=== PATIENT | female | born 1940 | race Caucasian/White ===

== ENCOUNTER 2019-12-31 22:45 | Observation (INO) | payer MEDICARE, MEDICAID, SELFPAY ==
[2019-12-31 22:47] VITALS: BP 159/84; PULSE 116; RESP 21; TEMP 37.6; O2SAT 94; BMI 30.4
[2019-12-31 23:12] LABS: Basophils % 0.1 %; Eosinophils # 0.1 10^3/uL (0.0-0.8); Eosinophils % 0.4 %; Hematocrit 48.1 % (37.0-47.0); Hemoglobin 15.7 g/dL (11.5-15.3); Lymphocytes # 0.7 10^3/uL (0.8-4.8); Lymphocytes % 5.2 %; Mean Corpuscular HGB Conc 32.6 g/dL (30.0-36.0); Mean Corpuscular Hemoglobin 29.3 pg (28.0-34.0); Mean Corpuscular Volume 89.9 fL (81-99); Mean Platelet Volume 10.6 fL (7.4-10.4); Monocytes # 0.5 10^3/uL (0.2-0.9); Monocytes % 3.5 %; Neutrophils # 11.8 10^3/uL (1.8-7.7); Neutrophils % 90.4 %; Nucleated Red Blood Cells % 0 %; Platelet Count 321 10^3/cmm (130-400); Red Blood Count 5.35 10^6/uL (4.1-5.3); Red Cell Distribution Width 13.4 % (12.1-15.1)
--- NOTE | 2019-12-31 23:26 | ED_ITS ---
Documented by User: DAVID Trujillo 01/01/20 17:54 HPI - Abdominal Pain General: Chief Complaint: Abdominal Pain Stated Complaint: ABDOMINAL PAIN Time Seen by Provider: 12/31/19 23:26 Source: patient Mode of arrival: EMS Limitations: no limitations History of Present Illness: HPI narrative: Patient is a 79-year-old female who presents to ED today with complaints of abdominal pain. Patient states the pain began around 4:00-5:00 PM this evening. Patient tells me she has a history of IBS that has presented with abdominal pains previously but nothing has felt this severe. She has had one episode of vomiting. She reports some constipation. Denies fever/chills. Denies dysuria, frequency. She does report some urgency/hesitancy. MD elicited complaint: abdominal pain Pertinent past history: other (IBS) Onset (ago): hour(s) Pain Consistency: constant Location: Diffuse Severity: severe Quality: cramping and aching Radiation: none Migration to: no migration Exacerbating factors: nothing Relieving factors: nothing Associated Symptoms: Reports no associated symptoms, constipation, nausea and vomiting; Denies change in bowel habits, change in stool character, chills, diarrhea, dysuria, fever(s), hematochezia, melena and syncope Review of Systems Const: Denies: fever, chills or body aches Card: Denies: chest pain, palpitations, irregular heart rhythm, edema, lightheadedness, syncope or pre-syncope Resp: Denies: shortness of breath, productive cough or chest congestion GI: Reports: abdominal pain, nausea, vomiting and constipation; Denies: diarrhea, change in bowel habits, painful bowel movements, change in stool character, blood in stool, black tarry stool, white/light colored stool or fatty stool : Denies: flank pain, difficulty urinating, painful urination, urinary frequency, urinary urgency or urinary hesitancy Musc: Denies: neck pain or back pain Skin/Breast: Denies: rash Neuro: Denies: headache, numbness in extremities, weakness in extremities or changes in sensation PFS ED PFSH: Medical History Anxiety Depression GERD (gastroesophageal reflux disease) Hyperlipidemia Hypertension Peripheral neuropathy Peripheral vascular disease Skin cancer Surgical History H/O: hysterectomy Hx of cholecystectomy Hx of tonsillectomy Social History Smoking and tobacco status: never smoked Physical Exam Const: COMMON NORMALS: oriented x3, no limitations and alert GENERAL APPEARANCE: in distress (in pain) NUTRITIONAL APPEARANCE: obese HENMT: COMMON NORMALS: normocephalic and head/scalp atraumatic HEAD & SCALP: normocephalic and atraumatic Resp: COMMON NORMALS: normal respiratory effort and clear to auscultation bilaterally AUSCULTATION: clear to auscultation bilaterally Cardio: COMMON NORMALS: regular rhythm RATE: tachycardic RHYTHM: regular rhythm GI: INSPECTION: Yes other (distended) AUSCULTATION: Yes hypoactive bowel sounds PALPATION: Yes tender (diffuse) : COMMON NORMALS: Yes no CVA tenderness BLADDER/KIDNEY EXAM: Yes no CVA tenderness Back/Pelvis: COMMON NORMALS: no CVA tenderness Extremity: COMMON NORMALS: normal to inspection Neuro: COMMON NORMALS: oriented x3 SENSORIUM/ORIENTATION: Yes alert Skin: COMMON NORMALS: no rashes or lesions noted GENERAL SKIN EXAM: no rashes or lesions noted Course Vital Signs: Vital signs: Vital Signs Temperature 98.7 F 01/01/20 16:00 Pulse Rate 102 H 01/01/20 16:00 Respiratory Rate 20 H 01/01/20 16:00 Blood Pressure 158/88 01/01/20 16:00 Pulse Oximetry 93 01/01/20 16:00 MDM - Abdominal Pain MDM Narrative: Medical decision making narrative: Patient remains tachycardic even after starting her second liter of fluids. She has a white cell count of 13,000. Her lactate is 3.9. She has an overwhelming UTI with 2+ leuks and WBCs too many to count. She has required repeat pain medications here to adequately treat her symptoms. CT scan overall looks okay-questionable gastroenteritis. She has no pyelonephritis evident on the scan. Spoke to Dr. Kumar about admitting pt to hospital. Lab Data: Labs: Lab Results 12/31/19 12/31/19 12/31/19 Range/Units 22:59 22:59 22:59 WBC 13.0 H (4.0-10.0) 10^3/ uL RBC 5.35 H (4.1-5.3) 10^6/u L Hgb 15.7 H (11.5-15.3) g/dL Hct 48.1 H (37.0-47.0) % MCV 89.9 (81-99) fL MCH 29.3 (28.0-34.0) pg MCHC 32.6 (30.0-36.0) g/dL RDW 13.4 (12.1-15.1) % Plt Count 321 (130-400) 10^3/c mm MPV 10.6 H (7.4-10.4) fL Neut % (Auto) 90.4 % Lymph % (Auto) 5.2 % Mccracken % (Auto) 3.5 % Eos % (Auto) 0.4 % Baso % (Auto) 0.1 % Neut # (Auto) 11.8 H (1.8-7.7) 10^3/u L Lymph # (Auto) 0.7 L (0.8-4.8) 10^3/u L Mccracken # (Auto) 0.5 (0.2-0.9) 10^3/u L Eos # (Auto) 0.1 (0.0-0.8) 10^3/u L Baso # (Auto) 0.0 (0.0-0.1) 10^3/u L Nucleated RBC % (a uto) 0 % Nucleated RBCs # 0.0 /100WBC Sodium 140 (136-145) mmol/L Potassium 3.6 (3.5-5.1) mmol/L Chloride 98 (98-107) mmol/L Carbon Dioxide 22 (22-29) mmol/L Anion Gap 23.6 H (5-19) BUN 35 H (8-23) mg/dL Creatinine 1.0 H (0.5-0.9) mg/dL Glucose 140 H (65-115) mg/dL Calculated Osmolal ity 290 (285-295) mOsm/k g Lactate 3.9 H (0.5-2.2) mmol/L Calcium 10.4 (8.5-10.5) mg/dL Total Bilirubin 0.6 (0.15-1.2) mg/dL AST 19 (0-32) U/L ALT 16 (0-33) U/L Alkaline Phosphata se 101 (35-105) IU/L Total Protein 7.4 (6.6-8.7) g/dL Albumin 4.6 (3.5-5.2) g/dL Globulin 2.8 (1.3-4.6) g/dL Lipase 15 (13-60) U/L Urine Color (Yellow) Urine Appearance (CLEAR) Urine pH (5-7) Ur Specific Gravit y (1.005-1.030) Urine Protein (Negative) Urine Glucose (UA) (Normal) Urine Ketones (Negative) Urine Blood (Negative) Urine Nitrate (Negative) Urine Bilirubin (NEGATIVE) Urine Urobilinogen (Negative) mg/dL Ur Leukocyte Angeles ase (Negative) Urine RBC (0-2) /hpf Urine WBC (0-5) /hpf Ur Squamous Epith Cells (0-5) Ur Transition Epit h Cell /hpf Urine Bacteria (NONE) 01/01/20 Range/Units 01:50 WBC (4.0-10.0) 10^3/ uL RBC (4.1-5.3) 10^6/u L Hgb (11.5-15.3) g/dL Hct (37.0-47.0) % MCV (81-99) fL MCH (28.0-34.0) pg MCHC (30.0-36.0) g/dL RDW (12.1-15.1) % Plt Count (130-400) 10^3/c mm MPV (7.4-10.4) fL Neut % (Auto) % Lymph % (Auto) % Mccracken % (Auto) % Eos % (Auto) % Baso % (Auto) % Neut # (Auto) (1.8-7.7) 10^3/u L Lymph # (Auto) (0.8-4.8) 10^3/u L Mccracken # (Auto) (0.2-0.9) 10^3/u L Eos # (Auto) (0.0-0.8) 10^3/u L Baso # (Auto) (0.0-0.1) 10^3/u L Nucleated RBC % (a uto) % Nucleated RBCs # /100WBC Sodium (136-145) mmol/L Potassium (3.5-5.1) mmol/L Chloride (98-107) mmol/L Carbon Dioxide (22-29) mmol/L Anion Gap (5-19) BUN (8-23) mg/dL Creatinine (0.5-0.9) mg/dL Glucose (65-115) mg/dL Calculated Osmolal ity (285-295) mOsm/k g Lactate (0.5-2.2) mmol/L Calcium (8.5-10.5) mg/dL Total Bilirubin (0.15-1.2) mg/dL AST (0-32) U/L ALT (0-33) U/L Alkaline Phosphata se (35-105) IU/L Total Protein (6.6-8.7) g/dL Albumin (3.5-5.2) g/dL Globulin (1.3-4.6) g/dL Lipase (13-60) U/L Urine Color Yellow (Yellow) Urine Appearance Cloudy (CLEAR) Urine pH 6 (5-7) Ur Specific Gravit y 1.005 (1.005-1.030) Urine Protein Neg (Negative) Urine Glucose (UA) Norm (Normal) Urine Ketones Negative (Negative) Urine Blood Neg (Negative) Urine Nitrate Negative (Negative) Urine Bilirubin Neg (NEGATIVE) Urine Urobilinogen Norm (Negative) mg/dL Ur Leukocyte Angeles ase 2+ H (Negative) Urine RBC 0-4 H (0-2) /hpf Urine WBC Too numerous to c nt H (0-5) /hpf Ur Squamous Epith Cells 5-10 H (0-5) Ur Transition Epit h Cell 0-4 /hpf Urine Bacteria 4+ H (NONE) Discharge Plan Discharge Patient Disposition: Admitted As Inpatient Admit Provider: Alma White Clinical Impression: Acute pyelonephritis, Sepsis Condition: Stable Referrals: Linda Eduardo DO [Primary Care Provider] - Discharge Date/Time: 01/01/20 04:15 Coding Level of Care Code ED Assistant Head Cashier for Chg Fwd Exam Comprehensive Documented by User: Arnold Kumar DO 01/01/20 03:28 HPI - Abdominal Pain General: Chief Complaint: Abdominal Pain Stated Complaint: ABDOMINAL PAIN Time Seen by Provider: 12/31/19 23:26 PFS ED PFSH: Medical History Anxiety Depression GERD (gastroesophageal reflux disease) Hyperlipidemia Hypertension Peripheral neuropathy Peripheral vascular disease Skin cancer Surgical History H/O: hysterectomy Hx of cholecystectomy Hx of tonsillectomy Social History Smoking and tobacco status: never smoked Course ED course: Reviewed patient with DAVID Trujillo. Agree with assessment and plan discussed Dr. Nixon will admit for early pyelonephritis sepsis. Patient been given fluid bolus mild improvement cells low-grade fever started on ceftriaxone Vital Signs: Vital signs: Vital Signs Temperature 98.7 F 01/01/20 16:00 Pulse Rate 102 H 01/01/20 16:00 Respiratory Rate 20 H 01/01/20 16:00 Blood Pressure 158/88 01/01/20 16:00 Pulse Oximetry 93 01/01/20 16:00 MDM - Abdominal Pain Lab Data: Labs: Lab Results 12/31/19 12/31/19 12/31/19 Range/Units 22:59 22:59 22:59 WBC 13.0 H (4.0-10.0) 10^3/ uL RBC 5.35 H (4.1-5.3) 10^6/u L Hgb 15.7 H (11.5-15.3) g/dL Hct 48.1 H (37.0-47.0) % MCV 89.9 (81-99) fL MCH 29.3 (28.0-34.0) pg MCHC 32.6 (30.0-36.0) g/dL RDW 13.4 (12.1-15.1) % Plt Count 321 (130-400) 10^3/c mm MPV 10.6 H (7.4-10.4) fL Neut % (Auto) 90.4 % Lymph % (Auto) 5.2 % Mccracken % (Auto) 3.5 % Eos % (Auto) 0.4 % Baso % (Auto) 0.1 % Neut # (Auto) 11.8 H (1.8-7.7) 10^3/u L Lymph # (Auto) 0.7 L (0.8-4.8) 10^3/u L Mccracken # (Auto) 0.5 (0.2-0.9) 10^3/u L Eos # (Auto) 0.1 (0.0-0.8) 10^3/u L Baso # (Auto) 0.0 (0.0-0.1) 10^3/u L Nucleated RBC % (a uto) 0 % Nucleated RBCs # 0.0 /100WBC Sodium 140 (136-145) mmol/L Potassium 3.6 (3.5-5.1) mmol/L Chloride 98 (98-107) mmol/L Carbon Dioxide 22 (22-29) mmol/L Anion Gap 23.6 H (5-19) BUN 35 H (8-23) mg/dL Creatinine 1.0 H (0.5-0.9) mg/dL Glucose 140 H (65-115) mg/dL Calculated Osmolal ity 290 (285-295) mOsm/k g Lactate 3.9 H (0.5-2.2) mmol/L Calcium 10.4 (8.5-10.5) mg/dL Total Bilirubin 0.6 (0.15-1.2) mg/dL AST 19 (0-32) U/L ALT 16 (0-33) U/L Alkaline Phosphata se 101 (35-105) IU/L Total Protein 7.4 (6.6-8.7) g/dL Albumin 4.6 (3.5-5.2) g/dL Globulin 2.8 (1.3-4.6) g/dL Lipase 15 (13-60) U/L Urine Color (Yellow) Urine Appearance (CLEAR) Urine pH (5-7) Ur Specific Gravit y (1.005-1.030) Urine Protein (Negative) Urine Glucose (UA) (Normal) Urine Ketones (Negative) Urine Blood (Negative) Urine Nitrate (Negative) Urine Bilirubin (NEGATIVE) Urine Urobilinogen (Negative) mg/dL Ur Leukocyte Angeles ase (Negative) Urine RBC (0-2) /hpf Urine WBC (0-5) /hpf Ur Squamous Epith Cells (0-5) Ur Transition Epit h Cell /hpf Urine Bacteria (NONE) 01/01/20 Range/Units 01:50 WBC (4.0-10.0) 10^3/ uL RBC (4.1-5.3) 10^6/u L Hgb (11.5-15.3) g/dL Hct (37.0-47.0) % MCV (81-99) fL MCH (28.0-34.0) pg MCHC (30.0-36.0) g/dL RDW (12.1-15.1) % Plt Count (130-400) 10^3/c mm MPV (7.4-10.4) fL Neut % (Auto) % Lymph % (Auto) % Mccracken % (Auto) % Eos % (Auto) % Baso % (Auto) % Neut # (Auto) (1.8-7.7) 10^3/u L Lymph # (Auto) (0.8-4.8) 10^3/u L Mccracken # (Auto) (0.2-0.9) 10^3/u L Eos # (Auto) (0.0-0.8) 10^3/u L Baso # (Auto) (0.0-0.1) 10^3/u L Nucleated RBC % (a uto) % Nucleated RBCs # /100WBC Sodium (136-145) mmol/L Potassium (3.5-5.1) mmol/L Chloride (98-107) mmol/L Carbon Dioxide (22-29) mmol/L Anion Gap (5-19) BUN (8-23) mg/dL Creatinine (0.5-0.9) mg/dL Glucose (65-115) mg/dL Calculated Osmolal ity (285-295) mOsm/k g Lactate (0.5-2.2) mmol/L Calcium (8.5-10.5) mg/dL Total Bilirubin (0.15-1.2) mg/dL AST (0-32) U/L ALT (0-33) U/L Alkaline Phosphata se (35-105) IU/L Total Protein (6.6-8.7) g/dL Albumin (3.5-5.2) g/dL Globulin (1.3-4.6) g/dL Lipase (13-60) U/L Urine Color Yellow (Yellow) Urine Appearance Cloudy (CLEAR) Urine pH 6 (5-7) Ur Specific Gravit y 1.005 (1.005-1.030) Urine Protein Neg (Negative) Urine Glucose (UA) Norm (Normal) Urine Ketones Negative (Negative) Urine Blood Neg (Negative) Urine Nitrate Negative (Negative) Urine Bilirubin Neg (NEGATIVE) Urine Urobilinogen Norm (Negative) mg/dL Ur Leukocyte Angeles ase 2+ H (Negative) Urine RBC 0-4 H (0-2) /hpf Urine WBC Too numerous to c nt H (0-5) /hpf Ur Squamous Epith Cells 5-10 H (0-5) Ur Transition Epit h Cell 0-4 /hpf Urine Bacteria 4+ H (NONE) Discharge Plan Discharge Patient Disposition: Admitted As Inpatient Admit Provider: Alma White Clinical Impression: Acute pyelonephritis, Sepsis Condition: Stable Referrals: Linda Eduardo DO [Primary Care Provider] - Discharge Date/Time: 01/01/20 04:15 Coding Level of Care Code ED Assistant Head Cashier for Chg Fwd Exam Comprehensive
[2019-12-31 23:31] LABS: Alanine Aminotransferase 16 U/L (0-33); Albumin Level 4.6 g/dL (3.5-5.2); Alkaline Phosphatase 101 IU/L (35-105); Anion Gap 23.6 (5-19); Aspartate Amino Transferase 19 U/L (0-32); Blood Urea Nitrogen 35 mg/dL (8-23); Calcium 10.4 mg/dL (8.5-10.5); Carbon Dioxide 22 mmol/L (22-29); Chloride 98 mmol/L (98-107); Globulin 2.8 g/dL (1.3-4.6); Glucose 140 mg/dL (65-115); Lipase 15 U/L (13-60); Osmolality Calculated 290 mOsm/kg (285-295); Potassium 3.6 mmol/L (3.5-5.1); Sodium 140 mmol/L (136-145); Total Bilirubin 0.6 mg/dL (0.15-1.2); Total Protein 7.4 g/dL (6.6-8.7)
--- NOTE | 2019-12-31 23:39 | CTR_ITS ---
PROCEDURE INFORMATION: Exam: CT Abdomen And Pelvis With Contrast Exam date and time: 12/31/2019 12:01 AM Age: 79 years old Clinical indication: Vomiting; Abdominal pain; Generalized; Prior surgery; Surgery type: Cholecystectomy; Additional info: Diffuse abdominal pain; Vomiting TECHNIQUE: Imaging protocol: Computed tomography of the abdomen and pelvis with intravenous contrast. Total DLP: 1393.87 mGy-cm Radiation optimization: All CT scans at this facility use at least one of these dose optimization techniques: automated exposure control; mA and/or kV adjustment per patient size (includes targeted exams where dose is matched to clinical indication); or iterative reconstruction. Contrast material: VISI; Contrast volume: 95 ml; Contrast route: 18G; COMPARISON: US gall bladder [id number] 04/10/2016 9:13 AM FINDINGS: Liver: There is no focal abnormality within the liver. Gallbladder and bile ducts: There has been a cholecystectomy. There is mild intrahepatic biliary tract dilatation and there is dilatation of the common bile duct to 13 mm. This is not unusual post cholecystectomy. Pancreas: Normal. No ductal dilation. Spleen: The spleen demonstrates punctate calcifications, consistent with remote granulomatous organism exposure. Adrenals: Normal. No mass. Kidneys and ureters: There are multiple simple renal cysts. Largest renal cyst on the right measures nearly 9 cm. There is no evidence of hydronephrosis. There is no evidence of renal or ureteral calcifications. Stomach and bowel: Stomach is mildly dilated with fluid. There is moderate fluid distention throughout the length of the colon which could represent some enteritis or diarrhea. Correlation with clinical findings is suggested. There is no evidence of intestinal obstruction. A few mildly fluid-filled loops of small bowel may represent some focal enteritis. Appendix: A normal appendix is identified. Intraperitoneal space: Unremarkable. No free air. No significant fluid collection. Vasculature: Unremarkable. No abdominal aortic aneurysm. Lymph nodes: Unremarkable. No enlarged lymph nodes. Bladder: Unremarkable as visualized. Reproductive: Unremarkable as visualized. Bones/joints: The lumbar spine demonstrates marked degenerative changes at multiple levels. There is a PLIF at L5-S1 and wide L5 laminectomy. Soft tissues: Unremarkable. CT/CT abdomen pelvis w con* [id number] IMPRESSION: 1. Findings may represent gastroenteritis. 2. No evidence of obstruction. 3. Bilateral kidney cysts. COMMENTS: Consistent with the [employer] [place] [employer]'s Incidental Findings Committee white paper (J Am Carol Radiol 2018): Any incidental cystic renal lesion classified in this report as too small to characterize or simple appearing is likely a benign cyst. No follow-up imaging is recommended for these lesions per consensus recommendations based on imaging criteria. Radiation Dose CTDIVOL = (mGy): DLP = 1393.87 (mGy-cm)
[2019-12-31 23:55] VITALS: RESP 16
[2019-12-31] MEDS: morphine 4 mg/mL SDV 1 mL IVP (23:55)
[2019-12-31] MEDS: ondansetron 2 mg/ML SDV 2 mL 4 MG IVP (23:55)
[2020-01-01] VITALS (19 sets, daily range): BP systolic 132–178; BP diastolic 55–91; PULSE 89–115; RESP 12–30; TEMP 36.8–38.2; O2SAT 93–100
[2020-01-01 00:26] LABS: Lactate (Lactic Acid level) 3.9 mmol/L (0.5-2.2)
[2020-01-01] MEDS: sodium chloride 0.9% 1,000 ML 999 ML IV (00:31)
[2020-01-01] MEDS: iodixanol 320 mg/mL 100mL Btl IV (01:11)
[2020-01-01] MEDS: fentaNYL 50 mcg/mL INJ 2mL IVP (02:13)
[2020-01-01 02:14] LABS: Urine Appearance Cloudy (CLEAR); Urine Color Yellow (Yellow)
[2020-01-01 02:15] LABS: Add Urine Microscopic? YES; Bilirubin Urine Neg (NEGATIVE); Blood Urine Neg (Negative); Glucose Urine UA Norm (Normal); Ketones Urine Negative (Negative); Leukocyte Esterase Urine 2+ (Negative); Nitrate Urine Negative (Negative); Protein Urine Neg (Negative); Specific Gravity, Urine 1.005 (1.005-1.030); Urobilinogen Urine Norm (Negative); pH Urine 6 (5-7)
--- NOTE | 2020-01-01 02:19 | XR_ITS ---
WS: [id number] XR chest 1V portable [id number] REASON FOR EXAM: cough/congestion FINDINGS: The minor fissure is somewhat depressed suggested hyperexpanded right upper lung. The heart is normal. There is no pneumonia, pleural effusion, pulmonary edema, or mass effect. The hilum and apices normal. XR/XR chest 1V portable [id number] IMPRESSION: Hyper aerated right upper lung Negative chest for acute findings.
[2020-01-01 02:30] LABS: RBC Urine 0-4 /hpf (0-2)
[2020-01-01 02:31] LABS: Add Urine Culture? Yes; Bacteria Urine 4+; Transitional Epi Cells Urine 0-4 /hpf; WBC Urine TOO NUMEROUS TO CNT /hpf (0-5)
[2020-01-01] MEDS: cefTRIAXone 1,000 MG in sodium chloride 0.9% (plus) 50 ML 100 MG IV (03:30)
--- NOTE | 2020-01-01 03:38 | PM.HP ---
Providers/Chief Complaint Admitting Physician: Alma White MD Primary Care Provider: Linda Eduardo DO Chief Complaint: ABDOMINAL PAIN History of Present Illness Kim Lin is a 79 year old female with HTN, HLD, PAD, depression, anxiety, GERD, TIA, OA, peripheral neuropathy presenting today with c/o abdominal pain in the left nury with radiation into back starting at 4 am today suddenly. No prior similar episodes. multiple episodes of vomiting+. Diarrhea 2 episodesa since coming to ER. Tmax 99.6F. denies dysuria. Ct abdomen with possible gatsroenteritis, B/L kidney cysts, no evidence of obstrcution. UA with numerous WBC. Review of Systems General: Reports: 10 or more systems reviewed and unremarkable except in HPI and below Const: Denies: fever, chills or body aches Eyes: Denies: change in vision, blurry vision or photophobia ENMT: Reports: hoarseness; Denies: throat pain, enlarged tonsils, painful swallowing or nasal congestion Card: Denies: chest pain, palpitations, irregular heart rhythm, edema, swelling of feet/ankles, lightheadedness, pre-syncope, shortness of breath on exertion or shortness of breath when lying down Resp: Denies: shortness of breath, productive cough, non-productive cough, wheezing, stridor, pain on inspiration, change in phlegm color, coughing up blood or chest congestion GI: Reports: abdominal pain, nausea and vomiting; Denies: vomiting blood, coffee grounds in vomit, difficulty swallowing, heartburn/indigestion, diarrhea, constipation, cramping, change in stool character, blood in stool or black tarry stool : Denies: flank pain, difficulty urinating, painful urination, urinary frequency, urinary urgency, urinary hesitancy or blood in urine Musc: Denies: neck pain, back pain, extremity pain, joint swelling, joint warmth or deformity Neuro: Denies: headache, numbness in extremities, weakness in extremities, changes in sensation, difficulty walking, frequent falls, dizziness, vertigo, behavioral changes, slurred speech or seizure-like activity Psych: Denies: anxiety, depression, suicidal ideation or homicidal ideation Endo: Denies: excessive urination, excessive thirst, tired all the time, cold intolerance or hot flashes William/Lymph: Denies: easy bruising or easy bleeding Medications/Allergies Home Medications Medication Instructions Recorded Confirmed Last Taken Type alprazolam 0.5 mg PO BID PRN 01/01/20 01/01/20 Unknown History aspirin 325 mg PO DAILY 01/01/20 01/01/20 Unknown History atorvastatin 40 mg PO QPM 01/01/20 01/01/20 Unknown History clopidogrel 75 mg PO DAILY 01/01/20 01/01/20 Unknown History diltiazem HCl 240 mg PO QAM 01/01/20 01/01/20 Unknown History diphenhydramine HCl 25 - 50 mg PO BEDTIME PRN 01/01/20 01/01/20 Unknown History gabapentin 1,200 mg PO TID 01/01/20 01/01/20 Unknown History hydrochlorothiazide 12.5 mg PO DAILY 01/01/20 01/01/20 Unknown History ibuprofen 200 - 800 mg PRN 01/01/20 Unknown History losartan 25 mg PO DAILY 01/01/20 01/01/20 Unknown History metoprolol tartrate 12.5 mg PO BID 01/01/20 01/01/20 Unknown History omeprazole magnesium [Prilosec OTC] 40 mg PO DAILY 01/01/20 01/01/20 Unknown History ondansetron HCl [Zofran] 4 mg PO Q8H PRN 01/01/20 01/01/20 Unknown History tizanidine [Zanaflex] 2 mg PO TID PRN 01/01/20 01/01/20 Unknown History tramadol [Ultram] 50 - 100 mg PO TID PRN 01/01/20 01/01/20 Unknown History vortioxetine [Trintellix] 10 mg PO DAILY 01/01/20 01/01/20 Unknown History zolpidem 10 mg PO BEDTIME PRN 01/01/20 01/01/20 Unknown History Allergies Allergy/AdvReac Type Severity Reaction Status Date / Time carvedilol [From Coreg] Allergy Unknown Verified 12/31/19 22:53 PFSH Acute PFSH: Medical History Anxiety Depression GERD (gastroesophageal reflux disease) Hyperlipidemia Hypertension Peripheral neuropathy Peripheral vascular disease Skin cancer Surgical History H/O: hysterectomy Hx of cholecystectomy Hx of tonsillectomy Social History Smoking and tobacco status: never smoked Vitals/I&O/Wt Last Vital Signs Temp 99.7 F H 12/31/19 22:47 Pulse 116 H 12/31/19 22:47 Resp 14 01/01/20 02:13 BP 159/84 12/31/19 22:47 Pulse Ox 94 12/31/19 22:47 Weight last 48 hrs Weight 85.729 kg Physical Exam Narrative: EXAM NARRATIVE: GEN: Awake, alert and oriented, no acute distress CVS: S1S2 N RS: CTA B/L Abd: Soft, nt/nd , bs+. 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[employer] EDUCATION: no focal neuro deficits Data : 12/31/19 22:59 12/31/19 22:59 Micro: Microbiology 01/01/20 03:00 Blood Culture - Preliminary Blood SPECIMEN COLLECTED 01/01/20 02:59 Blood Culture - Preliminary Blood SPECIMEN COLLECTED A&P Assessment and plan (1) Depression: Status: Acute Code(s): F32.9 - Major depressive disorder, single episode, unspecified (2) Peripheral vascular disease: Status: Acute Code(s): I73.9 - Peripheral vascular disease, unspecified (3) Hyperlipidemia: Status: Acute Code(s): E78.5 - Hyperlipidemia, unspecified (4) Hypertension: Status: Acute Code(s): I10 - Essential (primary) hypertension (5) Sepsis: Status: Acute Code(s): A41.9 - Sepsis, unspecified organism (6) Acute pyelonephritis: Status: Acute Code(s): N10 - Acute pyelonephritis Additional A&P Information Admit to med/surg Sepsis criteria met with tachycardia, elevated lactate,. leukocytosis . clinically appears to be left pyelonephritis empiric zosyn morphine and toradol for pain control +/- gatsroenteritis, 1 episode of diarrhea after ER presentation- check c diff and enteric PCR panel Full code dvt ppx: lovenox Attestations Medical Necessity Statement*: anticipate> 2Mn for pyeleopnephritis, iv abx Coding Level of Care Code Acute Pressure Tester for [facility] Fwd Diagnoses Depression F32.9 Peripheral vascular disease I73.9 Hyperlipidemia E78.5 Hypertension I10 Sepsis A41.9 Acute pyelonephritis N10
[2020-01-01] MEDS: morphine 4 mg/mL SDV 1 mL IVP (04:14)
--- NOTE | 2020-01-01 04:18 | PC.NURSE ---
RN reviewed and agrees with assessment
--- NOTE | 2020-01-01 04:20 | PC.NURSE ---
Arrived to unit from ER by wheelchair. Alert and oriented X4 . Breathing even and non-labored on room air. Reports abdominal pain 04/24.Denies nausea at this time, diarrhea on arrival to unit. Oriented to room and light, admission started by bid writer at this time.
[2020-01-01] MEDS: morphine 4 mg/mL SDV 1 mL 2 MG IVP (05:40)
[2020-01-01] MEDS: D5-NS 0.45% + KCL 20 mEq 20 MEQ/1,000 ML BAG 100 MEQ IV (05:40)
[2020-01-01] MEDS: ketorolac 30 mg/mL INJ 15 MG IVP (06:41)
--- NOTE | 2020-01-01 07:59 | XR_ITS ---
WS: [id number] XR KUB portable [id number] REASON FOR EXAM: sbo FINDINGS: Scattered gas in the small bowel is seen but no definite small bowel obstruction. There is contrast seen in the kidneys and urinary bladder and a cystocele is seen in the bladder. There is fusion of the L5-S1 area posteriorly. There is no free air in the abdomen. XR/XR KUB portable [id number] IMPRESSION: Contrast outlines portions of the kidneys and urinary bladder. There is no definite small bowel obstruction.
[2020-01-01] MEDS: HYDROmorphone 1 mg/mL INJ 1 mL IVP ×6 (08:09→22:34)
[2020-01-01] MEDS: enoxaparin 30 mg/0.3 mL Syringe SUBCUT (08:10)
[2020-01-01 08:42] LABS: Alanine Aminotransferase 16 U/L (0-33); Albumin Level 3.9 g/dL (3.5-5.2); Alkaline Phosphatase 83 IU/L (35-105); Aspartate Amino Transferase 21 U/L (0-32); C Reactive Protein 36.7 mg/L (0.0-4.9); Globulin 2.5 g/dL (1.3-4.6); Lipase 11 U/L (13-60); Magnesium 1.9 mg/dL (1.7-2.3); Phosphorus 2.4 mg/dL (2.5-4.5); Total Bilirubin 0.6 mg/dL (0.15-1.2); Total Protein 6.4 g/dL (6.6-8.7)
[2020-01-01 08:44] LABS: Troponin(5th) Baseline 19 ng/mL (0-10)
[2020-01-01 08:58] LABS: Lactic Sepsis W/Reflex 2.3 mmol/L (0.5-2.2)
[2020-01-01 09:10] LABS: Procalcitonin 0.18 ng/mL (0-0.5)
[2020-01-01 09:20] LABS: Erythrocyte Sedimentation Rate 10 mm/hr (0-15)
[2020-01-01] MEDS: sodium chloride 0.9% 1,000 ML 75 ML IV ×2 (09:28→23:35)
[2020-01-01] MEDS: piperacillin-tazobactam 3.375 GM in sodium chloride 0.9% (plus) 50 ML IV ×2 (09:29→16:41)
[2020-01-01] MEDS: ondansetron 2 mg/ML SDV 2 mL 4 MG IVP ×3 (09:29→20:39)
[2020-01-01 10:08] LABS: Troponin 5 2HR 17.74 ng/mL (0-10)
[2020-01-01 10:08] LABS: Reflex Lactate Order REFLEX LACTIC ORDERD
[2020-01-01 10:16] LABS: Troponin 5 2HR Delta -1.26 ABS# (0-10)
[2020-01-01 10:58] LABS: Lactic Acid level (Lactate) 1.1 mmol/L (0.5-2.2)
--- NOTE | 2020-01-01 12:41 | P.PN_ITS ---
Subjective Subjective: Interval history: This morning patient is laying in bed, with severe abdominal pain, states that no position is comfortable, states that the diarrhea that she experienced only began when she was here in the ER, states that she also has some back pain, continues to have mild low-grade fevers, feels nauseous, no lightheadedness, or dizziness, states that the pain medication is not helping or is wearing off quickly Vitals/I&O/Wt Last Vital Signs Temp 100.8 F H 01/01/20 08:00 Pulse 93 01/01/20 12:11 Resp 16 01/01/20 12:11 BP 134/55 01/01/20 12:11 Pulse Ox 96 01/01/20 12:11 12/31/19 01/01/20 01/01/20 22:59 06:59 14:59 Intake Total 1050 / 1050 375 / 375 Output Total 900 / 900 Balance 1050 / 1050 -525 / -525 Weight last 48 hrs Weight 85.729 kg Physical Exam Const: COMMON NORMALS: no apparent distress and oriented x3 HENMT: COMMON NORMALS: normocephalic HEAD & SCALP: normocephalic Neck/C-Spine: COMMON NORMALS: no JVD Resp: COMMON NORMALS: normal respiratory effort, no retractions, no use of accessory muscles and clear to auscultation bilaterally AUSCULTATION: clear to auscultation bilaterally Cardio: COMMON NORMALS: no JVD, regular rate, regular rhythm, S1 normal heart sound and S2 normal heart sound RATE: regular rate RHYTHM: regular rhythm HEART SOUNDS: S1 normal and S2 normal GI: COMMON NORMALS: normal to inspection, nondistended, normoactive bowel sounds, soft to palpation and no bruits PALPATION: Yes soft, Yes tender Details: LLQ, RLQ, LUQ and RUQ, No guarding, No rigid, No hepatosplenomegaly, No hepatomegaly, No splenomegaly and No rebound tenderness present PERCUSSION: normal to percussion Extremity: COMMON NORMALS: normal capillary refill, no clubbing, cyanosis or edema, no calf tenderness and no pedal edema Neuro: COMMON NORMALS: oriented x3 Psych: COMMON NORMALS: mental status grossly normal Data : 12/31/19 22:59 12/31/19 22:59 Micro: Microbiology 03/18/20 07:34 Enteric Pathogens (PCR) - Final Stool - Stool Aspirate C.difficile Toxin B Gene (PCR) - Final 01/01/20 03:00 Blood Culture - Preliminary Blood SPECIMEN COLLECTED 01/01/20 02:59 Blood Culture - Preliminary Blood SPECIMEN COLLECTED A&P Assessment and plan (1) Depression: Status: Acute Code(s): F32.9 - Major depressive disorder, single episode, unspecified (2) Peripheral vascular disease: Status: Acute Code(s): I73.9 - Peripheral vascular disease, unspecified (3) Hyperlipidemia: Status: Acute Code(s): E78.5 - Hyperlipidemia, unspecified (4) Hypertension: Status: Acute Code(s): I10 - Essential (primary) hypertension (5) Sepsis: Status: Acute Code(s): A41.9 - Sepsis, unspecified organism (6) Acute pyelonephritis: Status: Acute Code(s): N10 - Acute pyelonephritis Additional A&P Information Sepsis criteria met with tachycardia, elevated lactate,. leukocytosis, fevers clinically appears to be left pyelonephritis empiric zosyn Follow urine cultures, follow blood cultures Dilaudid for pain control Given gastroneuritis, will check a C. 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
--- NOTE | 2020-01-01 12:57 | ECG_ITS ---
Measurements Intervals [place] Rate: 89 P: 75 PA: 232 QRS: 3 QRSD: 119 T: 84 QT: 413 QTc: 503 SINUS RHYTHM WITH FIRST DEGREE AV BLOCK INCOMPLETE RIGHT BUNDLE BRANCH BLOCK [90+ ms QRS DURATION, TERMINAL R IN V1/V2, 40+ ms S IN I/aVL/V4/V5/V6] NONSPECIFIC T-WAVE ABNORMALITY Compared to ECG 11/02/2018 23:32:24 First degree AV block now present T-wave abnormality now present Ventricular premature complex(es) no longer present Indeterminate axis no longer present Electronically Signed On 01-02-2020 12:47:55 CDT by Fracisco Lucero [email or web address]
[2020-01-01] MEDS: metoclopramide 5 mg/mL SDV 2 mL IVP ×2 (13:15→18:33)
--- NOTE | 2020-01-01 13:21 | PC.NURSE ---
Patient reports and improvement in pain however continues to complain of severe nausea. Dr aware and orders received
[2020-01-01 13:48] LABS: Troponin 5 6HR 15.34 ng/mL (0-10)
[2020-01-01 13:49] LABS: Troponin 5 6HR Delta -3.66 ng/L (0-12)
--- NOTE | 2020-01-01 15:09 | PC.NURSE ---
Daughter Dotty here and reports that the patient came to her house to visit on Monday and that after she left that Dotty had NVD from an apparent GI virus that lasted 24 to [address] Vines notified
[2020-01-01] MEDS: ALPRAZolam 0.5 mg Tablet PO (23:34)
[2020-01-02] MEDS: piperacillin-tazobactam 3.375 GM in sodium chloride 0.9% (plus) 50 ML IV (00:32)
[2020-01-02 04:00] VITALS: BP 190/100; PULSE 115; RESP 24; TEMP 36.8; O2SAT 99
--- NOTE | 2020-01-02 04:43 | PC.NURSE ---
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 this nurse entered to help. pt is more unsteady on her feet than beginning of shift. pt reeducated about bed alarm and reminded to continue using call light. BSC placed at side of bed.
[2020-01-02 05:33] LABS: Eosinophils % 0.6 %; Hematocrit 41.7 % (37.0-47.0); Hemoglobin 13.5 g/dL (11.5-15.3); Lymphocytes # 1.8 10^3/uL (0.8-4.8); Lymphocytes % 26.1 %; Mean Corpuscular HGB Conc 32.4 g/dL (30.0-36.0); Mean Corpuscular Hemoglobin 29.6 pg (28.0-34.0); Mean Corpuscular Volume 91.4 fL (81-99); Mean Platelet Volume 10.7 fL (7.4-10.4); Monocytes # 0.7 10^3/uL (0.2-0.9); Monocytes % 10.4 %; Neutrophils # 4.2 10^3/uL (1.8-7.7); Neutrophils % 62.6 %; Nucleated Red Blood Cells % 0 %; Platelet Count 239 10^3/cmm (130-400); Red Blood Count 4.56 10^6/uL (4.1-5.3); White Blood Count 6.7 10^3/uL (4.0-10.0)
[2020-01-02 05:47] LABS: Alanine Aminotransferase 22 U/L (0-33); Alkaline Phosphatase 85 IU/L (35-105); Anion Gap 18.6 (5-19); Aspartate Amino Transferase 32 U/L (0-32); Blood Urea Nitrogen 18 mg/dL (8-23); Calcium 9.1 mg/dL (8.5-10.5); Carbon Dioxide 20 mmol/L (22-29); Chloride 109 mmol/L (98-107); Globulin 2.5 g/dL (1.3-4.6); Glucose 116 mg/dL (65-115); Osmolality Calculated 297 mOsm/kg (285-295); Sodium 145 mmol/L (136-145); Total Bilirubin 0.4 mg/dL (0.15-1.2); Total Protein 6.5 g/dL (6.6-8.7)
[2020-01-02 05:52] LABS: Potassium 2.6 mmol/L (3.5-5.1)
[2020-01-02 06:01] VITALS: RESP 18
[2020-01-02] MEDS: HYDROmorphone 1 mg/mL INJ 1 mL IVP (06:01)
[2020-01-02] MEDS: metoclopramide 5 mg/mL SDV 2 mL IVP (06:11)
--- NOTE | 2020-01-02 06:15 | PC.NURSE ---
pain medication pt requesting pain medication. this nurse pulled Tylenol for pt. pt asked why Tylenol was being given. pt specifically asked for Dilaudid. pt educated that it's best to start with the lowest dose medication and work up. pt also educated that tylenol is broken down in the liver whereas other medications are broken down in the kidneys and it would be easier on her kidneys since she is here for pyleonephritis. pt took the medicine cup of Tylenol, handed the cup back and stated, I don't want this. I might as well be taking water and it's just going to upset my stomach. I will not take this, I want the Dilaudid.
[2020-01-02] MEDS: potassium chloride premix 40 MEQ/100 ML PREMIX 25 MEQ IV (06:35)
[2020-01-02] MEDS: dilTIAZem ER (24HR) 240 mg Capsule PO (06:36)
[2020-01-02 08:00] VITALS: BP 190/83; PULSE 113; RESP 17; TEMP 37; O2SAT 95
[2020-01-02] MEDS: ondansetron 2 mg/ML SDV 2 mL 4 MG IVP (08:03)
[2020-01-02] MEDS: clopidogrel 75 mg Tablet PO (08:04)
[2020-01-02] MEDS: enoxaparin 40 mg/0.4 mL Syringe SUBCUT (08:04)
[2020-01-02] MEDS: gabapentin 400 mg Capsule 1200 MG PO (08:04)
[2020-01-02] MEDS: pantoprazole DR 40 mg Tablet PO (08:04)
[2020-01-02] MEDS: hydroCHLOROthiazide 25 mg Tablet 12.5 MG PO (08:04)
[2020-01-02 08:05] VITALS: BP 190/100
[2020-01-02] MEDS: losartan 50 mg Tablet 25 MG PO (08:05)
[2020-01-02] MEDS: metoprolol tartrate 25 mg Tablet 12.5 MG PO (08:05)
[2020-01-02 11:54] VITALS: BP 190/100
[2020-01-02 12:00] VITALS: BP 158/80; PULSE 20; RESP 20; TEMP 37.3; O2SAT 96
--- NOTE | 2020-01-02 18:38 | PM.DCS ---
Discharge Providers Date of Admission: 01/01/20 06:46 Date of Discharge: January 02, 2020 Attending Provider at Admission: Alma White MD Attending Provider at Discharge: Moe Vines MD Primary Care Provider: Linda Eduardo DO Diagnoses at Discharge Discharge Diagnosis (1) Depression: Status: Acute (2) Peripheral vascular disease: Status: Acute (3) Hyperlipidemia: Status: Acute (4) Hypertension: Status: Acute (5) Sepsis: Status: Acute (6) Acute pyelonephritis: Status: Acute Reason for Visit Reason for Visit: Reason For Visit: ABDOMINAL PAIN Hospital Course Discharge Summary: This is a 71-year-old female with a past medical history of peripheral vascular disease, hyperlipidemia, hypertension, severe peripheral neuropathy, depression, who presented to the emergency room due to complaints of abdominal pain, back pain. Patient was admitted for sepsis secondary to acute pyelonephritis, received Zosyn, IV fluids, clinically improved. However due to her severe peripheral neuropathy, maintaining an IV was difficult, as patient has severe pain with IV in place, on the morning of discharge, patient stated that she could not tolerate the IV anymore, she wanted to go home, she stated that she could hydrate well at home, and take antibiotics as prescribed at home. I advised patient risks of going home too early, as I advised she would require another day of IV hydration as she looked dehydrated, however patient was adamant about going home, I advised of the risks, the associated morbidity and mortality, patient voiced understanding, all questions answered, patient wanted to go home, patient was discharged with encouragement of oral hydration and Levaquin. So far patient's urine cultures are pending. On admission patient also had complaints of diarrhea, CT scan showed colitis, she was started on IV hydration, her stool studies were unremarkable, C. difficile was negative, she was discharged on instructions to drink plenty of electrolyte balance fluids. Patient was advised that she were to feel lightheaded, dizzy, worsening diarrhea come back to the emergency room. Physical Exam Const: COMMON NORMALS: no apparent distress and oriented x3 HENMT: COMMON NORMALS: normocephalic HEAD & SCALP: normocephalic Neck/C-Spine: COMMON NORMALS: no JVD Resp: COMMON NORMALS: normal respiratory effort, no retractions, no use of accessory muscles and clear to auscultation bilaterally AUSCULTATION: clear to auscultation bilaterally Cardio: COMMON NORMALS: no JVD, regular rate, regular rhythm, S1 normal heart sound and S2 normal heart sound RATE: regular rate RHYTHM: regular rhythm HEART SOUNDS: S1 normal and S2 normal GI: COMMON NORMALS: normal to inspection, nondistended, normoactive bowel sounds, soft to palpation, non-tender, no hepatosplenomegaly, no masses and no bruits PALPATION: Yes soft and Yes no hepatosplenomegaly Extremity: COMMON NORMALS: normal capillary refill, no clubbing, cyanosis or edema, no calf tenderness and no pedal edema Neuro: COMMON NORMALS: oriented x3 Psych: COMMON NORMALS: mental status grossly normal Discharge Data Data Completed and Pending: Completed Studies During Hospitalization Category Date Time Status CT abdomen pelvis w con* [id number] Urge nt Cat Scan 12/31/19 23:39 Completed XR KUB portable 7 [id number] Routine Exams 01/01/20 07:59 Completed XR chest 1V bhumi ble [id number] Urgent Exams 01/01/20 02:19 Completed Pending at discharge Category Date Time Status Blood Culture Sta t Lab 01/01/20 03:00 Results Urine Culture Sta t Lab 01/01/20 01:50 Results Labs from last 24 hours 01/02/20 01/02/20 04:46 04:46 WBC 6.7 RBC 4.56 Hgb 13.5 Hct 41.7 MCV 91.4 MCH 29.6 MCHC 32.4 RDW 14.0 Plt Count 239 MPV 10.7 H Neut % (Auto) 62.6 Lymph % (Auto) 26.1 Lander % (Auto) 10.4 Eos % (Auto) 0.6 Baso % (Auto) 0.0 Neut # (Auto) 4.2 Lymph # (Auto) 1.8 Lander # (Auto) 0.7 Eos # (Auto) 0.0 Baso # (Auto) 0.0 Nucleated RBC % (a uto) 0 Nucleated RBCs # 0.0 Sodium 145 Potassium 2.6 L* Chloride 109 H Carbon Dioxide 20 L Anion Gap 18.6 BUN 18 Creatinine 0.8 Glucose 116 H Calculated Osmolal ity 297 H Calcium 9.1 Total Bilirubin 0.4 AST 32 ALT 22 Alkaline Phosphata se 85 Total Protein 6.5 L Albumin 4.0 Globulin 2.5 Vitals: Last Vital Signs Temp 99.1 F 03/19/20 12:00 Pulse 20 L 01/02/20 12:00 Resp 20 H 01/02/20 12:00 BP 158/80 01/02/20 12:00 Pulse Ox 96 01/02/20 12:00 Discharge Plan Discharge Patient Disposition: Home, Self-Care Condition: Stable Prescriptions: New Levaquin 750 mg tablet 750 mg PO DAILY 7 Days Qty: 7 RF: 0 Klor-Con M20 20 mEq tablet,ER particles/crystals 20 meq PO BID 3 Days Qty: 6 RF: 0 Continued atorvastatin 40 mg Tablet 40 mg PO QPM RF: 0 aspirin 325 mg Tablet 325 mg PO DAILY RF: 0 diltiazem HCl 240 mg Capsule,Extended Release 24 Hr 240 mg PO QAM RF: 0 gabapentin 800 mg Tablet 1,200 mg PO TID RF: 0 losartan 25 mg Tablet 25 mg PO DAILY RF: 0 zolpidem 10 mg Tablet 10 mg PO BEDTIME PRN (Reason: Insomnia) RF: 0 Prilosec OTC 20 mg Tablet,Delayed Release (Dr/Ec) 40 mg PO DAILY RF: 0 hydrochlorothiazide 12.5 mg Tablet 12.5 mg PO DAILY RF: 0 Trintellix 10 mg Tablet 10 mg PO DAILY RF: 0 Zofran 4 mg Tablet 4 mg PO Q8H PRN (Reason: Nausea) RF: 0 clopidogrel 75 mg Tablet 75 mg PO DAILY RF: 0 Ultram 50 mg Tablet 50 - 100 mg PO TID PRN (Reason: Pain) RF: 0 alprazolam 0.5 mg Tablet 0.5 mg PO BID PRN (Reason: Anxiety) RF: 0 diphenhydramine HCl 25 mg Tablet 25 - 50 mg PO BEDTIME PRN (Reason: insomnia) RF: 0 ibuprofen 200 mg Tablet 800 mg PO Q8H PRN (Reason: Pain) RF: 0 metoprolol tartrate 25 mg Tablet 12.5 mg PO BID RF: 0 Zanaflex 2 mg Capsule 2 mg PO TID PRN (Reason: muscle spams) RF: 0 Discharge Orders: Discharge Order (Routine); Ordered 01/02/20 Ordered By: Moe Vines Other Ambulatory Orders: Comprehensive Metabolic Panel (Routine) Timeframe: 1 Week Facility: [facility] - Location: Lab - Main Lab Ordered By: Moe Vines Referrals: Linda Eduardo DO [Primary Care Provider] - 01/07/20 3:00 pm Discharge Diet: Regular Discharge Activity: Resume usual activity Patient Instructions: Depression, Potassium Chloride (By mouth), Levofloxacin (By mouth), Dehydration (DC), Acute Pyelonephritis (DC), Gastroesophageal Reflux Disease (DC), Anxiety (DC), Peripheral Neuropathy Activity Restrictions/Additional Instructions: -Drink plenty of liquids, greater than 2 L a day -You are at high risk of dehydration, ensure that you drink plenty of liquids -Take antibiotics as prescribed -If you have fevers, chills come back to the emergency room -Follow-up with primary care for peripheral neuropathy Discharge Date/Time: 01/02/20 14:05 Discharge Attestations Time Spent in Discharge Care*: less than 30 min Quality Metrics Clinical Quality Measures During this hospital stay, did patient experience: None Coding Level of Care Code 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
== END 2020-01-02 14:05 | disposition home or self-care (01) ==
LOC: ER 01-01 03:26 → ICU 01-01 03:47 → MEDSURG 01-02 11:41 → ICU 01-06 07:17
PROVIDERS: Physician Assistant; Admitting Provider Student in an Organized Health Care Education/Training Program; Emergency Provider Family Medicine; Family Provider Family Medicine; PCP Family Medicine; Visit Provider Family Medicine
DX: A41.9 Sepsis, unspecified organism (principal); N10 Acute pyelonephritis; F32.9 Major depressive disorder, single episode, unspecified; I73.9 Peripheral vascular disease, unspecified; E78.5 Hyperlipidemia, unspecified; I10 Essential (primary) hypertension; F41.9 Anxiety disorder, unspecified; K21.9 Gastro-esophageal reflux disease without esophagitis; Z86.73 Personal history of transient ischemic attack (TIA), and cerebral infarction without residual deficits; M19.90 Unspecified osteoarthritis, unspecified site; G62.9 Polyneuropathy, unspecified; Z79.82 Long term (current) use of aspirin
CPT/HCPCS: 12345; 36415; 71045; 74018; 74177; 80053; 80076; 81001; 83605; 83690; 83735; 84100; 84145; 84484; 85025; 85651; 86140; 87040; 87077; 87086; 87493; 87505; 93005; 93010; 96372; 96374; 96375; 99283; 99285; G0378; J0696; J1170; J1650; J1885; J2270; J2405; J2543; J2765; J3010; J3480; J7030; Q9967

== ENCOUNTER 2020-09-29 12:12 | Observation (INO) | payer MEDICARE, MEDICAID, SELFPAY ==
[2020-09-29 12:13] VITALS: BP 182/88; PULSE 113; RESP 18; TEMP 36.4; O2SAT 96; BMI 32.3
--- NOTE | 2020-09-29 12:14 | CT_ITS ---
WS: [id number] CT head wo con* [id number] REASON FOR EXAM: ams IV CONTRAST ADMINISTERED: Noncontrast TOTAL EXAM DLP: 1144.[address] scans at [facility] use at least one of these dose optimization techniques: automat ed exposure control; mA and/or kV adjustment per patient size (includes targeted exams where dose is matched to clinical indication); or iterative reconstruction. FINDINGS: Examination moderately degraded by motion artifact. The examination is unchanged compared to 09/04/2019. No midline shift or other significant mass effect. No findings of intracranial hemorrhage and no extra-axial fluid collection. No focal brain parenchymal abnormality. CT/CT head wo con* [id number] IMPRESSION: The examination is moderately degraded by patient motion artifact. No acute fin ding is identified.
--- NOTE | 2020-09-29 12:30 | W.ED.PSYCH ---
HPI - Psych General: Chief Complaint: Psychiatric Symptoms Stated Complaint: MENTAL HEALTH EXAM Time Seen by Provider: 09/29/20 12:13 Source: patient and EMS Mode of arrival: EMS Limitations: no limitations History of Present Illness: HPI Narrative: 79-year-old female who is here with EMS and police. Police states they were called out to her residence 3-4 times throughout the night. She is been confused. She was knocking on a neighbor's door. She claims she is looking for her who 2 to 3 years ago. I speak to her and she is able to tell me the year and who the president is but then has periods of confusion and did tell me she lives with her . She lives alone and police brought her in as they were worried about her safety living alone. She also originally did not think she had any children. Her daughter is here bedside and she did not recognize her daughter. She is adamantly trying to decline any help. Daughter states that she is not safe at her own home that she has been wandering outside Associated symptoms: Deny depression Review of Systems Const: Denies: fever(s), chills, body aches or change in appetite Eyes: Denies: blurry vision or eye discomfort ENMT: Denies: throat pain or dental pain Card: Denies: chest pain Resp: Denies: dyspnea GI: Denies: abdominal pain, nausea, vomiting or diarrhea : Denies: dysuria Musc: Denies: neck pain or back pain Skin/Breast: Denies: rash Neuro: Reports: confusion; Denies: headache(s) Psych: Denies: depression William/Lymph: Denies: easy bruising All/Imm: Denies: urticaria PFSH ED PFSH: Medical History (Updated 09/29/20 @ 16:30 by Moe Vines MD) Anxiety Chronic back pain Depression GERD (gastroesophageal reflux disease) Hyperlipidemia Hypertension Peripheral neuropathy Peripheral vascular disease Skin cancer Surgical History H/O: hysterectomy Hx of cholecystectomy Hx of tonsillectomy Family History (Updated 09/29/20 @ 16:28 by Moe Vines MD) Other Cancer Hypertension Social History Smoking and tobacco status: never smoked Alcohol intake: never Substance/Drug Use: never Physical Exam Const: COMMON NORMALS: no acute distress, patient oriented x3 and healthy appearing HENMT: COMMON NORMALS: normocephalic and atraumatic HEAD & SCALP: normocephalic and atraumatic Eye: COMMON NORMALS: Equal, round and reactive pupils present and EOMs intact bilaterally PUPIL: Yes Equal, round and reactive pupils present Neck/C-Spine: COMMON NORMALS: full ROM and supple Chest: COMMONS NORMALS: normal inspection of the chest and normal palpation of entire chest wall Resp: COMMON NORMALS: normal respiratory effort, No retractions, No use of accessory muscles and clear to auscultation bilaterally AUSCULTATION: clear to auscultation bilaterally Cardio: COMMON NORMALS: regular rate, regular rhythm and No murmurs present (Cardio) RATE: regular rate RHYTHM: regular rhythm GI: COMMON NORMALS: Normal to inspection, nondistended, normoactive bowel sounds present, Soft to palpation, non-tender and no masses PALPATION: Yes Soft to palpation Extremity: COMMON NORMALS: normal to inspection and full ROM Neuro: COMMON NORMALS: patient oriented x3, moves all extremities and no focal motor deficits Psych: COMMON NORMALS: mental status grossly normal, Normal thought process present and cooperative THOUGHT PROCESS: Normal thought process present Skin: COMMON NORMALS: no rashes or lesions noted and no wounds GENERAL SKIN EXAM: no rashes or lesions noted MDM - Psych MDM Narrative: Medical decision making narrative: Kim presents with altered mental status. She does have acute cystitis could be causing her confusion. I spoke to hospitalist and will admit as she is too confused to go home. Patient given Rocephin here. Lab Data: Labs: Lab Results 09/29/20 09/29/20 09/29/20 Range/Units 14:15 14:15 14:49 WBC 13.5 H (4.0-10.0) 10^3/ uL RBC 4.29 (4.1-5.3) 10^6/u L Hgb 12.8 (11.5-15.3) g/dL Hct 39.2 (37.0-47.0) % MCV 91.4 (81-99) fL MCH 29.8 (28.0-34.0) pg MCHC 32.7 (30.0-36.0) g/dL RDW 14.7 (12.1-15.1) % Plt Count 295 (130-400) 10^3/c mm MPV 12.1 H (7.4-10.4) fL Neut % (Auto) 78.7 % Lymph % (Auto) 15.4 % Crook % (Auto) 5.3 % Eos % (Auto) 0.0 % Baso % (Auto) 0.3 % Neut # (Auto) 10.65 H (1.8-7.7) 10^3/u L Lymph # (Auto) 2.1 (0.8-4.8) 10^3/u L Crook # (Auto) 0.7 (0.2-0.9) 10^3/u L Eos # (Auto) 0.0 (0.0-0.8) 10^3/u L Baso # (Auto) 0.0 (0.0-0.1) 10^3/u L Nucleated RBC % (a uto) 0 % Nucleated RBCs # 0.0 /100WBC Sodium 146 H (136-145) mmol/L Potassium 3.0 L (3.5-5.1) mmol/L Chloride 106 (98-107) mmol/L Carbon Dioxide 27 (22-29) mmol/L Anion Gap 16.0 (5-19) BUN 21 (8-23) mg/dL Creatinine 0.9 (0.5-0.9) mg/dL GFR Calculation Not Reportable Glucose 124 H (65-115) mg/dL Calculated Osmolal ity 306 H (285-295) mOsm/k g Calcium 9.9 (8.5-10.5) mg/dL Total Bilirubin 0.7 (0.15-1.2) mg/dL AST 21 (0-32) U/L ALT 19 (0-33) U/L Alkaline Phosphata se 90 (35-105) IU/L Total Protein 7.0 (6.6-8.7) g/dL Albumin 4.3 (3.5-5.2) g/dL Globulin 2.7 (1.3-4.6) g/dL Urine Color Yellow (Yellow) Urine Appearance Sl hazy (CLEAR) Urine pH 5.0 (5-7) Ur Specific Gravit y 1.015 (1.005-1.030) Urine Protein Neg (Negative) Urine Glucose (UA) Norm (Normal) Urine Ketones 1+ H (Negative) Urine Blood Neg (Negative) Urine Nitrate Negative (Negative) Urine Bilirubin Neg (Negative) Urine Urobilinogen Norm (Negative) mg/dL Ur Leukocyte Angeles ase Trace H (Negative) Urine RBC 0-4 H (0-2) /hpf Urine WBC 40-55 H (0-5) /hpf Ur Squamous Epith Cells 0-4 H (0-5) /hpf Amorphous Sediment Not Reportable Urine Bacteria 4+ H (NONE) /hpf Salicylates < 0.3 L (3-10) mg/dL Urine Opiates Scre en (Negative) ng/mL Acetaminophen < 5.0 L (10-30) ug/mL Ur Barbiturates Sc reen (Negative) ng/mL Ur Phencyclidine S crn (Negative) ng/mL Ur Amphetamines Sc reen (Negative) ng/mL U Benzodiazepines Scrn (Negative) ng/mL Urine Cocaine Scre en (Negative) ng/mL U Marijuana (THC) Screen (Negative) ng/mL Ethyl Alcohol < 10 (0-10) mg/dL 09/29/20 Range/Units 14:49 WBC (4.0-10.0) 10^3/ uL RBC (4.1-5.3) 10^6/u L Hgb (11.5-15.3) g/dL Hct (37.0-47.0) % MCV (81-99) fL MCH (28.0-34.0) pg MCHC (30.0-36.0) g/dL RDW (12.1-15.1) % Plt Count (130-400) 10^3/c mm MPV (7.4-10.4) fL Neut % (Auto) % Lymph % (Auto) % Crook % (Auto) % Eos % (Auto) % Baso % (Auto) % Neut # (Auto) (1.8-7.7) 10^3/u L Lymph # (Auto) (0.8-4.8) 10^3/u L Crook # (Auto) (0.2-0.9) 10^3/u L Eos # (Auto) (0.0-0.8) 10^3/u L Baso # (Auto) (0.0-0.1) 10^3/u L Nucleated RBC % (a uto) % Nucleated RBCs # /100WBC Sodium (136-145) mmol/L Potassium (3.5-5.1) mmol/L Chloride (98-107) mmol/L Carbon Dioxide (22-29) mmol/L Anion Gap (5-19) BUN (8-23) mg/dL Creatinine (0.5-0.9) mg/dL GFR Calculation Glucose (65-115) mg/dL Calculated Osmolal ity (285-295) mOsm/k g Calcium (8.5-10.5) mg/dL Total Bilirubin (0.15-1.2) mg/dL AST (0-32) U/L ALT (0-33) U/L Alkaline Phosphata se (35-105) IU/L Total Protein (6.6-8.7) g/dL Albumin (3.5-5.2) g/dL Globulin (1.3-4.6) g/dL Urine Color (Yellow) Urine Appearance (CLEAR) Urine pH (5-7) Ur Specific Gravit y (1.005-1.030) Urine Protein (Negative) Urine Glucose (UA) (Normal) Urine Ketones (Negative) Urine Blood (Negative) Urine Nitrate (Negative) Urine Bilirubin (Negative) Urine Urobilinogen (Negative) mg/dL Ur Leukocyte Angeles ase (Negative) Urine RBC (0-2) /hpf Urine WBC (0-5) /hpf Ur Squamous Epith Cells (0-5) /hpf Amorphous Sediment Urine Bacteria (NONE) /hpf Salicylates (3-10) mg/dL Urine Opiates Scre en Negative (Negative) ng/mL Acetaminophen (10-30) ug/mL Ur Barbiturates Sc reen Negative (Negative) ng/mL Ur Phencyclidine S crn Negative (Negative) ng/mL Ur Amphetamines Sc reen Negative (Negative) ng/mL U Benzodiazepines Scrn Positive H (Negative) ng/mL Urine Cocaine Scre en Negative (Negative) ng/mL U Marijuana (THC) Screen Negative (Negative) ng/mL Ethyl Alcohol (0-10) mg/dL Imaging Data^: CT Head: Radiologist's impression: [address] [place] [address] CT Scan Report Signed Patient: Kim Lin Unit #: [id number] : 1940 Age/Sex: 79 / F ADM Date: 09/29/20 Loc: ER Room/Bed: Attending Dr: Ordering Provider/Ordering MD: Valente Gunderson MD Date of Service: 09/29/20 Procedure(s): CT head wo con* [id number] Accession Number(s): [id number] Report Number: [id number] CT head wo con* [id number] REASON FOR EXAM: ams IV CONTRAST ADMINISTERED: Noncontrast TOTAL EXAM DLP: 1144.[address] scans at [facility] use at least one of these dose optimization techniques: automated exposure control; mA and/or kV adjustment per patient size (includes targeted exams where dose is matched to clinical indication); or iterative reconstruction. FINDINGS: Examination moderately degraded by motion artifact. The examination is unchanged compared to 09/04/2019. No midline shift or other significant mass effect. No findings of intracranial hemorrhage and no extra-axial fluid collection. No focal brain parenchymal abnormality. CT/CT head wo con* [id number] IMPRESSION: The examination is moderately degraded by patient motion artifact. No acute finding is identified. Discharge Plan Discharge Patient Disposition: Admitted As Inpatient Clinical Impression: Acute cystitis Qualifiers: Hematuria presence: without hematuria Qualified Code(s): N30.00 - Acute cystitis without hematuria Altered mental state Qualifiers: Altered mental status type: unspecified Qualified Code(s): R41.82 - Altered mental status, unspecified Condition: Stable Coding Level of Care Code ED Infertility Nurse for g Fwd Exam Comprehensive
[2020-09-29] MEDS: LORazepam 2 mg/mL INJ 1 mL IM (13:05)
[2020-09-29 14:43] LABS: Basophils % 0.3 %; Hematocrit 39.2 % (37.0-47.0); Hemoglobin 12.8 g/dL (11.5-15.3); Lymphocytes # 2.1 10^3/uL (0.8-4.8); Lymphocytes % 15.4 %; Mean Corpuscular HGB Conc 32.7 g/dL (30.0-36.0); Mean Corpuscular Hemoglobin 29.8 pg (28.0-34.0); Mean Corpuscular Volume 91.4 fL (81-99); Mean Platelet Volume 12.1 fL (7.4-10.4); Monocytes # 0.7 10^3/uL (0.2-0.9); Monocytes % 5.3 %; Neutrophils # 10.65 10^3/uL (1.8-7.7); Neutrophils % 78.7 %; Nucleated Red Blood Cells % 0 %; Platelet Count 295 10^3/cmm (130-400); Red Blood Count 4.29 10^6/uL (4.1-5.3); Red Cell Distribution Width 14.7 % (12.1-15.1); White Blood Count 13.5 10^3/uL (4.0-10.0)
[2020-09-29 15:06] LABS: Alanine Aminotransferase 19 U/L (0-33); Albumin Level 4.3 g/dL (3.5-5.2); Alkaline Phosphatase 90 IU/L (35-105); Aspartate Amino Transferase 21 U/L (0-32); Blood Urea Nitrogen 21 mg/dL (8-23); Calcium 9.9 mg/dL (8.5-10.5); Carbon Dioxide 27 mmol/L (22-29); Chloride 106 mmol/L (98-107); Globulin 2.7 g/dL (1.3-4.6); Glucose 124 mg/dL (65-115); Osmolality Calculated 306 mOsm/kg (285-295); Sodium 146 mmol/L (136-145); Total Bilirubin 0.7 mg/dL (0.15-1.2)
[2020-09-29 15:12] LABS: Acetaminophen < 5.0 ug/mL (10-30); Alcohol Level < 10 mg/dL (0-10); Salicylate < 0.3 mg/dL (3-10)
[2020-09-29 15:16] LABS: Add Urine Microscopic? YES; Bilirubin Urine Neg (Negative); Blood Urine Neg (Negative); Glucose Urine UA Norm (Normal); Ketones Urine 1+ (Negative); Leukocyte Esterase Urine Trace (Negative); Nitrate Urine Negative (Negative); Protein Urine Neg (Negative); Specific Gravity, Urine 1.015 (1.005-1.030); Urine Appearance SL Hazy (CLEAR); Urine Color Yellow (Yellow); Urobilinogen Urine Norm (Negative)
[2020-09-29 15:25] LABS: Amphetamines Screen Urine Negative (Negative); Barbiturates Screen Urine Negative (Negative); Benzodiazepines Screen Urine Positive (Negative); Cocaine Screen Urine Negative (Negative); Opiate Screen Urine Negative (Negative); PCP Screen Urine Negative (Negative); THC Screen Urine Negative (Negative)
[2020-09-29 15:30] LABS: Add Urine Culture? Yes; Bacteria Urine 4+ /hpf; RBC Urine 0-4 /hpf (0-2); Squamous Epithelial Cell Urine 0-4 /hpf (0-5); WBC Urine 40-55 /hpf (0-5)
--- NOTE | 2020-09-29 16:20 | PM.HP ---
Providers/Chief Complaint Chief Complaint: MENTAL HEALTH EXAM History of Present Illness Kim Lin is a 79 year old female with a past medical history of depression and anxiety, hypertension, hyperlipidemia, peripheral arterial disease on aspirin and Plavix, GERD, TIA, anxiety, peripheral neuropathy, who presents to [facility] due to altered mental status Currently patient was examined in the emergency room, she is alert to person, not to place, not to time, she does know the president is Gurdeep, but is telling me that there is spiders crawling on the guillen, it is difficult to get a straight answer from her, she does follows command such moving both arms, wiggling her toes, but at other times she is fairly confused. She has no particular complaints except that she needs to get up and use the bathroom, she is quite enthralled about the spiders on the guillen, also quite upset that nobody is answering her call light as she needs to use the bathroom Most of the history was obtained from her daughter, who tells me that patient has a history of anxiety and depression, she has significant bereavement around the passing away of her , which is roughly 4 years ago, the anniversary is approaching in the next week or so, she is on multiple depression medications, anxiety medications, Ambien to help her sleep. She had a hospital admission few years ago after her , patient psych admission for bereavement and anxiety and depression. Patient daughter tells me that roughly 2 weeks ago she started to act confused, strange, was seeing and hearing things that were not there. She was found by the police in her car, she was driving not knowing where she was going, she was acting confused, they thought she was intoxicated, however she was not. Her daughter took her interval for the last 2 weeks, she did have a few days in which she was very confused, acting strange, but was redirectable. Initially she returned to her normal self, she was able [facility] [place] [facility]. However this morning, she was found by neighbors wandering the halls, knocking on neighbors doors, was confused, she was looking for her , she was looking for her 2 young daughters (who are grown now) so the department of senior services and the police were called, and patient was brought to the emergency room. Review of Systems Const: Denies: fever(s) or chills Card: Denies: chest pain Resp: Denies: dyspnea GI: Denies: abdominal pain Musc: Denies: neck pain or back pain Skin/Breast: Denies: rash Neuro: Denies: headache(s) Psych: Denies: anxiety or depression Medications/Allergies Home Medications Medication Instructions Recorded Confirmed Last Taken Type Trintellix 10 mg PO DAILY 01/01/20 09/29/20 Unknown History alprazolam 0.5 mg PO BID PRN 01/01/20 09/29/20 Unknown History aspirin 325 mg PO DAILY 01/01/20 09/29/20 Unknown History atorvastatin 40 mg PO DAILY 01/01/20 09/29/20 Unknown History clopidogrel 75 mg PO DAILY 01/01/20 09/29/20 Unknown History diltiazem HCl 240 mg PO DAILY 01/01/20 09/29/20 Unknown History diphenhydramine HCl 25 - 50 mg PO BEDTIME PRN 01/01/20 09/29/20 Unknown History gabapentin 1,200 mg PO TID 01/01/20 09/29/20 Unknown History hydrochlorothiazide 12.5 mg PO DAILY 01/01/20 09/29/20 Unknown History ibuprofen 800 mg PO Q8H PRN 01/01/20 09/29/20 Unknown History losartan 25 mg PO DAILY 01/01/20 09/29/20 Unknown History omeprazole magnesium [Prilosec OTC] 40 mg PO DAILY 01/01/20 09/29/20 Unknown History ondansetron HCl [Zofran] 4 mg PO Q8H PRN 01/01/20 09/29/20 Unknown History tizanidine [Zanaflex] 2 mg PO TID PRN 01/01/20 09/29/20 Unknown History tramadol [Ultram] 50 - 100 mg PO TID PRN 01/01/20 09/29/20 Unknown History zolpidem 10 mg PO BEDTIME PRN 01/01/20 09/29/20 Unknown History metoprolol tartrate 25 mg tablet See Rx Instructions .ROUTE 04/20/20 09/29/20 Unknown Rx .COMPLEX #30 tab vilazodone [Viibryd] 40 mg PO DAILY 09/29/20 09/29/20 Unknown History Allergies Allergy/AdvReac Type Severity Reaction Status Date / Time carvedilol [From Coreg] Allergy Unknown Verified 09/29/20 12:18 PFSH Acute PFSH: Medical History (Updated 09/29/20 @ 16:30 by Moe Vines MD) Anxiety Chronic back pain Depression GERD (gastroesophageal reflux disease) Hyperlipidemia Hypertension Peripheral neuropathy Peripheral vascular disease Skin cancer Surgical History H/O: hysterectomy Hx of cholecystectomy Hx of tonsillectomy Family History (Updated 09/29/20 @ 16:28 by Moe Vines MD) Other Cancer Hypertension Social History (Updated 09/29/20 @ 16:28 by Moe Vines MD) Smoking and tobacco status: never smoked Alcohol intake: never Substance/Drug Use: never Vitals/I&O/Wt Last Vital Signs Temp 97.6 F 09/29/20 12:13 Pulse 113 H 09/29/20 12:13 Resp 18 09/29/20 12:13 BP 182/88 09/29/20 12:13 Pulse Ox 96 09/29/20 12:13 Weight last 48 hrs Weight 90.718 kg Physical Exam Const: COMMON NORMALS: no acute distress GENERAL APPEARANCE: cooperative ORIENTATION/CONSCIOUSNESS: Yes awake, Yes oriented to person and Yes confused; not oriented to place and not oriented to time HENMT: COMMON NORMALS: normocephalic HEAD & SCALP: normocephalic Eye: COMMON NORMALS: Equal, round and reactive pupils present, EOMs intact bilaterally and no papilledema GENERAL EYE: appearance normal, both eyes and all related structures PUPIL: Yes Equal, round and reactive pupils present DIRECT OPHTHALMOSCOPY: Yes no papilledema Neck/C-Spine: COMMON NORMALS: full ROM, no lymphadenopathy, no JVD and Thyroid normal THYROID: Thyroid normal Lymph: LYMPHATIC: no lymphadenopathy noted Resp: COMMON NORMALS: normal respiratory effort, No retractions, No use of accessory muscles and clear to auscultation bilaterally AUSCULTATION: clear to auscultation bilaterally Cardio: COMMON NORMALS: no JVD, regular rate, regular rhythm, S1 normal heart sound present, S2 normal heart sound present, No gallops present (Cardio), No clicks present (Cardio) and No murmurs present (Cardio) RATE: regular rate RHYTHM: regular rhythm HEART SOUNDS: S1 normal heart sound present and S2 normal heart sound present GI: COMMON NORMALS: Normal to inspection, nondistended, normoactive bowel sounds present, Soft to palpation, non-tender and No hepatosplenomegaly present PALPATION: Yes Soft to palpation and Yes No hepatosplenomegaly present Extremity: COMMON NORMALS: normal to inspection, full ROM and no pedal edema Neuro: COMMON NORMALS: CN's II-XII intact bilaterally, moves all extremities and no focal motor deficits SPEECH: speech normal MOTOR EXAM: 5/5 motor strength present throughout OTHER: It was difficult to do a full neurologic exam on the patient, as it was difficult for her at times to follow directions Psych: APPEARANCE: Yes unkempt ATTITUDE: Yes paranoid and Yes bizarre ACTIVITY/MOTOR BEHAVIOR: Yes fidgeting SPEECH: Yes normal speech MOOD & AFFECT: Yes elevated mood THOUGHT PROCESS: incoherent and disorganized THOUGHT CONTENT: Yes delusions and Yes Hallucination(s) present ATTENTION/CONCENTRATION: Yes attention grossly impaired and Yes concentration grossly impaired MEMORY/COGNITION: Yes memory grossly impaired and Yes cognition grossly impaired Data : 09/29/20 14:15 09/29/20 14:15 A&P Assessment and plan (1) Altered mental status: -Etiology unclear at this point -CT of the head was negative for acute stroke -UA has mixed findings for UTI -No chest x-ray ordered -No troponins ordered, no BNP, no EKG -She is on room air, blood pressure 182/88, pulse 113, temperature 97.6 Plan: -Admit to general medical floors -Neurochecks, seizure precautions -Zyprexa for anxiety -Telemetry monitoring -Troponin, EKG, BMP, chest x-ray -Continue Rocephin for possible UTI -We will order carotid artery ultrasound, cardiac echo -Hold alprazolam, gabapentin, Zanaflex, Trintellix, Viibryd, Ambien -Continue home medications, aspirin, statin -Full code -Lovenox for DVT prophylaxis -Will likely require mcc placement -We will consider consulting neuropsych based on clinical progress Status: Acute (2) GERD (gastroesophageal reflux disease): Status: Acute (3) Anxiety: Status: Acute (4) Peripheral vascular disease: Status: Acute (5) Hyperlipidemia: Status: Acute (6) Hypertension: -Add Norvasc for hypertension Status: Acute (7) Insomnia: Status: Acute (8) Chronic back pain: Status: Acute Attestations Medical Necessity Statement*: Patient requires hospitalization, inpatient, greater than 2 midnights, for altered mental status Coding Level of Care Code Acute Dehydrogenation Converter Operator for [facility] Fwd Diagnoses Altered mental status R41.82 GERD (gastroesophageal reflux disease) K21.9 Anxiety F41.9 Peripheral vascular disease I73.9 Hyperlipidemia E78.5 Hypertension I10 Insomnia G47.00 Chronic back pain M54.9; G89.29
[2020-09-29] MEDS: LORazepam 2 mg/mL INJ 1 mL 1 MG IVP (16:25)
[2020-09-29] MEDS: haloperidol inj 5 mg/mL INJ 1 mL 10 MG IVP (16:25)
--- NOTE | 2020-09-29 16:50 | PC.NURSE ---
pt anxious and does not wish to sit in chair on sit/lay on bed. pt seated herself on the floor and laid down on the floor. pt refused to move to bed or chair. pt refused assistance to the bed or chair. Mattress removed from the pt bed and placed on the floor for pt comfort and safety. pt moved onto mattress without assistance. Primary nurse notified of this change.
--- NOTE | 2020-09-29 16:56 | PC.NURSE ---
Patient is convinced there is spiders in her room and on the hospital bed frame. Patient refuses to stay in ED room, and get on the bed. Patient only wants to sit in plastic chair in the room. Patient has tried numerous times to leave room, and has been stopped by myself by standing in doorway, patient has resorted to trying to shove myself out of the way. Patient then agrees to sit in chair in room. Patient then gets up and lays down on the floor. Patient is then asked to get up off the floor, and refuses. Patient is satisfied by laying on hospital bed mattress on the floor. Patient eventually settles down and gets comfortable on mattress, and is able to take a nap.
[2020-09-29] MEDS: cefTRIAXone 1,000 MG in sodium chloride 0.9% (plus) 50 ML 100 MG IV (16:59)
[2020-09-29] MEDS: LORazepam 2 mg/mL INJ 1 mL IVP ×2 (17:58→19:19)
[2020-09-29 19:16] VITALS: BP 159/78; PULSE 118; RESP 18; TEMP 36.5; O2SAT 96
--- NOTE | 2020-09-29 19:52 | XR_ITS ---
WS: [id number] XR chest 1V portable [id number] REASON FOR EXAM: ams FINDINGS: Most recent examination 01/01/2020. The heart and mediastinum are within normal limits for age. There is patchy lung opacity in the left lower lung field obscuring the cardiac margin and a portion of the hemidiaphragm. Bilateral shoulder rotator cuff arthropathy. Mild degenerative spondylosis in the lower thoracic spin e. XR/XR chest 1V portable [id number] IMPRESSION: Left lung changes as above of unknown chronicity but very likely acute subacute pneumonitis.
[2020-09-29] MEDS: metoprolol tartrate 25 mg Tablet 12.5 MG PO (20:24)
[2020-09-29] MEDS: enoxaparin 40 mg/0.4 mL Syringe SUBCUT (20:24)
[2020-09-29] MEDS: amlodipine 10 mg Tablet PO (20:24)
[2020-09-29] MEDS: potassium chloride ER 20 mEq Tablet 40 MEQ PO (20:25)
[2020-09-29] MEDS: famotidine 20 mg Tablet PO (20:25)
[2020-09-29] MEDS: sodium chloride 0.45% 1,000 ML 75 ML IV (20:36)
[2020-09-29 22:00] VITALS: PULSE 102
[2020-09-29 22:47] LABS: NT Pro B Type Natriuretic Pept 272 pg/mL (0-450); Procalcitonin 0.07 ng/mL (0-0.5)
[2020-09-29 23:12] LABS: Estmated Average Glucose 114; Hemoglobin A1C 5.6 % (4.0-6.0)
[2020-09-30] VITALS (14 sets, daily range): BP systolic 159–187; BP diastolic 70–94; PULSE 76–109; RESP 16–22; TEMP 36.6–37.2; O2SAT 93–98
[2020-09-30 05:31] LABS: Chol HDL Ratio 5.16 mg/dL (0.0-4.40); Cholesterol 227 mg/dL (0-200); HDL Cholesterol 44 mg/dL (60-100); LDL Cholesterol Calculated 140 mg/dL (50-129); LDL HDL Ratio 3.18 RATIO (0.00-3.22); Triglycerides 214 mg/dL (0-150)
[2020-09-30 05:38] LABS: Thyroid Stimulating Hormone 1.02 uIU/mL (0.27-4.20)
[2020-09-30] MEDS: acetaminophen 325 mg Tablet 650 MG PO ×3 (06:25→22:01)
[2020-09-30] MEDS: famotidine 20 mg Tablet PO ×2 (08:49→17:58)
[2020-09-30] MEDS: chlorthalidone 25 mg Tablet PO (08:49)
[2020-09-30] MEDS: amlodipine 10 mg Tablet PO (08:49)
[2020-09-30] MEDS: atorvastatin 40 mg Tablet PO (08:49)
[2020-09-30] MEDS: pantoprazole DR 40 mg Tablet PO (08:49)
[2020-09-30] MEDS: clopidogrel 75 mg Tablet PO (08:50)
[2020-09-30] MEDS: metoprolol tartrate 25 mg Tablet PO ×2 (08:50→19:39)
[2020-09-30] MEDS: losartan 50 mg Tablet 25 MG PO (08:50)
[2020-09-30] MEDS: dilTIAZem ER (24HR) 240 mg Capsule PO (08:50)
[2020-09-30] MEDS: aspirin 325 mg Tablet 81 MG PO (08:51)
[2020-09-30] MEDS: azithromycin 500 MG in sodium chloride 0.9% 250 ML 250 MG IV (08:51)
[2020-09-30] MEDS: sodium chloride 0.45% 1,000 ML 75 ML IV (08:54)
--- NOTE | 2020-09-30 11:08 | P.PN_ITS ---
Subjective Subjective: Interval history: This morning patient was examined, she sitting up in bed awake restless, she is alert to person, place, time, she tells me that she really wants to see her daughters, she has no particular complaints, she does not know how she ended up in the hospital, denies any chest pain, denies any shortness of breath, no abdominal pain, no pelvic pain, no flank pain Vitals/I&O/Wt Last Vital Signs Temp 99.0 F 09/30/20 07:34 Pulse 76 09/30/20 08:56 Resp 16 09/30/20 07:34 BP 187/89 09/30/20 08:50 Pulse Ox 94 09/30/20 08:56 09/29/20 09/30/20 09/30/20 22:59 06:59 14:59 Intake Total 1042.5 / 1042.5 Output Total 450 / 450 Balance -450 / -450 1042.5 / 1042.5 Weight last 48 hrs Weight 90.718 kg Physical Exam Const: COMMON NORMALS: no acute distress and patient oriented x3 ORIENTATION/CONSCIOUSNESS: Yes oriented to person, Yes oriented to place and Yes oriented to time HENMT: COMMON NORMALS: normocephalic HEAD & SCALP: normocephalic Neck/C-Spine: COMMON NORMALS: no JVD Resp: COMMON NORMALS: normal respiratory effort, No retractions, No use of accessory muscles and clear to auscultation bilaterally AUSCULTATION: clear to auscultation bilaterally Cardio: COMMON NORMALS: no JVD, regular rate, regular rhythm, S1 normal heart sound present and S2 normal heart sound present RATE: regular rate RHYTHM: regular rhythm HEART SOUNDS: S1 normal heart sound present and S2 normal he art sound present GI: COMMON NORMALS: Normal to inspection, nondistended, normoactive bowel sounds present, Soft to palpation, non-tender, No hepatosplenomegaly present, no masses and no bruits PALPATION: Yes Soft to palpation and Yes No hepatosplenomegaly present Extremity: COMMON NORMALS: capillary refill normal, no clubbing, cyanosis or edema, no calf tenderness and no pedal edema Neuro: COMMON NORMALS: patient oriented x3 SENSORIUM/ORIENTATION: Yes alert, Yes oriented to person, Yes oriented to place and Yes oriented to time SPEECH: speech normal MOTOR EXAM: 5/5 motor strength present throughout Psych: COMMON NORMALS: mental status grossly normal Data : 09/29/20 14:15 09/29/20 14:15 Micro: Microbiology 09/30/20 10:13 Blood Culture - Preliminary Blood SPECIMEN COLLECTED 09/30/20 04:35 Blood Culture - Preliminary Blood SPECIMEN COLLECTED A&P Assessment and plan (1) Altered mental status: -Etiology multifactorial, UTI, left lower lobe pneumonia, bereavement, anxiety depression -CT of the head was negative for acute stroke -UA has mixed findings for UTI -Chest x-ray shows possible left lobe infiltrate, concerning for pneumonia -I had ordered troponins, BNP, EKG yesterday they have not been done -On room air, blood pressure 187/89, pulse 76, respiratory rate 16, temp 99 Plan: -Admit to general medical floors -Neurochecks, seizure precautions -Zyprexa for anxiety -Telemetry monitoring -Troponin, EKG, BNP, chest x-ray -Rocephin and azithromycin for UTI and pneumonia -We will order carotid artery ultrasound, cardiac echo -Hold alprazolam, gabapentin, Zanaflex, Trintellix, Ambien -Start Prozac 20 mg -Continue home medications, aspirin, statin -For hypertension, increased metoprolol to 25 twice daily, add chlorthalidone 25 mg daily, Norvasc 10 mg, losartan 50 mg -Full code -Lovenox for DVT prophylaxis -Will likely require detention placement -Consulted Dr. Gonzales Status: Acute (2) GERD (gastroesophageal reflux disease): Status: Acute (3) Anxiety: Status: Acute (4) Peripheral vascular disease: Status: Acute (5) Hyperlipidemia: Status: Acute (6) Hypertension: -Add Norvasc for hypertension Status: Acute (7) Insomnia: Status: Acute (8) Chronic back pain: Status: Acute Attestations Medical Necessity Statement*: Patient requires hospitalization for altered mental status, concerning for UTI, pneumonia, bereavement Coding Level of Care Code Acute Detective Supervisor for [facility] Fwd Exam Comprehensive Diagnoses Altered mental status R41.82 GERD (gastroesophageal reflux disease) K21.9 Anxiety F41.9 Peripheral vascular disease I73.9 Hyperlipidemia E78.5 Hypertension I10 Insomnia G47.00 Chronic back pain M54.9; G89.29
--- NOTE | 2020-09-30 11:24 | ECG_ITS ---
[facility] Test Date: 2020-09-30 Pat Name: Kim Lin Department: Room: 257 Gender: Female Store Administrative Assistant: : 1940 Requested By: Moe Vines Order Number: [id number] Ninfa MD: Pancho Garcia M.D. Measurements Intervals [place] Rate: 92 P: -4 NC: 207 QRS: 59 QRSD: 98 T: -46 QT: 347 QTc: 430 Interpretive Statements SINUS RHYTHM POSSIBLE LEFT ATRIAL ENLARGEMENT [-0.1mV P WAVE IN V1/V2] INCOMPLETE RIGHT BUNDLE BRANCH BLOCK [90+ ms QRS DURATION, TERMINAL R IN V1/V2, 40+ ms S IN I/aVL/V4/V5/V6] NONSPECIFIC ST & T-WAVE ABNORMALITY Compared to ECG 01/01/2020 09:55:40 First degree AV block no longer present T-wave abnormality still present Electronically Signed On 10-01-2020 22:21:19 UNDERWATER HUNTER TRAPPER by Pancho Garcia M.D. [id number]
[2020-09-30 12:21] LABS: Troponin(5th) Baseline 22 ng/L (0-10)
[2020-09-30 14:45] LABS: Troponin 5 2HR 20.13 ng/L (0-10)
[2020-09-30 14:46] LABS: Troponin 5 2HR Delta -1.87 ABS# (0-10)
--- NOTE | 2020-09-30 15:24 | ECG_ITS ---
[facility] Test Date: 2020-09-30 Pat Name: Kim Lin Department: Room: 257 Gender: Female Stunt Performer: : 1940 Requested By: Moe Vines Order Number: [id number] Ninfa MD: Pancho Garcia M.D. Measurements Intervals [place] Rate: 95 P: 69 VA: 217 QRS: 4 QRSD: 117 T: 90 QT: 395 QTc: 497 Interpretive Statements SINUS RHYTHM WITH FIRST DEGREE AV BLOCK INCOMPLETE RIGHT BUNDLE BRANCH BLOCK [90+ ms QRS DURATION, TERMINAL R IN V1/V2, 40+ ms S IN I/aVL/V4/V5/V6] POSSIBLE ANTERIOR MYOCARDIAL INFARCTION [30 ms Q WAVE IN V3/V4, OR R < 0.2 mV IN V4], PROBABLY OLD INFERIOR MYOCARDIAL INFARCTION [40+ ms Q WAVE AND/OR ST/T ABNORMALITY IN II/aVF], PROBABLY OLD Compared to ECG 09/30/2020 13:16:08 First degree AV block now present Myocardial infarct finding now present T-wave abnormality no longer present Electronically Signed On 10-01-2020 22:51:41 CABLE CUTTER AND SWAGER by Pancho Garcia M.D. [id number]
[2020-09-30] MEDS: cefTRIAXone 1,000 MG in sodium chloride 0.9% (plus) 50 ML 100 MG IV (16:00)
[2020-09-30] MEDS: ondansetron 4 MG Tablet PO (16:01)
[2020-09-30] MEDS: fluoxetine 20 mg Capsule PO (16:01)
--- NOTE | 2020-09-30 17:24 | ECG_ITS ---
[facility] Test Date: 2020-09-30 Pat Name: Kim Lin Department: Room: 257 Gender: Female Dial Screw Assembler: : 1940 Requested By: Moe Vines Order Number: [id number] Ninfa MD: Pancho Garcia M.D. Measurements Intervals [place] Rate: 95 P: 67 NC: 215 QRS: 5 QRSD: 118 T: 91 QT: 395 QTc: 498 Interpretive Statements SINUS RHYTHM WITH FIRST DEGREE AV BLOCK POSSIBLE LEFT ATRIAL ENLARGEMENT [-0.1mV P WAVE IN V1/V2] INCOMPLETE RIGHT BUNDLE BRANCH BLOCK [90+ ms QRS DURATION, TERMINAL R IN V1/V2, 40+ ms S IN I/aVL/V4/V5/V6] POSSIBLE ANTERIOR MYOCARDIAL INFARCTION [30 ms Q WAVE IN V3/V4, OR R < 0.2 mV IN V4], PROBABLY OLD INFERIOR MYOCARDIAL INFARCTION [40+ ms Q WAVE AND/OR ST/T ABNORMALITY IN II/aVF], PROBABLY OLD WARNING: DATA QUALITY MAY AFFECT INTERPRETATION Compared to ECG 09/30/2020 13:16:08 First degree AV block now present Myocardial infarct finding now present T-wave abnormality no longer present Electronically Signed On 10-01-2020 22:51:28 TOWER SUPERVISOR by Pancho Garcia M.D. [id number]
[2020-09-30 18:14] LABS: Troponin 5 6HR 19.73 ng/L (0-10)
[2020-09-30 18:29] LABS: Troponin 5 6HR Delta -2.27 ng/L (0-12)
[2020-09-30] MEDS: enoxaparin 40 mg/0.4 mL Syringe SUBCUT (19:39)
--- NOTE | 2020-09-30 19:52 | USCV_ITS ---
Kim Lin Age: 79 Gender: F : 1940 Exam Date: 09/30/2020 06:21 Ordering Phys: Moe Vines MD Technologist: Tammy Cain Exam Location: [facility] [place] Indication: AMS BP: 171 / 80 HR: 105 Rhythm: Sinus Technical Quality: Adequate MEASUREMENTS (Male / Female) Normal Values 2D ECHO LV Diastolic Diameter PLAX 3.2 cm 4.2 - 5.9 / 3.9 - 5.3 cm LV Systolic Diameter PLAX 2.6 cm LV Chamber Size 2.6 cm IVS Diastolic Thickness 1.3 cm 0.6 - 1.0 / 0.6 - 0.9 cm IVS Systolic Thickness 1.7 cm LVPW Diastolic Thickness 1.8 cm 0.6 - 1.0 / 0.6 - 0.9 cm LVPW Systolic Thickness 1.8 cm RV Chamber Size 2.3 cm LVOT Diameter 2.0 cm LV Ejection Fraction 2D Teich 39.5 % LV Ejection Fraction MOD 2C 41.6 % LV Ejection Fraction 2C AL 39.2 % LA Diameter 2.8 cm LA Width 2.3 cm LA Height 2.7 cm Aorta at Sinotubular Diameter 2.9 cm M-MODE LV Diastolic Diameter MM 3.2 cm 4.2 - 5.9 / 3.9 - 5.3 cm LV Systolic Diameter MM 1.5 cm LV Ejection Fraction MM Teich 83.9 % IVS Diastolic Thickness MM 0.7 cm 0.6 - 1.0 / 0.6 - 0.9 cm IVS Systolic Thickness MM 1.3 cm LVPW Diastolic Thickness MM 0.7 cm 0.6 - 1.0 / 0.6 - 0.9 cm LVPW Systolic Thickness MM 0.9 cm Aortic Annulus Diameter 3.2 cm LA Ao Ratio MM 0.9 MV E Point Septal Separation 0.3 cm DOPPLER AV Peak Velocity 114.0 cm/s LVOT Peak Velocity 106.0 cm/s AV Area Cont Eq vti 2.6 cm squared AV Area Cont Eq pk 2.9 cm squared MV Area PHT 8.5 cm squared Mitral E to A Ratio 1.9 MV E' Velocity 65.5 cm/s Mitral E to MV E' Ratio 6.9 Mitral E to LV E' Lateral Ratio 7.2 Mitral E to LV E' Septal Ratio 6.7 TR Peak Velocity 249.0 cm/s TR Peak Gradient 24.8 mmHg TV Peak E Velocity 86.0 cm/s Right Atrial Pressure 3.0 mmHg Pulmonary Artery Systolic Pressu 27.8 mmHg PV Peak Velocity 111.0 cm/s RV Acceleration Time 0.1 s RV Ejection Time 0.3 s RV AcT/ET 0.2 FINDINGS Left Ventricle Normal left ventricular size and systolic function, EF 56 %. Mild left ventricular hypertrophy. Right Ventricle The right ventricle is normal in size and function. Right Atrium The right atrium is normal in size. Left Atrium The left atrium is normal in size. Mitral Valve Mild mitral annular calcification. Aortic Valve Trace aortic valve regurgitation. Tricuspid Valve Trace tricuspid valve regurgitation. Pulmonic Valve No gross abnormalities noted Pericardium Normal pericardium without effusion. Aorta Aortic root at the level of the sinuses measured 3.9 cm CONCLUSIONS Normal left ventricular size and systolic function, EF 56 %. Mild left ventricular hypertrophy. No segmental wall motion of normalities noted Trace aortic valve regurgitation. Mild mitral annular calcification. Trace tricuspid valve regurgitation. Aortic root at the level of the sinuses measured 3.9 cm in diameter There is no pericardial effusion. There are no intracardiac masses. Compared to the study from 05/21/2015, there may not be a significant change Dr Pancho Garcia MD FAC (Electronically Signed) Final Date: 30 September 2020 09:16 S
--- NOTE | 2020-09-30 19:52 | USCV_ITS ---
Kim Lin Age: 79 Gender: F : 1940 Exam Date: 09/30/2020 06:34 Ordering Phys: Moe Vines MD Technologist: Tammy Cain Exam Location: [facility] [place] Indication: AMS Risk Factors: Previous Vascular Surgery: Right Brachial BP: / Left Brachial BP: / Right Left Velocity (cm/s) Spectral Plaque Velocity (cm/s) Spectral Plaque Syst/Diast Broadening Syst/Diast Broadening 65.10/ 12.10 Prox CCA 42.00 / 13.60 63.90/ 13.40 Mid CCA 55.10 / 11.20 68.10/ 9.20 Distal CCA 49.10 / 8.90 / None Prox ICA 26.00 / 5.90 41.20/ 11.80 Mid ICA 43.20 / 11.20 36.10/ 10.70 Distal ICA 51.50 / 10.70 71.40 ECA 84.00 0.64 ICA/CCA 0.94 Antegrade Vertebral 30.80/ 3.00 cm/s / cm/s Tri Subclavian Tri 45.00 124.3 0 FINDINGS Mild to moderate plaques of the right bifurcation and ICA. Mild to moderate plaques of the left bifurcation and ICA. Intimal thickening in the common carotid arteries bilaterally Antegrade flow in the vertebral artery on the right side. Normal Doppler flow velocities in the external carotid arteries bilaterally The left vertebral artery was not visualized CONCLUSIONS Mild to moderate plaques of the right bifurcation and internal carotid artery. Minimal plaques at the left bifurcation and internal carotid artery. Intimal thickening in the common carotid arteries bilaterally. The left vertebral artery could not be visualized. The velocity at the proximal right internal carotid artery was not measured No previous studies are available for comparison Consider CTA, to better evaluate the vertebral arteries, if clinically indicated Dr Pancho Garcia MD [facility] (Electronically Signed) Final Date: 01 October 2020 13:49 S
[2020-10-01] VITALS (9 sets, daily range): BP systolic 148–185; BP diastolic 78–97; PULSE 85–106; RESP 16–20; TEMP 36.6–37.1; O2SAT 94–96
[2020-10-01] MEDS: OLANZapine 10 mg VIAL 5 MG IM (00:32)
[2020-10-01] MEDS: sodium chloride 0.45% 1,000 ML 75 ML IV (00:33)
[2020-10-01 06:02] LABS: Basophils % 0.4 %; Eosinophils # 0.1 10^3/uL (0.0-0.8); Eosinophils % 1.3 %; Lymphocytes % 29.2 %; Mean Corpuscular HGB Conc 32.5 g/dL (30.0-36.0); Mean Corpuscular Volume 92.4 fL (81-99); Mean Platelet Volume 12.5 fL (7.4-10.4); Monocytes # 1.2 10^3/uL (0.2-0.9); Monocytes % 12.1 %; Neutrophils # 5.78 10^3/uL (1.8-7.7); Neutrophils % 56.6 %; Nucleated Red Blood Cells % 0 %; Platelet Count 286 10^3/cmm (130-400); Red Blood Count 4.33 10^6/uL (4.1-5.3); Red Cell Distribution Width 14.6 % (12.1-15.1); White Blood Count 10.2 10^3/uL (4.0-10.0)
[2020-10-01 06:30] LABS: Alanine Aminotransferase 21 U/L (0-33); Albumin Level 4.3 g/dL (3.5-5.2); Alkaline Phosphatase 89 IU/L (35-105); Anion Gap 16.7 (5-19); Aspartate Amino Transferase 26 U/L (0-32); Blood Urea Nitrogen 10 mg/dL (8-23); Carbon Dioxide 29 mmol/L (22-29); Chloride 98 mmol/L (98-107); Globulin 2.7 g/dL (1.3-4.6); Glucose 119 mg/dL (65-115); Magnesium 1.8 mg/dL (1.7-2.3); Osmolality Calculated 292 mOsm/kg (285-295); Phosphorus 2.4 mg/dL (2.5-4.5); Sodium 141 mmol/L (136-145); Total Bilirubin 0.5 mg/dL (0.15-1.2)
[2020-10-01 06:50] LABS: Potassium 2.7 mmol/L (3.5-5.1)
[2020-10-01] MEDS: chlorthalidone 25 mg Tablet PO (08:32)
[2020-10-01] MEDS: fluoxetine 20 mg Capsule PO (08:32)
[2020-10-01] MEDS: dilTIAZem ER (24HR) 240 mg Capsule PO (08:32)
[2020-10-01] MEDS: atorvastatin 40 mg Tablet PO (08:33)
[2020-10-01] MEDS: losartan 50 mg Tablet 25 MG PO (08:33)
[2020-10-01] MEDS: famotidine 20 mg Tablet PO (08:33)
[2020-10-01] MEDS: potassium chloride ER 20 mEq Tablet 80 MEQ PO (08:33)
[2020-10-01] MEDS: metoprolol tartrate 25 mg Tablet PO (08:33)
[2020-10-01] MEDS: clopidogrel 75 mg Tablet PO (08:33)
[2020-10-01] MEDS: amlodipine 10 mg Tablet PO (08:33)
[2020-10-01] MEDS: azithromycin 500 MG in sodium chloride 0.9% 250 ML 250 MG IV (08:34)
[2020-10-01] MEDS: aspirin 325 mg Tablet 81 MG PO (08:34)
[2020-10-01] MEDS: pantoprazole DR 40 mg Tablet PO (08:34)
[2020-10-01] MEDS: cloNIDine 0.1 mg Tablet PO (09:14)
[2020-10-01] MEDS: spironolactone 25 mg Tablet PO (09:14)
--- NOTE | 2020-10-01 11:34 | PM.PN ---
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, [place], but was always fearful of spiders Vitals/I&O/Wt Last Vital Signs Temp 98.1 F 10/01/20 08:00 Pulse 104 H 10/01/20 08:00 Resp 16 10/01/20 08:00 BP 180/87 10/01/20 09:14 Pulse Ox 95 10/01/20 08:00 09/30/20 10/01/20 10/01/20 22:59 06:59 14:59 Intake Total 1000 / 2532.5 240 / 2772.5 190 / 190 Output Total 200 / 200 Balance 1000 / 2532.5 40 / 2572.5 190 / 190 Weight last 48 hrs Weight 90.718 kg Physical Exam Const: COMMON NORMALS: no acute distress and patient oriented x3 HENMT: COMMON NORMALS: normocephalic HEAD & SCALP: normocephalic Neck/C-Spine: COMMON NORMALS: no JVD Resp: COMMON NORMALS: normal respiratory effort, No retractions, No use of accessory muscles and clear to auscultation bilaterally AUSCULTATION: clear to auscultation bilaterally Cardio: COMMON NORMALS: no JVD, regular rate, regular rhythm, S1 normal heart sound present and S2 normal heart sound present RATE: regular rate RHYTHM: regular rhythm HEART SOUNDS: S1 normal heart sound present and S2 normal heart sound present GI: COMMON NORMALS: Normal to inspection, nondistended, normoactive bowel sounds present, Soft to palpation, non-tender, No hepatosplenomegaly present, no masses and no bruits PALPATION: Yes Soft to palpation and Yes No hepatosplenomegaly present Extremity: COMMON NORMALS: capillary refill normal, no clubbing, cyanosis or edema, no calf tenderness and no pedal edema Neuro: COMMON NORMALS: patient oriented x3 Psych: COMMON NORMALS: mental status grossly normal Data : 10/01/20 05:00 10/01/20 05:00 Micro: Microbiology 09/30/20 10:13 Blood Culture - Preliminary Blood NEGATIVE TO DATE 09/29/20 14:49 Urine Culture - Preliminary Urine,Clean Catch Strep species, alpha hemolytic 09/30/20 04:35 Blood Culture - Preliminary Blood NEGATIVE TO DATE A&P Assessment and plan (1) Altered mental status: -Etiology multifactorial, UTI, left lower lobe pneumonia, bereavement, anxiety depression -CT of the head was negative for acute stroke -UA has mixed findings for UTI -Chest x-ray shows possible left lobe infiltrate, concerning for pneumonia -On room air, blood pressure 187/89, pulse 76, respiratory rate 16, temp 99 Plan: -Admit to general medical floors -Neurochecks, seizure precautions -Zyprexa for anxiety -Telemetry monitoring -Rocephin and azithromycin for UTI and pneumonia -Carotid artery ultrasound pending -Continue alprazolam, reduce gabapentin dose, continue Zanaflex, continue Trintellix on discharge, -Start Prozac 20 mg -Continue home medications, aspirin, statin -For hypertension, increased metoprolol to 25 twice daily, add chlorthalidone 25 mg daily, Norvasc 10 mg, losartan 50 mg, spironolactone 25 mg twice daily, clonidine 0.1 twice daily -Full code -Lovenox for DVT prophylaxis -Consulted angel Ocampo to go home -Plan for today, blood pressure control, likely discharge later on this afternoon Status: Acute (2) GERD (gastroesophageal reflux disease): Status: Acute (3) Anxiety: Status: Acute (4) Peripheral vascular disease: Status: Acute (5) Hyperlipidemia: Status: Acute (6) Hypertension: -Add Norvasc for hypertension Status: Acute (7) Insomnia: Status: Acute (8) Chronic back pain: Status: Acute Attestations Medical Necessity Statement*: Patient requires hospitalization for altered mental status likely sec to UTI, pneumonia, anxiety, now with hypertensive urgency, likely discharge today Coding Level of Care Code Acute Quality Process Lead for [facility] Fwd Diagnoses Altered mental status R41.82 GERD (gastroesophageal reflux disease) K21.9 Anxiety F41.9 Peripheral vascular disease I73.9 Hyperlipidemia E78.5 Hypertension I10 Insomnia G47.00 Chronic back pain M54.9; G89.29
--- NOTE | 2020-10-01 11:55 | P.DS_ITS ---
Discharge Providers Date of Admission: 09/29/20 16:10 Date of Discharge: October 01, 2020 Attending Provider at Admission: Moe Vines MD Attending Provider at Discharge: Moe Vines MD Diagnoses at Discharge Discharge Diagnosis (1) Altered mental status: Status: Acute (2) GERD (gastroesophageal reflux disease): Status: Acute (3) Anxiety: Status: Acute (4) Peripheral vascular disease: Status: Acute (5) Hyperlipidemia: Status: Acute (6) Hypertension: Status: Acute (7) Insomnia: Status: Acute (8) Chronic back pain: Status: Acute Reason for Visit Reason for Visit: MENTAL HEALTH EXAM Hospital Course Hospital Course Kim Lni is a 79 year old female with a past medical history of depression and anxiety, hypertension, hyperlipidemia, peripheral arterial disease on aspirin and Plavix, GERD, TIA, anxiety, peripheral neuropathy, who presents to [facility] due to altered mental status Patient was admitted to [facility] for acute delirium and altered mental status secondary to left-sided pneumonia and UTI, received antibiotic therapy, fluid therapy, neurochecks, her mentation improved, alert oriented x3, back to baseline. Patient will be discharged on Keflex and doxycycline, with close follow-up with primary care provider as outpatient. I suspect the patient has a component of dementia, she should follow-up with a primary care provider for further testing and evaluation. Discharged to her home, which is a senior apartment complex, with home health care. There was also concerns for anxiety and depression as a component to her altered mental status, surrounding the of her , no active suicidal ideation, no homicidal ideation, patient denies feeling down depressed or sad, was seen by psychiatry, who advised to continue medical management. Of note I have stopped patient's Trintellix as the use with viibryd can increase risk of adverse side effects such as serotonin syndrome I have reduced her gabapentin dose to 800 3 times daily Patient also had hypertensive urgency throughout her hospital admission, required multiple blood pressure medications, patient was advised to follow-up with her primary care provider for blood pressure check, if she were to have chest pain, shortness of breath, strokelike symptoms go to the emergency room Physical Exam Const: COMMON NORMALS: no acute distress and patient oriented x3 HENMT: COMMON NORMALS: normocephalic HEAD & SCALP: normocephalic Neck/C-Spine: COMMON NORMALS: no JVD Resp: COMMON NORMALS: normal respiratory effort, No retractions, No use of accessory muscles and clear to auscultation bilaterally AUSCULTATION: clear to auscultation bilaterally Cardio: COMMON NORMALS: no JVD, regular rate, regular rhythm, S1 normal heart sound present and S2 normal heart sound present RATE: regular rate RHYTHM: regular rhythm HEART SOUNDS: S1 normal heart sound present and S2 normal heart sound present GI: COMMON NORMALS: Normal to inspection, nondistended, normoactive bowel sounds present, Soft to palpation, non-tender, No hepatosplenomegaly present, no masses and no bruits PALPATION: Yes Soft to palpation and Yes No hepatosplenomegaly present Extremity: COMMON NORMALS: capillary refill normal, no clubbing, cyanosis or edema, no calf tenderness and no pedal edema Neuro: COMMON NORMALS: patient oriented x3 Psych: COMMON NORMALS: mental status grossly normal Discharge Data Data Completed and Pending: Completed Studies During Hospitalization Category Date Time Status CT head wo con* [id number] Urgent Cat Scan 09/29/20 12:14 Completed XR chest 1V bhumi ble [id number] Stat Exams 09/29/20 19:52 Completed CV echo complete* [id number] Routine Ultrasound 09/30/20 19:52 Completed Pending at discharge Category Date Time Status Blood Culture [facility] 09/29/20 19:52 Results Blood Culture [facility] 09/30/20 10:13 Results Complete Blood Co unt w/Auto AM LABS Lab 10/02/20 04:00 Ordered Complete Blood Co unt w/Auto AM LABS Lab 10/03/20 04:00 Ordered Comprehensive Met abolic Panel AM LA BS Lab 10/02/20 04:00 Ordered Comprehensive Met abolic Panel AM LA BS Lab 10/03/20 04:00 Ordered Magnesium AM LABS Lab 10/02/20 04:00 Ordered Magnesium AM LABS Lab 10/03/20 04:00 Ordered Phosphorus AM LAB S Lab 10/02/20 04:00 Ordered Phosphorus AM LAB S Lab 10/03/20 04:00 Ordered Urine Culture Sta t Lab 09/29/20 14:49 Results CV carotid duplex BI* [id number] Routine Ultrasound 09/30/20 19:52 Taken Labs from last 24 hours 10/01/20 10/01/20 09/30/20 05:00 05:00 17:39 WBC 10.2 H RBC 4.33 Hgb 13.0 Hct 40.0 MCV 92.4 MCH 30.0 MCHC 32.5 RDW 14.6 Plt Count 286 MPV 12.5 H Neut % (Auto) 56.6 Lymph % (Auto) 29.2 [place] % (Auto) 12.1 Eos % (Auto) 1.3 Baso % (Auto) 0.4 Neut # (Auto) 5.78 Lymph # (Auto) 3.0 [place] # (Auto) 1.2 H Eos # (Auto) 0.1 Baso # (Auto) 0.0 Nucleated RBC % (a uto) 0 Nucleated RBCs # 0.0 Sodium 141 Potassium 2.7 L* Chloride 98 Carbon Dioxide 29 Anion Gap 16.7 BUN 10 Creatinine 0.7 GFR Calculation Not Reportable Glucose 119 H Calculated Osmolal ity 292 Calcium 10.0 Phosphorus 2.4 L Magnesium 1.8 Total Bilirubin 0.5 AST 26 ALT 21 Alkaline Phosphata se 89 Troponin T Baselin e Troponin T 120 Min [place] Delta Troponin T Troponin T Hi Sens 6Hr 19.73 H Troponin T Hi Sens 6Hr Delta -2.27 L Total Protein 7.0 Albumin 4.3 Globulin 2.7 09/30/20 09/30/20 13:55 11:31 WBC RBC Hgb Hct MCV MCH MCHC RDW Plt Count MPV Neut % (Auto) Lymph % (Auto) [place] % (Auto) Eos % (Auto) Baso % (Auto) Neut # (Auto) Lymph # (Auto) [place] # (Auto) Eos # (Auto) Baso # (Auto) Nucleated RBC % (a uto) Nucleated RBCs # Sodium Potassium Chloride Carbon Dioxide Anion Gap BUN Creatinine GFR Calculation Glucose Calculated Osmolal ity Calcium Phosphorus Magnesium Total Bilirubin AST ALT Alkaline Phosphata se Troponin T Baselin e 22 H Troponin T 120 Min [place] 20.13 H Delta Troponin T -1.87 L Troponin T Hi Sens 6Hr Troponin T Hi Sens 6Hr Delta Total Protein Albumin Globulin Vitals: Last Vital Signs Temp 98.7 F 10/01/20 11:44 Pulse 85 10/01/20 11:44 Resp 18 10/01/20 11:44 BP 150/79 10/01/20 11:44 Pulse Ox 96 10/01/20 11:44 Discharge Plan Discharge Patient Disposition: Home Condition: Stable Prescriptions: New losartan 50 mg Tablet 50 mg PO DAILY 30 Days Qty: 30 RF: 0 clonidine HCl 0.1 mg Tablet 0.1 mg PO BID 30 Days Qty: 60 RF: 0 amlodipine 10 mg Tablet 10 mg PO DAILY 30 Days Qty: 30 RF: 0 metoprolol tartrate 25 mg Tablet 25 mg PO BID 30 Days Qty: 60 RF: 0 aspirin 81 mg tablet,delayed release (DR/EC) 81 mg PO DAILY 30 Days Qty: 30 RF: 0 hydrochlorothiazide 25 mg tablet 25 mg PO DAILY 30 Days Qty: 30 RF: 0 cephalexin [Keflex] 500 mg capsule 500 mg PO BID 7 Days Qty: 14 RF: 0 doxycycline hyclate 100 mg tablet 100 mg PO BID 7 Days Qty: 14 RF: 0 Continued atorvastatin 40 mg Tablet 40 mg PO DAILY RF: 0 diltiazem HCl 240 mg Capsule,Extended Release 24 Hr 240 mg PO DAILY RF: 0 zolpidem 10 mg Tablet 10 mg PO BEDTIME PRN (Reason: Insomnia) RF: 0 omeprazole magnesium [Prilosec OTC] 20 mg Tablet,Delayed Release (Dr/Ec) 40 mg PO DAILY RF: 0 ondansetron HCl [Zofran] 4 mg Tablet 4 mg PO Q8H PRN (Reason: Nausea) RF: 0 clopidogrel 75 mg Tablet 75 mg PO DAILY RF: 0 tramadol [Ultram] 50 mg Tablet 50 - 100 mg PO TID PRN (Reason: Pain) RF: 0 alprazolam 0.5 mg Tablet 0.5 mg PO BID PRN (Reason: Anxiety) RF: 0 tizanidine [Zanaflex] 2 mg Capsule 2 mg PO TID PRN (Reason: muscle spams) RF: 0 Viibryd 40 mg Tablet 40 mg PO DAILY RF: 0 Changed gabapentin 800 mg Tablet 800 mg PO TID Qty: 0 RF: 0 Discontinued metoprolol tartrate 25 mg tablet See Rx Instructions .ROUTE .COMPLEX Qty: 30 RF: 5 aspirin 325 mg Tablet 325 mg PO DAILY RF: 0 losartan 25 mg Tablet 25 mg PO DAILY RF: 0 hydrochlorothiazide 12.5 mg Tablet 12.5 mg PO DAILY RF: 0 Trintellix 10 mg Tablet 10 mg PO DAILY RF: 0 diphenhydramine HCl 25 mg Tablet 25 - 50 mg PO BEDTIME PRN (Reason: insomnia) RF: 0 ibuprofen 200 mg Tablet 800 mg PO Q8H PRN (Reason: Pain) RF: 0 Discharge Orders: Discharge Order (Routine); Ordered 10/01/20 Ordered By: Moe Vines Discharge Diet: Cardiac Discharge Activity: Resume usual activity Activity Restrictions/Additional Instructions: -Follow-up with primary care provider in 1 week for blood pressure check Discharge Attestations Time Spent in Discharge Care*: less than 30 min Quality Metrics Clinical Quality Measures During this hospital stay, did patient experience: None Coding Level of Care Code Acute Pressure Tank Operator for [facility] Fwd Diagnoses Altered mental status R41.82 GERD (gastroesophageal reflux disease) K21.9 Anxiety F41.9 Peripheral vascular disease I73.9 Hyperlipidemia E78.5 Hypertension I10 Insomnia G47.00 Chronic back pain M54.9; G89.29
[2020-10-01] MEDS: ALPRAZolam 0.5 mg Tablet PO (14:37)
--- NOTE | 2020-10-01 14:56 | PC.NURSE ---
1332 pt getting really agitated, Dr. Vines notified. orders to reorient pt. pt wandering halls, assisted pt back to room and reoriented pt. pt continued to become agitated after several attempts of orientation and distraction. Dr. Vines notified again, orders for prescribed zyprexa to be given. pt refused. Dr. Vines notified. reoriented pt to room. pt slightly calmed. pt still has 1:1 sitter, call light within reach. 1455 pt ready for discharge, daughter Dotty in ER parking lot. IV removed, asymptomatic. went over discharge paperwork with pt as well as daughter, Dotty, and Dotty signed paperwork due to pt not being able. all questions answered and pt left with Dotty with all personal belongings.
== END 2020-10-01 14:55 | disposition home or self-care (01) | DRG 689 ==
LOC: ER 16:26 → MEDSURG 09-30 09:35
PROVIDERS: Admitting Provider Family Medicine; Emergency Provider Emergency Medicine; Visit Provider Family Medicine
DX: N39.0 Urinary tract infection, site not specified (principal); J18.9 Pneumonia, unspecified organism; F05 Delirium due to known physiological condition; F41.8 Other specified anxiety disorders; I10 Essential (primary) hypertension; E78.5 Hyperlipidemia, unspecified; I73.9 Peripheral vascular disease, unspecified; Z79.82 Long term (current) use of aspirin; Z79.02 Long term (current) use of antithrombotics/antiplatelets; K21.9 Gastro-esophageal reflux disease without esophagitis; Z86.73 Personal history of transient ischemic attack (TIA), and cerebral infarction without residual deficits; G62.9 Polyneuropathy, unspecified; Z63.4 Disappearance and death of family member; G89.29 Other chronic pain; M54.9 Dorsalgia, unspecified; Z85.828 Personal history of other malignant neoplasm of skin; G47.00 Insomnia, unspecified; I16.0 Hypertensive urgency; F03.90 Unspecified dementia, unspecified severity, without behavioral disturbance, psychotic disturbance, mood disturbance, and anxiety; Z79.891 Long term (current) use of opiate analgesic; R41.82 Altered mental status, unspecified; F41.9 Anxiety disorder, unspecified; F32.9 Major depressive disorder, single episode, unspecified
CPT/HCPCS: 12345; 36415; 70450; 71045; 80053; 80061; 80306; 80307; 81001; 83036; 83735; 83880; 84100; 84145; 84443; 84484; 85025; 87040; 87077; 87086; 87186; 93005; 93306; 93880; 94664; 96372; 96375; 99284; G0378; J0456; J0696; J1630; J1650; J2060; J3490; J7050; Q0162

== ENCOUNTER 2020-10-07 04:18 | Inpatient (IN) | payer MEDICARE, MEDICAID, SELFPAY ==
[2020-10-07] VITALS (62 sets, daily range): BP systolic 106–177; BP diastolic 59–110; PULSE 61–111; RESP 13–25; TEMP 35.9–36.8; O2SAT 86–100; BMI 23.3
--- NOTE | 2020-10-07 04:22 | XR_ITS ---
WS: [id number] PORTABLE CHEST HISTORY: sob COMPARISON: 09/29/2020 Mild interstitial thickening and edema bilaterally is new. No dense consolidation. No pleural effusio n or pneumothorax. Cardiac size: Mildly enlarged cardiac silhouette. Mediastinum/Aorta: Mild atherosclerosis aorta. No osseous abnormality seen. XR/XR chest 1V portable [id number] IMPRESSION: Mild CHF with no pneumonia.
--- NOTE | 2020-10-07 04:22 | XR_ITS ---
WS: [id number] RIGHT HIP HISTORY: fall COMPARISON: None available. Right hip: No acute fracture or dislocation. Mild narrowing of the hip joint. No osteoblastic or oste olytic bone disease. Enthesopathy from the greater trochanter. No pubic rami fracture identified. There is soft tissue edema and increased density lateral to the proximal femur consistent with a debra adenike. XR/XR hip RT 2-3V wo/w pel* [id number] IMPRESSION: 1. No hip fracture. 2. Soft tissue contusion and hematoma lateral to the proximal femur.
--- NOTE | 2020-10-07 04:22 | CTR_ITS ---
PROCEDURE INFORMATION: Exam: CT Cervical Spine Without Contrast Exam date and time: 10/07/2020 4:25 AM Age: 80 years old Clinical indication: Injury or trauma; Fall; Blunt trauma; Patient HX: Patient found on the floor this a. M. AMS. TECHNIQUE: Imaging protocol: Computed tomography images of the cervical spine without contrast. Radiation optimization: All CT scans at this facility use at least one of these dose optimization techniques: automated exposure control; mA and/or kV adjustment per patient size (includes targeted exams where dose is matched to clinical indication); or iterative reconstruction. COMPARISON: CT Cervical Spine wo* [id number] 09/16/2018 6:50 PM RADIATION DOSE METRICS: Total DLP (mGy-cm): 668.14 FINDINGS: Bones/joints: There is straightening of the normal cervical lordosis. No acute fracture. Normal alignment. Discs/Spinal canal/Neural foramina: There are coarse ventral bridging osteophytes at C4/5 and C5/6. There is multilevel facet hypertrophy asymmetric to the right. There is fusion of the right C2 and C3 posterior elements. At C3/4, disc osteophyte complex and severe right facet hypertrophy contribute to severe right neural foraminal narrowing. Lungs: Lung apices are normal. Soft tissues: Unremarkable. CT/CT cervical spin wo con* [id number] IMPRESSION: No acute findings. Radiation Dose CTDIVOL = (mGy): DLP = 668.14 (mGy-cm)
--- NOTE | 2020-10-07 04:22 | CTR_ITS ---
PROCEDURE INFORMATION: Exam: CT Head Without Contrast Exam date and time: 10/07/2020 4:24 AM Age: 80 years old Clinical indication: Altered mental status/memory loss; Patient HX: Patient found on the floor this a. M. AMS. TECHNIQUE: Imaging protocol: Computed tomography of the head without contrast. Radiation optimization: All CT scans at this facility use at least one of these dose optimization techniques: automated exposure control; mA and/or kV adjustment per patient size (includes targeted exams where dose is matched to clinical indication); or iterative reconstruction. COMPARISON: CT head wo con* [id number] 09/29/2020 1:15 PM RADIATION DOSE METRICS: Total DLP (mGy-cm): 859.93 FINDINGS: Brain: There is no acute intracranial hemorrhage or mass effect. Moderate diffuse volume loss is within the range of normal for patient age. There are small vessel ischemic changes within the periventricular and subcortical white matter, but the normal king-white matter delineation is maintained. Cerebral ventricles: Prominence of the ventricular system is commensurate with volume loss. Bones/joints: Unremarkable. No acute fracture. Paranasal sinuses: Visualized sinuses are unremarkable. No fluid levels. Mastoid air cells: Visualized mastoid air cells are well aerated. Soft tissues: Unremarkable. CT/CT head wo con* [id number] IMPRESSION: No acute hemorrhage or edema. Radiation Dose CTDIVOL = (mGy): DLP = 859.93 (mGy-cm)
--- NOTE | 2020-10-07 04:23 | ECG_ITS ---
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 Measurements Intervals [place] Rate: 99 P: 81 AL: 201 QRS: 62 QRSD: 122 T: 85 QT: 375 QTc: 482 Interpretive Statements SINUS RHYTHM WITH OCCASIONAL VENTRICULAR PREMATURE COMPLEXES INDETERMINATE AXIS RIGHT BUNDLE BRANCH BLOCK [120+ ms QRS DURATION, UPRIGHT V1, 40+ ms S IN I/aVL/V4/V5/V6] Compared to ECG 09/30/2020 14:13:16 Ventricular premature complex(es) now present Indeterminate axis now present Right bundle-branch block now present First degree AV block no longer present Incomplete right bundle-branch block no longer present Myocardial infarct finding no longer present Electronically Signed On 10-07-2020 21:25:46 REAL ESTATE INSPECTOR by Pancho Garcia M.D. [email or web address]
--- NOTE | 2020-10-07 04:26 | ED_ITS ---
HPI - Altered Mental Status General: Chief Complaint: Altered Mental Status Stated Complaint: AMS Time Seen by Provider: 10/07/20 04:21 Source: patient and EMS Mode of arrival: EMS History of Present Illness: HPI narrative: 80-year-old female here by EMS for a fall along with confusion. Patient states that shower fell and on her and she does have a contusion to the back of her head. She able answer all my orientation questions but appears confused. She states that her right hip hurts and EMS states that she was laying on the ground and could not stand. Patient able to stand here. She denies any fever or chest pain. Associated symptoms: Deny depression Review of Systems Const: Denies: fever(s), chills, body aches or change in appetite Eyes: Denies: blurry vision or eye discomfort ENMT: Denies: throat pain or dental pain Card: Denies: chest pain Resp: Denies: dyspnea GI: Denies: abdominal pain, nausea, vomiting or diarrhea : Denies: dysuria Musc: Denies: neck pain or back pain Skin/Breast: Denies: rash Neuro: Reports: confusion Psych: Denies: depression William/Lymph: Denies: easy bruising All/Imm: Denies: urticaria PFSH ED 2 PFSH: Medical History Anxiety Chronic back pain Depression GERD (gastroesophageal reflux disease) Hyperlipidemia Hypertension Peripheral neuropathy Peripheral vascular disease Skin cancer Surgical History H/O: hysterectomy Hx of cholecystectomy Hx of tonsillectomy Family History Other Cancer Hypertension Social History Smoking and tobacco status: never smoked Alcohol intake: never Physical Exam Const: COMMON NORMALS: no acute distress, patient oriented x3 and healthy appearing HENMT: COMMON NORMALS: normocephalic HEAD & SCALP: normocephalic OTHER: contusion to posterior scalp Eye: COMMON NORMALS: Equal, round and reactive pupils present and EOMs intact bilaterally PUPIL: Yes Equal, round and reactive pupils present Neck/C-Spine: COMMON NORMALS: full ROM and supple Chest: COMMONS NORMALS: normal inspection of the chest and normal palpation of entire chest wall Resp: COMMON NORMALS: normal respiratory effort, No retractions, No use of accessory muscles and clear to auscultation bilaterally AUSCULTATION: clear to auscultation bilaterally Cardio: COMMON NORMALS: regular rate, regular rhythm and No murmurs present (Cardio) RATE: regular rate RHYTHM: regular rhythm GI: COMMON NORMALS: Normal to inspection, nondistended, normoactive bowel sounds present, Soft to palpation, non-tender and no masses PALPATION: Yes Soft to palpation Extremity: COMMON NORMALS: full ROM NARRATIVE EXTREMITY EXAM: Multiple bruises to abdomen and lower extremities one large bruise over right hip Neuro: COMMON NORMALS: patient oriented x3, moves all extremities and no focal motor deficits Psych: COMMON NORMALS: mental status grossly normal and cooperative THOUGHT PROCESS: confused Skin: COMMON NORMALS: no rashes or lesions noted and no wounds GENERAL SKIN EXAM: no rashes or lesions noted Course Vital Signs: Vital signs: Vital Signs Temperature 98.0 F 10/07/20 04:18 Pulse Rate 104 H 10/07/20 04:18 Respiratory Rate 18 10/07/20 04:18 Blood Pressure 168/88 10/07/20 05:30 Pulse Oximetry 97 10/07/20 05:30 MDM - Altered Mental Status MDM Narrative: Medical decision making narrative: 80-year-old female presents here with altered mental status. She is confused but able answer most of my questions correctly. She also has multiple bruises on her hip legs and abdomen and head from frequent falls. Patient's blood work and head CT here are normal. I spoke to hospitalist will admit for confusion along with her weakness and frequent falls. I feel she is unsafe at home at this point. Lab Data: Labs: Lab Results 10/07/20 10/07/20 10/07/20 Range/Units 04:30 04:30 04:30 WBC 10.2 H (4.0-10.0) 10^3/ uL RBC 4.23 (4.1-5.3) 10^6/u L Hgb 12.6 (11.5-15.3) g/dL Hct 39.0 (37.0-47.0) % MCV 92.2 (81-99) fL MCH 29.8 (28.0-34.0) pg MCHC 32.3 (30.0-36.0) g/dL RDW 14.5 (12.1-15.1) % Plt Count 285 (130-400) 10^3/c mm MPV 11.3 H (7.4-10.4) fL Neut % (Auto) 61.1 % Lymph % (Auto) 28.1 % [place] % (Auto) 8.7 % Eos % (Auto) 1.4 % Baso % (Auto) 0.4 % Neut # (Auto) 6.21 (1.8-7.7) 10^3/u L Lymph # (Auto) 2.9 (0.8-4.8) 10^3/u L [place] # (Auto) 0.9 (0.2-0.9) 10^3/u L Eos # (Auto) 0.1 (0.0-0.8) 10^3/u L Baso # (Auto) 0.0 (0.0-0.1) 10^3/u L Nucleated RBC % (a uto) 0 % Nucleated RBCs # 0.0 /100WBC PT 13.10 (12.1-14.9) SECO NDS INR 0.97 (0.8-1.2) Sodium 145 (136-145) mmol/L Potassium 2.9 L (3.5-5.1) mmol/L Chloride 104 (98-107) mmol/L Carbon Dioxide 29 (22-29) mmol/L Anion Gap 14.9 (5-19) BUN 24 H (8-23) mg/dL Creatinine 1.0 H (0.5-0.9) mg/dL GFR Calculation Not Reportable Glucose 106 (65-115) mg/dL Calculated Osmolal ity 304 H (285-295) mOsm/k g Calcium 10.0 (8.5-10.5) mg/dL Magnesium 1.8 (1.7-2.3) mg/dL Total Bilirubin 0.8 (0.15-1.2) mg/dL AST 18 (0-32) U/L ALT 15 (0-33) U/L Alkaline Phosphata se 82 (35-105) IU/L Total Protein 6.7 (6.6-8.7) g/dL Albumin 4.4 (3.5-5.2) g/dL Globulin 2.3 (1.3-4.6) g/dL Urine Color (Yellow) Urine Appearance (CLEAR) Urine pH (5-7) Ur Specific Gravit y (1.005-1.030) Urine Protein (Negative) Urine Glucose (UA) (Normal) Urine Ketones (Negative) Urine Blood (Negative) Urine Nitrate (Negative) Urine Bilirubin (Negative) Urine Urobilinogen (Negative) mg/dL Ur Leukocyte [place] ase (Negative) Salicylates < 0.3 L (3-10) mg/dL Acetaminophen < 5.0 L (10-30) ug/mL Ethyl Alcohol < 10 (0-10) mg/dL 10/07/20 Range/Units 05:11 WBC (4.0-10.0) 10^3/ uL RBC (4.1-5.3) 10^6/u L Hgb (11.5-15.3) g/dL Hct (37.0-47.0) % MCV (81-99) fL MCH (28.0-34.0) pg MCHC (30.0-36.0) g/dL RDW (12.1-15.1) % Plt Count (130-400) 10^3/c mm MPV (7.4-10.4) fL Neut % (Auto) % Lymph % (Auto) % [place] % (Auto) % Eos % (Auto) % Baso % (Auto) % Neut # (Auto) (1.8-7.7) 10^3/u L Lymph # (Auto) (0.8-4.8) 10^3/u L [place] # (Auto) (0.2-0.9) 10^3/u L Eos # (Auto) (0.0-0.8) 10^3/u L Baso # (Auto) (0.0-0.1) 10^3/u L Nucleated RBC % (a uto) % Nucleated RBCs # /100WBC PT (12.1-14.9) SECO NDS INR (0.8-1.2) Sodium (136-145) mmol/L Potassium (3.5-5.1) mmol/L Chloride (98-107) mmol/L Carbon Dioxide (22-29) mmol/L Anion Gap (5-19) BUN (8-23) mg/dL Creatinine (0.5-0.9) mg/dL GFR Calculation Glucose (65-115) mg/dL Calculated Osmolal ity (285-295) mOsm/k g Calcium (8.5-10.5) mg/dL Magnesium (1.7-2.3) mg/dL Total Bilirubin (0.15-1.2) mg/dL AST (0-32) U/L ALT (0-33) U/L Alkaline Phosphata se (35-105) IU/L Total Protein (6.6-8.7) g/dL Albumin (3.5-5.2) g/dL Globulin (1.3-4.6) g/dL Urine Color Yellow (Yellow) Urine Appearance Clear (CLEAR) Urine pH 5.0 (5-7) Ur Specific Gravit y 1.015 (1.005-1.030) Urine Protein Neg (Negative) Urine Glucose (UA) Norm (Normal) Urine Ketones Negative (Negative) Urine Blood Neg (Negative) Urine Nitrate Negative (Negative) Urine Bilirubin Neg (Negative) Urine Urobilinogen Norm (Negative) mg/dL Ur Leukocyte [place] ase Negative (Negative) Salicylates (3-10) mg/dL Acetaminophen (10-30) ug/mL Ethyl Alcohol (0-10) mg/dL Imaging Data^: CXR: Attestation: I personally reviewed and interpreted this imaging study as follows: My impression: no acute abnormalities xr r hip: Attestation: I personally reviewed and interpreted this imaging study as follows: Radiologist's impression: no acute fx EKG Data^: EKG 1: Attestation: I personally reviewed and interpreted this EKG as follows: EKG interpretation date: 10/07/20 EKG interpretation time: 04:30 Interpretation: nsr hr [address] or t wave abnormalities qrs 122 qtc 431 Discharge Plan Discharge Patient Disposition: Admitted As Inpatient Clinical Impression: Multiple falls, Weakness Altered mental status Qualifiers: Altered mental status type: unspecified Qualified Code(s): R41.82 - Altered mental status, unspecified Condition: Stable Coding Level of Care Code ED Driver Education Instructor for Chg Fwd Exam Comprehensive
[2020-10-07 04:46] LABS: Basophils % 0.4 %; Eosinophils # 0.1 10^3/uL (0.0-0.8); Eosinophils % 1.4 %; Hemoglobin 12.6 g/dL (11.5-15.3); Lymphocytes # 2.9 10^3/uL (0.8-4.8); Lymphocytes % 28.1 %; Mean Corpuscular HGB Conc 32.3 g/dL (30.0-36.0); Mean Corpuscular Hemoglobin 29.8 pg (28.0-34.0); Mean Corpuscular Volume 92.2 fL (81-99); Mean Platelet Volume 11.3 fL (7.4-10.4); Monocytes # 0.9 10^3/uL (0.2-0.9); Monocytes % 8.7 %; Neutrophils # 6.21 10^3/uL (1.8-7.7); Neutrophils % 61.1 %; Nucleated Red Blood Cells % 0 %; Platelet Count 285 10^3/cmm (130-400); Red Blood Count 4.23 10^6/uL (4.1-5.3); Red Cell Distribution Width 14.5 % (12.1-15.1); White Blood Count 10.2 10^3/uL (4.0-10.0)
[2020-10-07 05:03] LABS: INR 0.97 (0.8-1.2)
[2020-10-07 05:08] LABS: Acetaminophen < 5.0 ug/mL (10-30); Alanine Aminotransferase 15 U/L (0-33); Albumin Level 4.4 g/dL (3.5-5.2); Alcohol Level < 10 mg/dL (0-10); Alkaline Phosphatase 82 IU/L (35-105); Anion Gap 14.9 (5-19); Aspartate Amino Transferase 18 U/L (0-32); Blood Urea Nitrogen 24 mg/dL (8-23); Carbon Dioxide 29 mmol/L (22-29); Chloride 104 mmol/L (98-107); Globulin 2.3 g/dL (1.3-4.6); Glucose 106 mg/dL (65-115); Magnesium 1.8 mg/dL (1.7-2.3); Osmolality Calculated 304 mOsm/kg (285-295); Salicylate < 0.3 mg/dL (3-10); Sodium 145 mmol/L (136-145); Total Bilirubin 0.8 mg/dL (0.15-1.2); Total Protein 6.7 g/dL (6.6-8.7)
[2020-10-07 05:09] LABS: Potassium 2.9 mmol/L (3.5-5.1)
[2020-10-07 05:31] LABS: Add Urine Microscopic? NO
[2020-10-07] MEDS: potassium chloride ER 20 mEq Tablet 40 MEQ PO (05:36)
[2020-10-07 05:39] LABS: Bilirubin Urine Neg (Negative); Blood Urine Neg (Negative); Glucose Urine UA Norm (Normal); Ketones Urine Negative (Negative); Leukocyte Esterase Urine Negative (Negative); Nitrate Urine Negative (Negative); Protein Urine Neg (Negative); Specific Gravity, Urine 1.015 (1.005-1.030); Urine Appearance Clear (CLEAR); Urine Color Yellow (Yellow); Urobilinogen Urine Norm (Negative)
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
[2020-10-07 05:48] LABS: Amphetamines Screen Urine Negative (Negative); Barbiturates Screen Urine Negative (Negative); Benzodiazepines Screen Urine Positive (Negative); Cocaine Screen Urine Negative (Negative); Opiate Screen Urine Negative (Negative); PCP Screen Urine Negative (Negative); THC Screen Urine Negative (Negative)
[2020-10-07] MEDS: lidocaine 1% 5 ML in potassium chloride premix 100 ML 25 ML IV (07:30)
[2020-10-07 07:45] LABS: Magnesium 1.9 mg/dL (1.7-2.3)
[2020-10-07 07:57] LABS: Vitamin B12 671 pg/mL (232-1245)
[2020-10-07] MEDS: aspirin 81 mg EC Tablet PO (08:42)
[2020-10-07] MEDS: clopidogrel 75 mg Tablet PO (08:42)
[2020-10-07] MEDS: atorvastatin 40 mg Tablet PO (08:43)
[2020-10-07] MEDS: losartan 50 mg Tablet PO (08:43)
[2020-10-07] MEDS: amlodipine 10 mg Tablet PO (08:43)
[2020-10-07] MEDS: dilTIAZem ER (24HR) 240 mg Capsule PO (08:43)
[2020-10-07] MEDS: gabapentin 300 mg Capsule PO ×3 (08:43→20:23)
--- NOTE | 2020-10-07 09:00 | PC.NURSE ---
Patient heard yelling from nurse's station. Nurse entered room and patient said, Dotty get back over here! as she was looking over her shoulder at the wall, and said to nurse, can you grab her for me? I really need to talk to her. Patient was having auditory and visual hallucinations. Nurse attempted to orient patient to time and place. Patient states that she is in a bus station and needs to hurry because she has to go and doesn't have time to talk right now. Bed alarm on, bed in low locked position. Nurse to continue to monitor.
--- NOTE | 2020-10-07 09:22 | PC.NURSE ---
Patient O2 saturations 86% on RA, placed on 2L NC. Recovered to 99%. Nurse to continue to monitor.
--- NOTE | 2020-10-07 10:35 | PC.NURSE ---
bed alarm sounded when i got in there pt says someone told her to get up and check for the monkeys under her bed so she wanted me to check for monkeys under her bed so i did and told her there was no monkeys
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
[2020-10-07] MEDS: OLANZapine 5 mg ODT PO (20:23)
[2020-10-07] MEDS: ziprasidone 20 mg/mL SDV IM (23:43)
[2020-10-08] VITALS (28 sets, daily range): BP systolic 127–170; BP diastolic 81–95; PULSE 88–109; RESP 12–29; TEMP 36.3–36.9; O2SAT 83–98
--- NOTE | 2020-10-08 05:44 | PC.NURSE ---
Pt found to be in the hallway wearing only her incontinence brief and non-skid footwear. Pt escorted back to bed and assisted to a position of comfort. Linens changed and new gown applied. Pt removed her gaming cage worker as well as her pulse oxemetry and blood pressure cuff. Pt placed back on the gaming cage worker and pulse oxemetry as well as the bed alarm set to a more sensitive setting. Pt bed alarm triggered and staff found the patient to be in bed in no acute distress however the patient also was watching staff when we turned off the bed alarm. The bed alarm went off again and the patient was found to be attempting to turn the bed alarm off herself. The patient had removed all monitoring equipment and was attempting to DC her own IV cathater from her left AC. Pt was redirected and a coband bandage was applied over the left IV insertion site. Pt was placed back on pulse oxemetry and at this time this nurse is remaining in this patient's room to monitor the patient's safety.
--- NOTE | 2020-10-08 05:55 | PC.NURSE ---
Patient getting out of bed leaving her room in only a disposable brief. Will not leave telemetry in place and pulling at iv. She states, I really need to get out of here so I can go find my lost 13year old daughter. She is becoming more angry and kicking at staff. Informed Dr Harris and received telephone order for one time dose of Zyprexa 10mg IM. RBVO
[2020-10-08] MEDS: OLANZapine 10 mg VIAL IM ×2 (06:04→12:04)
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
[2020-10-08] MEDS: LORazepam 2 mg/mL INJ 1 mL 1 MG IM (06:31)
--- NOTE | 2020-10-08 06:31 | PC.NURSE ---
Patient up out of bed. Patient disabled bed alarm as she got out of bed. Patient recognizes staff as RNs. Informed Dr Harris and he placed order for Ativan 1mg IM which is being administered by RN presently.
--- NOTE | 2020-10-08 10:00 | PC.NURSE ---
Patient resting in bed. Patient refuses to take morning medications. Dr. Vines notified. No new orders received. Nurse to continue to monitor.
--- NOTE | 2020-10-08 11:24 | PC.CHAP ---
Pastoral Care Encounter/Spiritual Assessment Type of Contact [] Declined post production assistant visit [] Patient/Family/Request visit [] Outpatient visit [x] Follow-up visit [] Physician referral [] Code/Alert [] Routine visit [] Staff referral [] Actively dying [x] Patient sleeping [] Family support [] [] Out of room [] Palliative care [] [] Receiving care in room [] Pre-surgical visit [] Trauma [] Long length of stay [] ICU visit [] Other: Relational/Emotional Strength [] Patient feels connected with others/family/visitors/staff [] Distress [] Loneliness/isolation [] Abandonment Spirituality of Patient [] Person of Juliette [] Attends Restorationist of their Juliette [] Believes in Prayer [] Reads Bible or Church materials [] There are Spiritual issues to be addressed Car Varnisher Interventions [] Prayer [] Active listening [] Non-anxious presence [] Spiritual/emotional support [] Crisis/trauma care [] Spiritual counseling [] Bereavement support [] Provided bereavement packet [] Provided Bible/devotional materials [] Provided toy/stuffed animal, coloring book to patient or family member [] Provided Communion [] Anointing/[place] [] Salvation [] Completed spiritual assessment [] Other: Impact on Illness or Injury [] Angry [] Fearful [] Anxious [] Often cries [] Exhaustion [] Unable to work [] Unable to attend mandaen [] Unable to walk/stand [] Unable to read [] Unable to drive [] Unable to eat/drink [] Unable to sleep [] Unable to be with family [] Patient intubated [] Other: Summary Patient sleeping, aid with her Time spent with patient 5 mins
--- NOTE | 2020-10-08 11:55 | PC.NURSE ---
Behaviors Patient attempting to climb OOB and is kicking staff. Patient attempting to bite and scratch. Patient is unable to be reoriented or redirected. Security called to bedside. Dr. Vines notified. Telephone order received for 10 mg Zyprexa IM. RBTO. Nurse to continue to monitor.
--- NOTE | 2020-10-08 13:30 | PC.NURSE ---
Patient is now calm and resting in bed. Nurse to continue to monitor.
[2020-10-08] MEDS: gabapentin 300 mg Capsule PO ×2 (15:48→21:08)
--- NOTE | 2020-10-08 17:30 | PC.NURSE ---
Dr. Vines notified of patient BP and HR. Telephone order received to administer 10 mg amlodipine and 240 mg cardizem PO once now. Recheck BP in 2 hours. If SBP>180 or DBP>100 give losartan 50 mg once. RBTO. Nurse to continue to monitor.
--- NOTE | 2020-10-08 17:43 | P.PN_ITS ---
Subjective Subjective: Interval history: This morning patient was examined, she is sleeping in bed, she is arousable, but wants to go back to sleep, does not really want to be bothered, but tells me she is doing okay, she has no complaints In the afternoon, patient woke up, had episodes of agitation, confusion, requiring Zyprexa Currently in the evening a bit more awake, willing to take medications Vitals/I&O/Wt Last Vital Signs Temp 97.6 F 10/08/20 17:00 Pulse 103 H 10/08/20 17:00 Resp 18 10/08/20 17:00 BP 170/95 10/08/20 17:00 Pulse Ox 91 10/08/20 05:45 10/08/20 10/08/20 10/08/20 06:59 14:59 22:59 Intake Total 0 / 1205 Output Total 0 / 0 Balance 0 / 1205 Weight last 48 hrs Weight 65.771 kg Physical Exam Const: COMMON NORMALS: alert GENERAL APPEARANCE: not cooperative ORIENTATION/CONSCIOUSNESS: Yes awake and Yes oriented to person; not oriented to place and not oriented to time Resp: COMMON NORMALS: normal respiratory effort and clear to auscultation bilaterally AUSCULTATION: clear to auscultation bilaterally Cardio: COMMON NORMALS: regular rate, regular rhythm, S1 normal heart sound present and S2 normal heart sound present RATE: regular rate RHYTHM: regular rhythm HEART SOUNDS: S1 normal heart sound present and S2 normal heart sound present GI: COMMON NORMALS: Normal to inspection, nondistended, normoactive bowel sounds present, Soft to palpation and non-tender PALPATION: Yes Soft to palpation : COMMON NORMALS: Yes no CVA tenderness BLADDER/KIDNEY EXAM: Yes no CVA tenderness Back/Pelvis: COMMON NORMALS: no CVA tenderness Neuro: SENSORIUM/ORIENTATION: Yes alert, Yes oriented to person, No oriented to place and No oriented to time Data : 10/07/20 04:30 10/07/20 04:30 A&P Assessment and plan (1) Multiple falls: Status: Acute (2) Altered mental status: Status: Acute Qualifiers: Altered mental status type: unspecified Qualified Code(s): R41.82 - Altered mental status, unspecified (3) Peripheral neuropathy: Status: Acute (4) GERD (gastroesophageal reflux disease): Status: Acute (5) Cognitive impairment: Status: Acute (6) Hypokalemia: Status: Acute Additional A&P Information Altered mental status Patient is currently awake alert and oriented x2, unfortunately she is sleeping during the day, wake during the night, alteration of sleep-wake cycle On previous admission she did well after antibiotic regimen for UTI however at this time CBC BMP urinalysis unremarkable except hypokalemia. As such less likely to have metabolic encephalopathy, concern for acute psychosis CT head unremarkable No signs of stroke or meningitis, no signs of sepsis Her antipsychotic & anxiolytics were also changed on last visit and dosages were decreased Psychiatry consult with Dr. Gonzales to assess for psychosis versus dementia Zyprexa for anxiety episodes Hypokalemia: Repleted with 40 mEq p.o. and 40 mEq of IV potassium, recheck with a.m. labs. Multiple falls I am not sure about the cause she is not depicting any signs of stroke, cauda e quina syndrome or UTI she does have history of neuropathy PT OT eval Full code Cardiac diet DVT prophylaxis SCDs I would avoid anticoagulation because of her neuropathy and recurrent falls Attestations Medical Necessity Statement*: Patient requires hospitalization for altered mental status, likely related to underlying dementia depression anxiety Coding Level of Care Code Acute Grain Blender for g Fwd Diagnoses Multiple falls R29.6 Altered mental status R41.82 Altered mental status type: unspecified Peripheral neuropathy G62.9 GERD (gastroesophageal reflux disease) K21.9 Cognitive impairment R41.89 Hypokalemia E87.6
[2020-10-08] MEDS: dilTIAZem ER (24HR) 240 mg Capsule PO (17:48)
[2020-10-08] MEDS: amlodipine 10 mg Tablet PO (17:48)
[2020-10-08] MEDS: OLANZapine 5 mg ODT PO (21:08)
[2020-10-09] VITALS (57 sets, daily range): BP systolic 98–144; BP diastolic 58–87; PULSE 84–109; RESP 0–35; TEMP 36.6–36.8; O2SAT 93–98
[2020-10-09] MEDS: aspirin 81 mg EC Tablet PO (09:34)
[2020-10-09] MEDS: clopidogrel 75 mg Tablet PO (09:34)
[2020-10-09] MEDS: losartan 50 mg Tablet PO (09:34)
[2020-10-09] MEDS: atorvastatin 40 mg Tablet PO (09:34)
[2020-10-09] MEDS: dilTIAZem ER (24HR) 240 mg Capsule PO (09:35)
[2020-10-09] MEDS: gabapentin 300 mg Capsule PO ×3 (09:35→21:00)
[2020-10-09] MEDS: amlodipine 10 mg Tablet PO (09:35)
--- NOTE | 2020-10-09 09:37 | MRR_ITS ---
PROCEDURE INFORMATION: Exam: MR Head Without Contrast Exam date and time: 10/09/2020 9:38 AM Age: 80 years old Clinical indication: Altered mental status/memory loss and other: Confusion TECHNIQUE: Imaging protocol: MR of the head without contrast. COMPARISON: MR head wo con* [id number] 2018-02-22 08:40 FINDINGS: Brain: No diffusion restriction to suggest acute ischemia or infarction. Mild scattered FLAIR hyperintense foci within the supratentorial deep and subcortical white matter suggesting mild chronic small vessel ischemic disease. No gradient susceptibility blooming within the brain parenchyma to suggest hemorrhage. No midline shift, mass, or fluid collection is present. Diffuse cerebral age related volume loss. The brainstem, posterior fossa and cervical medullary junction are preserved. Cerebral ventricles: Ventricular enlargement proportional to volume loss. Bones/joints: Unremarkable. Paranasal sinuses: Normal as visualized. No acute sinusitis. Mastoid air cells: Normal as visualized. No mastoid effusion. Orbits: Unremarkable. Soft tissues: Unremarkable. MR/MR head wo con* [id number] IMPRESSION: Mild age-related changes. No acute abnormality.
--- NOTE | 2020-10-09 09:39 | PC.CHAP ---
Pastoral Care Encounter/Spiritual Assessment Type of Contact [] Declined foil stamp operator visit [] Patient/Family/Request visit [] Outpatient visit [] Follow-up visit [] Physician referral [] Code/Alert [] Routine visit [] Staff referral [] Actively dying [] Patient sleeping [] Family support [] [] Out of room [] Palliative care [] [] Receiving care in room [] Pre-surgical visit [] Trauma [] Long length of stay [] ICU visit [] Other: Relational/Emotional Strength [] Patient feels connected with others/family/visitors/staff [] Distress [] Loneliness/isolation [] Abandonment Spirituality of Patient [] Person of Juliette [] Attends Jewish of their [place]te [] Believes in Prayer [] Reads Bible or Hoahaoism materials [] There are Spiritual issues to be addressed Underwear Trimmer Interventions [x] Prayer [] Active listening [] Non-anxious presence [] Spiritual/emotional support [] Crisis/trauma care [] Spiritual counseling [] Bereavement support [] Provided bereavement packet [] Provided Bible/devotional materials [] Provided toy/stuffed animal, coloring book to patient or family member [] Provided Communion [] Anointing/[place] [] Salvation [] Completed spiritual assessment [] Other: Impact on Illness or Injury [] Angry [] Fearful [] Anxious [] Often cries [] Exhaustion [] Unable to work [] Unable to attend catholic [] Unable to walk/stand [] Unable to read [] Unable to drive [] Unable to eat/drink [] Unable to sleep [] Unable to be with family [] Patient intubated [] Other: Summary Time spent with patient
[2020-10-09 10:23] LABS: Basophils # 0.1 10^3/uL (0.0-0.1); Basophils % 0.6 %; Eosinophils # 0.4 10^3/uL (0.0-0.8); Eosinophils % 3.5 %; Hematocrit 42.7 % (37.0-47.0); Hemoglobin 13.7 g/dL (11.5-15.3); Lymphocytes # 2.9 10^3/uL (0.8-4.8); Lymphocytes % 28.5 %; Mean Corpuscular HGB Conc 32.1 g/dL (30.0-36.0); Mean Corpuscular Volume 93.4 fL (81-99); Monocytes # 0.6 10^3/uL (0.2-0.9); Monocytes % 6.3 %; Neutrophils # 6.22 10^3/uL (1.8-7.7); Neutrophils % 60.8 %; Nucleated Red Blood Cells % 0 %; Platelet Count 304 10^3/cmm (130-400); Red Blood Count 4.57 10^6/uL (4.1-5.3); Red Cell Distribution Width 14.8 % (12.1-15.1); White Blood Count 10.2 10^3/uL (4.0-10.0)
[2020-10-09 10:49] LABS: Alanine Aminotransferase 13 U/L (0-33); Alkaline Phosphatase 82 IU/L (35-105); Aspartate Amino Transferase 15 U/L (0-32); Blood Urea Nitrogen 21 mg/dL (8-23); Calcium 9.7 mg/dL (8.5-10.5); Carbon Dioxide 28 mmol/L (22-29); Chloride 102 mmol/L (98-107); Globulin 2.6 g/dL (1.3-4.6); Glucose 161 mg/dL (65-115); Magnesium 1.8 mg/dL (1.7-2.3); Osmolality Calculated 302 mOsm/kg (285-295); Phosphorus 3.2 mg/dL (2.5-4.5); Sodium 143 mmol/L (136-145); Total Bilirubin 0.8 mg/dL (0.15-1.2); Total Protein 6.6 g/dL (6.6-8.7)
[2020-10-09] MEDS: lanolin oint 7 gm 1 APPLIC TOPICAL (15:52)
--- NOTE | 2020-10-09 17:13 | P.PN_ITS ---
Subjective Subjective: Interval history: This morning patient is much more alert, awake, sitting up in bed, she has no particular complaints, is much more calm this morning, answers questions appropriate, adamantly denies episodes of confusion Vitals/I&O/Wt Last Vital Signs Temp 97.8 F 10/09/20 09:30 Pulse 102 H 10/09/20 14:00 Resp 14 10/09/20 13:15 BP 135/87 10/09/20 13:15 Pulse Ox 96 10/09/20 13:15 10/09/20 10/09/20 10/09/20 06:59 14:59 22:59 Intake Total 480 / 480 Balance 480 / 480 Physical Exam Const: COMMON NORMALS: no acute distress and patient oriented x3 HENMT: COMMON NORMALS: normocephalic HEAD & SCALP: normocephalic Neck/C-Spine: COMMON NORMALS: no JVD Resp: COMMON NORMALS: normal respiratory effort, No retractions, No use of accessory muscles and clear to auscultation bilaterally AUSCULTATION: clear to auscultation bilaterally Cardio: COMMON NORMALS: no JVD, regular rate, regular rhythm, S1 normal heart sound present and S2 normal heart sound present RATE: regular rate RHYTHM: regular rhythm HEART SOUNDS: S1 normal heart sound present and S2 normal heart sound present GI: COMMON NORMALS: Normal to inspection, nondistended, normoactive bowel sounds present, Soft to palpation, non-tender, No hepatosplenomegaly present, no masses and no bruits PALPATION: Yes Soft to palpation and Yes No hepatosplenomegaly present Extremity: COMMON NORMALS: capillary refill normal, no clubbing, cyanosis or edema, no calf tenderness and no pedal edema Neuro: COMMON NORMALS: patient oriented x3 Psych: COMMON NORMALS: mental status grossly normal Data : 10/09/20 09:54 10/09/20 09:54 A&P Assessment and plan (1) Multiple falls: Status: Acute (2) Altered mental status: Status: Acute Qualifiers: Altered mental status type: unspecified Qualified Code(s): R41.82 - Altered mental status, unspecified (3) Peripheral neuropathy: Status: Acute (4) GERD (gastroesophageal reflux disease): Status: Acute (5) Cognitive impairment: Status: Acute (6) Hypokalemia: Status: Acute Additional A&P Information Altered mental status Patient is currently awake alert and oriented x3, much more alert awake On previous admission she did well after antibiotic regimen for UTI however at this time CBC BMP urinalysis unremarkable except hypokalemia. As such less likely to have metabolic encephalopathy, concern for acute psychosis CT head unremarkable Will order MRI today No signs of stroke or meningitis, no signs of sepsis Her antipsychotic & anxiolytics were also changed on last visit and dosages were decreased Psychiatry consult with Dr. Gonzales to assess for psychosis versus dementia Zyprexa for anxiety episodes Hypokalemia: Repleted with 40 mEq p.o. and 40 mEq of IV potassium, recheck with a.m. labs. Multiple falls I am not sure about the cause she is not depicting any signs of stroke, cauda equina syndrome or UTI she does have history of neuropathy PT OT eval Full code Cardiac diet DVT prophylaxis SCDs I would avoid anticoagulation because of her neuropathy and recurrent falls Attestations Medical Necessity Statement*: Patient requires hospitalization for altered mental status, multiple falls, requiring placement to geriatric psych Coding Level of Care Code Acute Twenty One Dealer for [facility] Fwd Diagnoses Multiple falls R29.6 Altered mental status R41.82 Altered mental status type: unspecified Peripheral neuropathy G62.9 GERD (gastroesophageal reflux disease) K21.9 Cognitive impairment R41.89 Hypokalemia E87.6
--- NOTE | 2020-10-09 17:15 | PM.PN ---
Subjective Subjective: Interval history: This morning patient was examined, he was alert oriented x3, his only complaint was back pain, but he had a slight left facial droop, left upper left lower extremity weakness which was slight 4/5, CTA of the head and neck did not show any hemodynamically significant carotid artery stenosis, but does have diffuse atherosclerosis, neurologist at [facility] was called, NIH stroke scale 3, patient not a TPA candidate given Vitals/I&O/Wt Last Vital Signs Temp 97.8 F 10/09/20 09:30 Pulse 102 H 10/09/20 14:00 Resp 14 10/09/20 13:15 BP 135/87 10/09/20 13:15 Pulse Ox 96 10/09/20 13:15 10/09/20 10/09/20 10/09/20 06:59 14:59 22:59 Intake Total 480 / 480 Balance 480 / 480 Data : 10/09/20 09:54 10/09/20 09:54 Coding Level of Care Code Acute Elevator Repairer Apprentice for [facility]ser
[2020-10-09] MEDS: potassium chloride ER 20 mEq Tablet 40 MEQ PO (17:40)
[2020-10-09] MEDS: OLANZapine 5 mg ODT PO (21:00)
[2020-10-10] VITALS (51 sets, daily range): BP systolic 112–144; BP diastolic 54–89; PULSE 60–113; RESP 15–32; TEMP 36.4–37.1; O2SAT 94–98
[2020-10-10] MEDS: dilTIAZem ER (24HR) 240 mg Capsule PO (09:03)
[2020-10-10] MEDS: amlodipine 10 mg Tablet PO (09:03)
[2020-10-10] MEDS: losartan 50 mg Tablet PO (09:03)
[2020-10-10] MEDS: atorvastatin 40 mg Tablet PO (09:03)
[2020-10-10] MEDS: clopidogrel 75 mg Tablet PO (09:03)
[2020-10-10] MEDS: aspirin 81 mg EC Tablet PO (09:03)
[2020-10-10] MEDS: potassium chloride ER 20 mEq Tablet 40 MEQ PO (09:04)
[2020-10-10] MEDS: gabapentin 300 mg Capsule PO ×3 (09:04→21:07)
[2020-10-10 14:52] LABS: Basophils # 0.1 10^3/uL (0.0-0.1); Basophils % 0.5 %; Eosinophils # 0.3 10^3/uL (0.0-0.8); Eosinophils % 3.1 %; Hematocrit 42.6 % (37.0-47.0); Hemoglobin 13.4 g/dL (11.5-15.3); Lymphocytes # 2.7 10^3/uL (0.8-4.8); Lymphocytes % 28.6 %; Mean Corpuscular HGB Conc 31.5 g/dL (30.0-36.0); Mean Corpuscular Volume 95.3 fL (81-99); Mean Platelet Volume 11.8 fL (7.4-10.4); Monocytes # 0.7 10^3/uL (0.2-0.9); Monocytes % 6.8 %; Neutrophils % 60.7 %; Nucleated Red Blood Cells % 0 %; Platelet Count 297 10^3/cmm (130-400); Red Blood Count 4.47 10^6/uL (4.1-5.3); White Blood Count 9.6 10^3/uL (4.0-10.0)
[2020-10-10 15:36] LABS: Alanine Aminotransferase 12 U/L (0-33); Albumin Level 4.1 g/dL (3.5-5.2); Alkaline Phosphatase 82 IU/L (35-105); Anion Gap 14.1 (5-19); Aspartate Amino Transferase 14 U/L (0-32); Blood Urea Nitrogen 24 mg/dL (8-23); Carbon Dioxide 27 mmol/L (22-29); Chloride 103 mmol/L (98-107); Globulin 2.5 g/dL (1.3-4.6); Glucose 138 mg/dL (65-115); Magnesium 1.7 mg/dL (1.7-2.3); Osmolality Calculated 296 mOsm/kg (285-295); Phosphorus 2.2 mg/dL (2.5-4.5); Potassium 4.1 mmol/L (3.5-5.1); Sodium 140 mmol/L (136-145); Total Bilirubin 0.6 mg/dL (0.15-1.2); Total Protein 6.6 g/dL (6.6-8.7)
--- NOTE | 2020-10-10 16:35 | P.PN_ITS ---
Subjective Subjective: Interval history: I had an extensive discussion with patient this morning, she is alert to person, place, time, and during my conversation, she does have significant episodes of confusion that only bystanders skin noticed, she does not notice it, she goes off on a tangent about losing her purse, when she got onto a bus a white bus, she saw a lot of purses there, she does not know where her purse is, she is also tells me that her children have sold all her furniture Vitals/I&O/Wt Last Vital Signs Temp 97.5 F L 10/10/20 16:00 Pulse 95 10/10/20 16:00 Resp 16 10/10/20 16:00 BP 130/89 10/10/20 16:00 Pulse Ox 94 10/10/20 16:00 10/10/20 10/10/20 10/10/20 06:59 14:59 22:59 Intake Total 840 / 840 Balance 840 / 840 Physical Exam Const: COMMON NORMALS: no acute distress and patient oriented x3 ORIENTATIO N/CONSCIOUSNESS: Yes confused HENMT: COMMON NORMALS: normocephalic HEAD & SCALP: normocephalic Neck/C-Spine: COMMON NORMALS: no JVD Resp: COMMON NORMALS: normal respiratory effort, No retractions, No use of accessory muscles and clear to auscultation bilaterally AUSCULTATION: clear to auscultation bilaterally Cardio: COMMON NORMALS: no JVD, regular rate, regular rhythm, S1 normal heart sound present and S2 normal heart sound present RATE: regular rate RHYTHM: regular rhythm HEART SOUNDS: S1 normal heart sound present and S2 normal heart sound present GI: COMMON NORMALS: Normal to inspection, nondistended, normoactive bowel sounds present, Soft to palpation, non-tender, No hepatosplenomegaly present, no masses and no bruits PALPATION: Yes Soft to palpation and Yes No hepatos plenomegaly present Extremity: COMMON NORMALS: capillary refill normal, no clubbing, cyanosis or edema, no calf tenderness and no pedal edema Neuro: COMMON NORMALS: patient oriented x3 Psych: COMMON NORMALS: mental status grossly normal Data : 10/10/20 14:41 10/10/20 14:41 A&P Assessment and plan (1) Multiple falls: Status: Acute (2) Altered mental status: Status: Acute Qualifiers: Altered mental status type: unspecified Qualified Code(s): R41.82 - Altered mental status, unspecified (3) Peripheral neuropathy: Status: Acute (4) GERD (gastroesophageal reflux disease): Status: Acute (5) Cognitive impairment: Status: Acute (6) Hypokalemia: Status: Acute Additional A&P Information Altered mental status Patient is currently awake alert and oriented x3, much more alert awake, does have significant episodes of confusion during conversation On previous admission she did well after antibiotic regimen for UTI however at this time CBC BMP urinalysis unremarkable except hypokalemia. As such less likely to have metabolic encephalopathy, concern for acute psychosis CT head unremarkable MRI of the brain shows mild age-related changes No signs of stroke or meningitis, no signs of sepsis Her antipsychotic & anxiolytics were also changed on last visit and dosages were decreased Psychiatry consult with Dr. Gonzales to assess for psychosis versus dementia Zyprexa for anxiety episodes Hypokalemia: Repleted with 40 mEq p.o. and 40 mEq of IV potassium, recheck with a.m. labs. Multiple falls I am not sure about the cause she is not depicting any signs of stroke, cauda equina syndrome or UTI she does have history of neuropathy PT OT eval Full code Cardiac diet DVT prophylaxis SCDs I would avoid anticoagulation because of her neuropathy and recurrent falls Attestations Medical Necessity Statement*: Patient requires hospitalization for worsening dementia, multiple falls, regarding possible placement to geriatric psych Coding Level of Care Code Acute Shoe Stock Associate for [facility] Fwd Diagnoses Multiple falls R29.6 Altered mental status R41.82 Altered mental status type: unspecified Peripheral neuropathy G62.9 GERD (gastroesophageal reflux disease) K21.9 Cognitive impairment R41.89 Hypokalemia E87.6
[2020-10-10] MEDS: OLANZapine 5 mg ODT PO (21:06)
[2020-10-11] VITALS (86 sets, daily range): BP systolic 109–157; BP diastolic 70–89; PULSE 74–112; RESP 13–32; TEMP 36.4–36.8; O2SAT 94–100
[2020-10-11] MEDS: tizanidine 4 mg Tablet 2 MG PO (01:19)
[2020-10-11 04:43] LABS: Basophils % 0.4 %; Eosinophils # 0.4 10^3/uL (0.0-0.8); Eosinophils % 3.5 %; Hematocrit 35.7 % (37.0-47.0); Lymphocytes # 4.1 10^3/uL (0.8-4.8); Lymphocytes % 38.8 %; Mean Corpuscular HGB Conc 30.8 g/dL (30.0-36.0); Mean Corpuscular Hemoglobin 29.6 pg (28.0-34.0); Mean Corpuscular Volume 96.2 fL (81-99); Mean Platelet Volume 12.1 fL (7.4-10.4); Monocytes # 0.8 10^3/uL (0.2-0.9); Monocytes % 7.3 %; Neutrophils # 5.24 10^3/uL (1.8-7.7); Neutrophils % 49.8 %; Nucleated Red Blood Cells % 0 %; Platelet Count 223 10^3/cmm (130-400); Red Blood Count 3.71 10^6/uL (4.1-5.3); Red Cell Distribution Width 14.9 % (12.1-15.1); White Blood Count 10.5 10^3/uL (4.0-10.0)
[2020-10-11 05:08] LABS: Alanine Aminotransferase 10 U/L (0-33); Albumin Level 3.5 g/dL (3.5-5.2); Alkaline Phosphatase 69 IU/L (35-105); Anion Gap 14.8 (5-19); Aspartate Amino Transferase 10 U/L (0-32); Blood Urea Nitrogen 27 mg/dL (8-23); Calcium 9.3 mg/dL (8.5-10.5); Carbon Dioxide 25 mmol/L (22-29); Chloride 107 mmol/L (98-107); Globulin 1.9 g/dL (1.3-4.6); Glucose 119 mg/dL (65-115); Magnesium 1.6 mg/dL (1.7-2.3); Osmolality Calculated 302 mOsm/kg (285-295); Phosphorus 3.3 mg/dL (2.5-4.5); Potassium 3.8 mmol/L (3.5-5.1); Sodium 143 mmol/L (136-145); Total Bilirubin 0.5 mg/dL (0.15-1.2); Total Protein 5.4 g/dL (6.6-8.7)
[2020-10-11] MEDS: losartan 50 mg Tablet PO (09:03)
[2020-10-11] MEDS: clopidogrel 75 mg Tablet PO (09:03)
[2020-10-11] MEDS: atorvastatin 40 mg Tablet PO (09:03)
[2020-10-11] MEDS: amlodipine 10 mg Tablet PO (09:03)
[2020-10-11] MEDS: aspirin 81 mg EC Tablet PO (09:03)
[2020-10-11] MEDS: dilTIAZem ER (24HR) 240 mg Capsule PO (09:04)
[2020-10-11] MEDS: gabapentin 300 mg Capsule PO ×3 (09:04→20:59)
--- NOTE | 2020-10-11 12:15 | PC.NURSE ---
PATIENT IS HAVING DELUSIONS THAT SOMEONE IS ANSWERING HER PHONE AT HER APARTMENT, HOWEVER WHAT SHE DESCRIBES SOUNDS LIKE AN ANSWERING MACHINE RECORDING. SHE ALSO STATED THAT SHE BELIEVES THAT SOMEONE IS USING THE SHOWER AT HER APARTMENT, HOWEVER SHE CANNOT EXPLAIN HOW SHE KNOWS THAT. SHE IS TALKING ABOUT THE BUS AGAIN THAT HAD BEEN MENTIONED TO THE PHYSICIAN AND PREVIOUS NURSES. SHE TOLD THIS NURSE THAT HER DAUGHTER HAD BEEN KIDNAPPED WHEN SHE WAS 14 YEARS OLD AND THAT'S WHY SHE HAD BEEN ON THAT BUS, OUT LOOKING FOR HER DAUGHTER. NURSE IS UNSURE THE AGE OF HER DAUGHTER NOW OR HOW MANY YEARS AGO THE PATIENT BELIEVES THIS HAPPENED. THIS MAKES THE PATIENT EMOTIONAL, TALKING ABOUT HER DAUGHTERS. SHE STATED THAT PRIOR TO HER HOSPITAL ADMISSION THAT HER DAUGHTERS HAD ARRANGED AN INTERVENTION ON HER ABOUT HER METNAL HEALTH, THIS ALSO SEEMS TO BOTHER THE PATIENT. NURSE WILL CONTINUE TO MONITOR.
--- NOTE | 2020-10-11 13:48 | PM.PN ---
Subjective Subjective: Interval history: No episodes of agitation or confusion overnight, she is wondering why she cannot have a brain biopsy to evaluate for Alzheimer's, alert oriented x3, Vitals/I&O/Wt Last Vital Signs Temp 97.7 F 10/11/20 12:00 Pulse 90 10/11/20 12:00 Resp 18 10/11/20 12:00 BP 137/75 10/11/20 12:00 Pulse Ox 97 10/11/20 12:00 10/10/20 10/11/20 10/11/20 22:59 06:59 14:59 Intake Total 730 / 1570 200 / 1770 600 / 600 Output Total 600 / 600 Balance 730 / 1570 200 / 1770 0 / 0 Physical Exam Const: COMMON NORMALS: no acute distress and patient oriented x3 HENMT: COMMON NORMALS: normocephalic HEAD & SCALP: normocephalic Neck/C-Spine: COMMON NORMALS: no JVD Resp: COMMON NORMALS: normal respiratory effort, No retractions, No use of accessory muscles and clear to auscultation bilaterally AUSCULTATION: clear to auscultation bilaterally Cardio: COMMON NORMALS: no JVD, regular rate, regular rhythm, S1 normal heart sound present and S2 normal heart sound present RATE: regular rate RHYTHM: regular rhythm HEART SOUNDS: S1 normal heart sound present and S2 normal heart sound present GI: COMMON NORMALS: Normal to inspection, nondistended, normoactive bowel sounds present, Soft to palpation, non-tender, No hepatosplenomegaly present, no masses and no bruits PALPATION: Yes Soft to palpation and Yes No hepatosplenomegaly present Extremity: COMMON NORMALS: capillary refill normal, no clubbing, cyanosis or edema, no calf tenderness and no pedal edema Neuro: COMMON NORMALS: patient oriented x3 Psych: COMMON NORMALS: mental status grossly normal Data : 10/11/20 03:17 10/11/20 03:17 A&P Assessment and plan (1) Multiple falls: Status: Acute (2) Altered mental status: Status: Acute Qualifiers: Altered mental status type: unspecified Qualified Code(s): R41.82 - Altered mental status, unspecified (3) Peripheral neuropathy: Status: Acute (4) GERD (gastroesophageal reflux disease): Status: Acute (5) Cognitive impairment: Status: Acute (6) Hypokalemia: Status: Acute Additional A&P Information Altered mental status Patient is currently awake alert and oriented x3, much more alert awake, does have significant episodes of confusion during conversation On previous admission she did well after antibiotic regimen for UTI however at this time CBC BMP urinalysis unremarkable except hypokalemia. As such less likely to have metabolic encephalopathy, concern for acute psychosis CT head unremarkable MRI of the brain shows mild age-related changes No signs of stroke or meningitis, no signs of sepsis Her antipsychotic & anxiolytics were also changed on last visit and dosages were decreased Psychiatry consult with Dr. Gonzales to assess for psychosis versus dementia, awaiting on consult Zyprexa for anxiety episodes Hypokalemia: Repleted with 40 mEq p.o. and 40 mEq of IV potassium, recheck with a.m. labs. Multiple falls I am not sure about the cause she is not depicting any signs of stroke, cauda equina syndrome or UTI she does have history of neuropathy PT OT eval Full code Cardiac diet DVT prophylaxis SCDs I would avoid anticoagulation because of her neuropathy and recurrent falls Attestations Medical Necessity Statement*: She requires hospitalization due to altered mental status likely related to acute on chronic dementia, multiple falls, awaiting psychiatric evaluation Coding Level of Care Code Acute Senior Field Engineer for Miguel Fwd Diagnoses Multiple falls R29.6 Altered mental status R41.82 Altered mental status type: unspecified Peripheral neuropathy G62.9 GERD (gastroesophageal reflux disease) K21.9 Cognitive impairment R41.89 Hypokalemia E87.6
[2020-10-11] MEDS: OLANZapine 5 mg ODT PO (20:59)
[2020-10-12] VITALS (17 sets, daily range): BP systolic 102–157; BP diastolic 71–92; PULSE 99–115; RESP 11–26; TEMP 35.8–36.9; O2SAT 97–99
[2020-10-12] MEDS: tizanidine 4 mg Tablet 2 MG PO ×2 (03:09→20:54)
[2020-10-12] MEDS: dilTIAZem ER (24HR) 240 mg Capsule PO (09:08)
[2020-10-12] MEDS: aspirin 81 mg EC Tablet PO (09:08)
[2020-10-12] MEDS: clopidogrel 75 mg Tablet PO (09:08)
[2020-10-12] MEDS: atorvastatin 40 mg Tablet PO (09:09)
[2020-10-12] MEDS: amlodipine 10 mg Tablet PO (09:09)
[2020-10-12] MEDS: gabapentin 300 mg Capsule PO ×3 (09:09→20:53)
[2020-10-12] MEDS: losartan 50 mg Tablet PO (09:09)
--- NOTE | 2020-10-12 12:22 | PM.PN ---
Subjective Subjective: Interval history: This morning patient was examined, according to nursing staff she was up awake all night until about 5 AM, she finally got to sleep, this morning she was arousable, she tells me she has no complaints, wants to go back to sleep Vitals/I&O/Wt Last Vital Signs Temp 96.5 F L 10/12/20 10:11 Pulse 107 H 10/12/20 10:11 Resp 16 10/12/20 10:11 BP 142/78 10/12/20 10:11 Pulse Ox 97 10/12/20 00:15 10/11/20 10/12/20 10/12/20 22:59 06:59 14:59 Intake Total 240 / 840 360 / 360 Balance 240 / 240 360 / 360 Physical Exam Const: COMMON NORMALS: no acute distress HENMT: COMMON NORMALS: normocephalic HEAD & SCALP: normocephalic Neck/C-Spine: COMMON NORMALS: no JVD Resp: COMMON NORMALS: normal respiratory effort, No retractions, No use of accessory muscles and clear to auscultation bilaterally AUSCULTATION: clear to auscultation bilaterally Cardio: COMMON NORMALS: no JVD, regular rate, regular rhythm, S1 normal heart sound present and S2 normal heart sound present RATE: regular rate RHYTHM: regular rhythm HEART SOUNDS: S1 normal heart sound present and S2 normal heart sound present GI: COMMON NORMALS: Normal to inspection, nondistended, normoactive bowel sounds present, Soft to palpation, non-tender, No hepatosplenomegaly present, no masses and no bruits PALPATION: Yes Soft to palpation and Yes No hepatosplenomegaly present Extremity: COMMON NORMALS: capillary refill normal, no clubbing, cyanosis or edema, no calf tenderness and no pedal edema Data : 10/11/20 03:17 10/11/20 03:17 A&P Assessment and plan (1) Multiple falls: Status: Acute (2) Altered mental status: Status: Acute Qualifiers: Altered mental status type: unspecified Qualified Code(s): R41.82 - Altered mental status, unspecified (3) Peripheral neuropathy: Status: Acute (4) GERD (gastroesophageal reflux disease): Status: Acute (5) Cognitive impairment: Status: Acute (6) Hypokalemia: Status: Acute Additional A&P Information Altered mental status Patient is currently awake alert and oriented x3, much more alert awake, does have significant episodes of confusion during conversation On previous admission she did well after antibiotic regimen for UTI however at this time CBC BMP urinalysis unremarkable except hypokalemia. As such less likely to have metabolic encephalopathy, concern for acute psychosis CT head unremarkable MRI of the brain shows mild age-related changes No signs of stroke or meningitis, no signs of sepsis Her antipsychotic & anxiolytics were also changed on last visit and dosages were decreased Psychiatry consult with Dr. Gonzales to assess for psychosis versus dementia, awaiting on consult Zyprexa for anxiety episodes Discharge planning, patient is at high risk to go back to assisted living facility, options for her is to live with her family or go to geriatric facility or long-term, awaiting family decision Hypokalemia: Monitor Multiple falls I am not sure about the cause she is not depicting any signs of stroke, cauda equina syndrome or UTI she does have history of neuropathy PT OT eval Full code Cardiac diet DVT prophylaxis SCDs I would avoid anticoagulation because of her neuropathy and recurrent falls Attestations Medical Necessity Statement*: Requires hospitalization for dementia, multiple falls, Coding Level of Care Code Acute Services Tech for g Fwd Diagnoses Multiple falls R29.6 Altered mental status R41.82 Altered mental status type: unspecified Peripheral neuropathy G62.9 GERD (gastroesophageal reflux disease) K21.9 Cognitive impairment R41.89 Hypokalemia E87.6
[2020-10-12 12:35] LABS: Basophils % 0.4 %; Eosinophils # 0.4 10^3/uL (0.0-0.8); Eosinophils % 3.8 %; Hematocrit 43.2 % (37.0-47.0); Hemoglobin 13.4 g/dL (11.5-15.3); Lymphocytes # 2.9 10^3/uL (0.8-4.8); Lymphocytes % 27.5 %; Mean Corpuscular Hemoglobin 29.8 pg (28.0-34.0); Mean Platelet Volume 11.9 fL (7.4-10.4); Monocytes # 0.8 10^3/uL (0.2-0.9); Monocytes % 7.2 %; Neutrophils # 6.32 10^3/uL (1.8-7.7); Neutrophils % 60.9 %; Nucleated Red Blood Cells % 0 %; Platelet Count 260 10^3/cmm (130-400); Red Cell Distribution Width 14.8 % (12.1-15.1); White Blood Count 10.4 10^3/uL (4.0-10.0)
[2020-10-12 12:53] LABS: Alanine Aminotransferase 11 U/L (0-33); Albumin Level 4.5 g/dL (3.5-5.2); Alkaline Phosphatase 84 IU/L (35-105); Anion Gap 15.7 (5-19); Aspartate Amino Transferase 14 U/L (0-32); Blood Urea Nitrogen 20 mg/dL (8-23); Carbon Dioxide 27 mmol/L (22-29); Chloride 103 mmol/L (98-107); Globulin 2.5 g/dL (1.3-4.6); Glucose 133 mg/dL (65-115); Magnesium 1.7 mg/dL (1.7-2.3); Osmolality Calculated 299 mOsm/kg (285-295); Potassium 3.7 mmol/L (3.5-5.1); Sodium 142 mmol/L (136-145); Total Bilirubin 0.5 mg/dL (0.15-1.2)
[2020-10-12] MEDS: OLANZapine 5 mg ODT PO (20:54)
--- NOTE | 2020-10-12 21:03 | PC.NURSE ---
SITTING ON SIDE OF BED TALKING WITH 1-1 SITTER. APPEARS CONFUSED AT TIMES, DENIES WANTING TO HARM SELF.. TOOK PM MEDS WITH NO PROBLEMS. GAVE ZANAFLEX 2 MG PO FOR MUSCLE SPASMS.
[2020-10-12] MEDS: TRAMadol 50 mg Tablet PO (23:00)
--- NOTE | 2020-10-12 23:32 | PC.NURSE ---
TRAMADOL 50 MG PO GIVEN FOR ACHING ALL MANOJ. WAITING ON HEMMOROID CREAM TO BE BROUGHT TO UNIT FROM PHARMACY.
[2020-10-13] VITALS (11 sets, daily range): BP systolic 92–143; BP diastolic 55–95; PULSE 70–107; RESP 16–21; TEMP 35.9–36.8; O2SAT 92–97
[2020-10-13 04:05] LABS: Basophils % 0.4 %; Eosinophils # 0.4 10^3/uL (0.0-0.8); Eosinophils % 3.3 %; Hematocrit 36.7 % (37.0-47.0); Hemoglobin 11.6 g/dL (11.5-15.3); Lymphocytes # 3.6 10^3/uL (0.8-4.8); Lymphocytes % 33.6 %; Mean Corpuscular HGB Conc 31.6 g/dL (30.0-36.0); Mean Corpuscular Hemoglobin 30.5 pg (28.0-34.0); Mean Corpuscular Volume 96.6 fL (81-99); Mean Platelet Volume 11.9 fL (7.4-10.4); Monocytes # 0.8 10^3/uL (0.2-0.9); Monocytes % 7.4 %; Neutrophils # 5.97 10^3/uL (1.8-7.7); Neutrophils % 55.1 %; Nucleated Red Blood Cells % 0 %; Platelet Count 236 10^3/cmm (130-400); Red Cell Distribution Width 14.6 % (12.1-15.1); White Blood Count 10.8 10^3/uL (4.0-10.0)
[2020-10-13 04:39] LABS: Alanine Aminotransferase 11 U/L (0-33); Albumin Level 3.6 g/dL (3.5-5.2); Alkaline Phosphatase 86 IU/L (35-105); Anion Gap 12.4 (5-19); Aspartate Amino Transferase 12 U/L (0-32); Blood Urea Nitrogen 26 mg/dL (8-23); Calcium 9.1 mg/dL (8.5-10.5); Carbon Dioxide 26 mmol/L (22-29); Chloride 107 mmol/L (98-107); Glucose 136 mg/dL (65-115); Magnesium 1.8 mg/dL (1.7-2.3); Osmolality Calculated 301 mOsm/kg (285-295); Phosphorus 3.5 mg/dL (2.5-4.5); Potassium 3.4 mmol/L (3.5-5.1); Sodium 142 mmol/L (136-145); Total Bilirubin 0.3 mg/dL (0.15-1.2); Total Protein 5.6 g/dL (6.6-8.7)
[2020-10-13] MEDS: dilTIAZem ER (24HR) 240 mg Capsule PO (08:37)
[2020-10-13] MEDS: aspirin 81 mg EC Tablet PO (08:37)
[2020-10-13] MEDS: clopidogrel 75 mg Tablet PO (08:37)
[2020-10-13] MEDS: atorvastatin 40 mg Tablet PO (08:37)
[2020-10-13] MEDS: losartan 50 mg Tablet PO (08:37)
[2020-10-13] MEDS: gabapentin 300 mg Capsule PO ×3 (08:38→20:09)
[2020-10-13] MEDS: amlodipine 10 mg Tablet PO (08:38)
--- NOTE | 2020-10-13 13:00 | PC.NURSE ---
Dr. Gonzales at bedside to evaluate patient.
--- NOTE | 2020-10-13 13:33 | PC.SOCIAL ---
IMM Updated Updated pt on Pg 2 IMM. No questions voiced. Provided pt a copy Signed, dated,& timed copy in chart.
--- NOTE | 2020-10-13 14:09 | P.PN_ITS ---
Subjective Subjective: Interval history: Patient was evaluated this morning, she has no complaints, she is alert to person, place, time, no episodes of confusion overnight, she actually was awake all night, and finally fell asleep at 5, she tells me that she has severe insomnia, she has used Ambien in the past which has worked Vitals/I&O/Wt Last Vital Signs Temp 96.6 F L 10/13/20 08:00 Pulse 100 10/13/20 11:16 Resp 21 H 10/13/20 11:16 BP 143/77 10/13/20 11:16 Pulse Ox 97 10/13/20 11:16 10/12/20 10/13/20 10/13/20 22:59 06:59 14:59 Intake Total 240 / 840 480 / 480 Output Total 0 / 0 Balance 240 / 840 -3 / 837 480 / 480 Physical Exam Const: COMMON NORMALS: no acute distress and patient oriented x3 HENMT: COMMON NORMALS: normocephalic HEAD & SCALP: normocephalic Neck/C-Spine: COMMON NORMALS: no JVD Resp: COMMON NORMALS: normal respiratory effort, No retractions, No use of accessory muscles and clear to auscultation bilaterally AUSCULTATION: clear to auscultation bilaterally Cardio: COMMON NORMALS: no JVD, regular rate, regular rhythm, S1 normal heart sound present and S2 normal heart sound present RATE: regular rate RHYTHM: regular rhythm HEART SOUNDS: S1 normal heart sound present and S2 normal heart sound present GI: COMMON NORMALS: Normal to inspection, nondistended, normoactive bowel sounds present, Soft to palpation, non-tender, No hepatosplenomegaly present, no masses and no bruits PALPATION: Yes Soft to palpation and Yes No hepato splenomegaly present Extremity: COMMON NORMALS: capillary refill normal, no clubbing, cyanosis or edema, no calf tenderness and no pedal edema Neuro: COMMON NORMALS: patient oriented x3 Psych: COMMON NORMALS: mental status grossly normal Data : 10/13/20 03:01 10/13/20 03:01 A&P Assessment and plan (1) Multiple falls: Status: Acute (2) Altered mental status: Status: Acute Qualifiers: Altered mental status type: unspecified Qualified Code(s): R41.82 - Altered mental status, unspecified (3) Peripheral neuropathy: Status: Acute (4) GERD (gastroesophageal reflux disease): Status: Acute (5) Cognitive impairment: Status: Acute (6) Hypokalemia: Status: Acute Additional A&P Information Altered mental status, intermittent, currently resolved Patient is currently awake alert and oriented x3, much more alert awake, does have significant episodes of confusion during conversation On previous admission she did well after antibiotic regimen for UTI however at this time CBC BMP urinalysis unremarkable except hypokalemia. As such less likely to have metabolic encephalopathy, concern for acute psychosis CT head unremarkable MRI of the brain shows mild age-related changes No signs of stroke or meningitis, no signs of sepsis Her antipsychotic & anxiolytics were also changed on last visit and dosages were decreased Psychiatry consult with Dr. Gonzales to assess for psychosis versus dementia, awaiting on consult Zyprexa for anxiety episodes Start Ambien for insomnia Discharge planning, patient is at high risk to go back to assisted living facility, options for her is to live with her family or go to geriatric facility or alf, awaiting family decision Hypokalemia: Monitor Multiple falls I am not sure about the cause she is not depicting any signs of stroke, cauda equina syndrome or UTI she does have history of neuropathy PT OT eval Full code Cardiac diet DVT prophylaxis SCDs I would avoid anticoagulation because of her neuropathy and recurrent falls Attestations Medical Necessity Statement*: Patient course hospitalization for altered mental status, worsening dementia, multiple falls Coding Level of Care Code Acute Pipe Fitter Supervisor Maintenance for Miguel Fwd Diagnoses Multiple falls R29.6 Altered mental status R41.82 Altered mental status type: unspecified Peripheral neuropathy G62.9 GERD (gastroesophageal reflux disease) K21.9 Cognitive impairment R41.89 Hypokalemia E87.6
[2020-10-13] MEDS: artificial tears Op Soln 15 mL Btl 1 DROP EYE-BOTH (15:03)
[2020-10-13] MEDS: phenyleph-mineral oil-petrolat Oint 28 gm 1 APPLIC TOPICAL ×2 (17:12→20:09)
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
--- NOTE | 2020-10-13 18:50 | PC.NURSE ---
Received report from ARUN Bell. Patient resting in bed reading. 1:1 sitter at bedside. Patient reports only sleep a total of one hour over the last day and is requesting medications to help. Reassured patient that her medications have been ordered and discussed these. Patient verbalized understanding. Assessment completed as documented.
[2020-10-13] MEDS: zolpidem 5 mg Tablet PO (20:09)
[2020-10-13] MEDS: OLANZapine 5 mg ODT PO (20:09)
[2020-10-13] MEDS: tizanidine 4 mg Tablet 2 MG PO (20:12)
[2020-10-14] VITALS (7 sets, daily range): BP systolic 110–146; BP diastolic 64–89; PULSE 91–115; RESP 14–21; TEMP 36–36.6; O2SAT 95–97
[2020-10-14 04:50] LABS: Basophils % 0.4 %; Eosinophils # 0.4 10^3/uL (0.0-0.8); Eosinophils % 4.9 %; Hematocrit 36.2 % (37.0-47.0); Hemoglobin 11.2 g/dL (11.5-15.3); Lymphocytes % 35.2 %; Mean Corpuscular HGB Conc 30.9 g/dL (30.0-36.0); Mean Corpuscular Hemoglobin 29.6 pg (28.0-34.0); Mean Corpuscular Volume 95.5 fL (81-99); Mean Platelet Volume 12.1 fL (7.4-10.4); Monocytes # 0.7 10^3/uL (0.2-0.9); Monocytes % 7.7 %; Neutrophils # 4.41 10^3/uL (1.8-7.7); Neutrophils % 51.4 %; Nucleated Red Blood Cells % 0 %; Platelet Count 237 10^3/cmm (130-400); Red Blood Count 3.79 10^6/uL (4.1-5.3); Red Cell Distribution Width 14.7 % (12.1-15.1); White Blood Count 8.6 10^3/uL (4.0-10.0)
[2020-10-14 05:13] LABS: Alanine Aminotransferase 10 U/L (0-33); Albumin Level 3.3 g/dL (3.5-5.2); Alkaline Phosphatase 77 IU/L (35-105); Anion Gap 13.6 (5-19); Aspartate Amino Transferase 11 U/L (0-32); Blood Urea Nitrogen 24 mg/dL (8-23); Calcium 8.8 mg/dL (8.5-10.5); Carbon Dioxide 24 mmol/L (22-29); Chloride 108 mmol/L (98-107); Globulin 2.2 g/dL (1.3-4.6); Glucose 117 mg/dL (65-115); Magnesium 1.8 mg/dL (1.7-2.3); Osmolality Calculated 299 mOsm/kg (285-295); Phosphorus 3.2 mg/dL (2.5-4.5); Potassium 3.6 mmol/L (3.5-5.1); Sodium 142 mmol/L (136-145); Total Bilirubin 0.3 mg/dL (0.15-1.2); Total Protein 5.5 g/dL (6.6-8.7)
[2020-10-14] MEDS: amlodipine 10 mg Tablet PO (09:17)
[2020-10-14] MEDS: aspirin 81 mg EC Tablet PO (09:18)
[2020-10-14] MEDS: losartan 50 mg Tablet PO (09:18)
[2020-10-14] MEDS: clopidogrel 75 mg Tablet PO (09:18)
[2020-10-14] MEDS: gabapentin 300 mg Capsule PO ×3 (09:18→20:32)
[2020-10-14] MEDS: atorvastatin 40 mg Tablet PO (09:18)
[2020-10-14] MEDS: dilTIAZem ER (24HR) 240 mg Capsule PO (09:18)
[2020-10-14] MEDS: doxycycline 100 mg Tablet PO ×2 (09:20→17:22)
[2020-10-14] MEDS: phenyleph-mineral oil-petrolat Oint 28 gm 1 APPLIC TOPICAL (14:43)
--- NOTE | 2020-10-14 16:30 | PM.PN ---
Subjective Subjective: Interval history: This morning patient was examined, she sitting up to the edge of the bed, enjoying breakfast, alert to person, place, time, has no particular complaints, awaiting placement to shelter, Dr. Gonzales is seeing her Vitals/I&O/Wt Last Vital Signs Temp 96.8 F L 10/14/20 16:00 Pulse 104 H 10/14/20 16:00 Resp 21 H 10/14/20 16:00 BP 146/73 10/14/20 16:00 Pulse Ox 96 10/14/20 16:00 10/14/20 10/14/20 10/14/20 06:59 14:59 22:59 Intake Total 240 / 240 Balance 240 / 240 Physical Exam Const: COMMON NORMALS: no acute distress and patient oriented x3 HENMT: COMMON NORMALS: normocephalic HEAD & SCALP: normocephalic Neck/C-Spine: COMMON NORMALS: no JVD Resp: COMMON NORMALS: normal respiratory effort, No retractions, No use of accessory muscles and clear to auscultation bilaterally AUSCULTATION: clear to auscultation bilaterally Cardio: COMMON NORMALS: no JVD, regular rate, regular rhythm, S1 normal heart sound present and S2 normal heart sound present RATE: regular rate RHYTHM: regular rhythm HEART SOUNDS: S1 normal heart sound present and S2 normal heart sound present GI: COMMON NORMALS: Normal to inspection, nondistended, normoactive bowel sounds present, Soft to palpation, non-tender, No hepatosplenomegaly present, no masses and no bruits PALPATION: Yes Soft to palpation and Yes No hepatosplenomegaly present Extremity: COMMON NORMALS: capillary refill normal, no clubbing, cyanosis or edema, no calf tenderness and no pedal edema Neuro: COMMON NORMALS: patient oriented x3 Psych: COMMON NORMALS: mental status grossly normal Data : 10/14/20 03:25 10/14/20 03:25 A&P Assessment and plan (1) Multiple falls: Status: Acute (2) Altered mental status: Status: Acute Qualifiers: Altered mental status type: unspecified Qualified Code(s): R41.82 - Altered mental status, unspecified (3) Peripheral neuropathy: Status: Acute (4) GERD (gastroesophageal reflux disease): Status: Acute (5) Cognitive impairment: Status: Acute (6) Hypokalemia: Status: Acute Additional A&P Information Altered mental status, intermittent, currently resolved Patient is currently awake alert and oriented x3, much more alert awake, during the last few days she did have episodes of confusion during conversations, but now those episodes of confusions have resolved Patient has chronic insomnia, she typically does not sleep till very late, this was evident on the last few days she was up till 5 in mood sleep during the day, become more confused,i am wondering if she has REM sleep disorder, she with Ambien she was able to sleep 11 hours, is very restful last night, is quite restful quite restful On previous admission she did well after antibiotic regimen for UTI however at this time CBC BMP urinalysis unremarkable except hypokalemia. As such less likely to have metabolic encephalopathy, concern for acute psychosis CT head unremarkable MRI of the brain shows mild age-related changes No signs of stroke or meningitis, no signs of sepsis Her antipsychotic & anxiolytics were also changed on last visit and dosages were decreased Psychiatry consult with Dr. Gonzales to assess for psychosis versus dementia, awaiting on consult Zyprexa for anxiety episodes Start Ambien for insomnia Discharge planning, patient is at high risk to go back to assisted living facility, options for her is to live with her family or go to geriatric facility or shelter, awaiting family decision Hypokalemia: Monitor Multiple falls I am not sure about the cause she is not depicting any signs of stroke, cauda equina syndrome or UTI she does have history of neuropathy PT OT eval Full code Cardiac diet DVT prophylaxis SCDs I would avoid anticoagulation because of her neuropathy and recurrent falls Attestations Medical Necessity Statement*: Patient requires hospitalization for altered mental status, now resolved, awaiting shelter placement, for dementia, REM sleep disorder Coding Level of Care Code Acute Criminal Justice Lawyer for Chg Fwd Diagnoses Multiple falls R29.6 Altered mental status R41.82 Altered mental status type: unspecified Peripheral neuropathy G62.9 GERD (gastroesophageal reflux disease) K21.9 Cognitive impairment R41.89 Hypokalemia E87.6
[2020-10-14] MEDS: OLANZapine 5 mg ODT PO (20:32)
[2020-10-14] MEDS: zolpidem 5 mg Tablet PO (20:32)
[2020-10-14] MEDS: tizanidine 4 mg Tablet 2 MG PO (20:35)
[2020-10-15 03:27] VITALS: BP 143/69; PULSE 96; RESP 18; O2SAT 93
[2020-10-15 03:52] LABS: Basophils % 0.4 %; Eosinophils # 0.4 10^3/uL (0.0-0.8); Eosinophils % 4.1 %; Hematocrit 34.6 % (37.0-47.0); Hemoglobin 10.8 g/dL (11.5-15.3); Mean Corpuscular HGB Conc 31.2 g/dL (30.0-36.0); Mean Corpuscular Volume 96.1 fL (81-99); Mean Platelet Volume 11.8 fL (7.4-10.4); Monocytes # 0.8 10^3/uL (0.2-0.9); Monocytes % 8.6 %; Neutrophils % 54.7 %; Nucleated Red Blood Cells % 0 %; Platelet Count 213 10^3/cmm (130-400); Red Cell Distribution Width 14.5 % (12.1-15.1); White Blood Count 9.3 10^3/uL (4.0-10.0)
--- NOTE | 2020-10-15 04:20 | PC.NURSE ---
Addendum entered by Ashley Ward RN 10/15/20 04:21: Dr Harris placed order. Original Note: Patient c/o headache this morning and requesting something for this pain. Informed Dr Harris and received order for Tylenol 650mg PO x 1 dose now. RBVO
[2020-10-15 04:21] LABS: Alanine Aminotransferase 10 U/L (0-33); Albumin Level 3.3 g/dL (3.5-5.2); Alkaline Phosphatase 79 IU/L (35-105); Anion Gap 11.8 (5-19); Aspartate Amino Transferase 13 U/L (0-32); Blood Urea Nitrogen 23 mg/dL (8-23); Carbon Dioxide 26 mmol/L (22-29); Chloride 108 mmol/L (98-107); Globulin 2.1 g/dL (1.3-4.6); Glucose 105 mg/dL (65-115); Magnesium 1.7 mg/dL (1.7-2.3); Osmolality Calculated 298 mOsm/kg (285-295); Phosphorus 3.2 mg/dL (2.5-4.5); Potassium 3.8 mmol/L (3.5-5.1); Sodium 142 mmol/L (136-145); Total Bilirubin 0.3 mg/dL (0.15-1.2); Total Protein 5.4 g/dL (6.6-8.7)
[2020-10-15] MEDS: acetaminophen 325 mg Tablet PO (04:23)
[2020-10-15 08:00] VITALS: BP 120/76; PULSE 106; RESP 26; TEMP 36.1; O2SAT 98
[2020-10-15 09:07] VITALS: BP 120/76
[2020-10-15] MEDS: losartan 50 mg Tablet PO (09:07)
[2020-10-15] MEDS: doxycycline 100 mg Tablet PO (09:07)
[2020-10-15] MEDS: aspirin 81 mg EC Tablet PO (09:08)
[2020-10-15] MEDS: dilTIAZem ER (24HR) 240 mg Capsule PO (09:08)
[2020-10-15] MEDS: atorvastatin 40 mg Tablet PO (09:08)
[2020-10-15] MEDS: amlodipine 10 mg Tablet PO (09:08)
[2020-10-15] MEDS: gabapentin 300 mg Capsule PO (09:08)
[2020-10-15] MEDS: clopidogrel 75 mg Tablet PO (09:08)
[2020-10-15] MEDS: phenyleph-mineral oil-petrolat Oint 28 gm 1 APPLIC TOPICAL (09:08)
--- NOTE | 2020-10-15 10:15 | PM.DCS ---
Discharge Providers Date of Admission: 10/08/20 06:35 Date of Discharge: October 15, 2020 Attending Provider at Admission: Dangelo Harris MD Attending Provider at Discharge: Moe Vines MD Diagnoses at Discharge Discharge Diagnosis (1) Altered mental status: Status: Acute Qualifiers: Altered mental status type: unspecified Qualified Code(s): R41.82 - Altered mental status, unspecified (2) Insomnia: Status: Acute (3) Depression: Status: Acute (4) Anxiety: Status: Acute (5) Bereavement: Status: Acute Reason for Visit Reason for Visit: [facility] Hospital Course Hospital Course This is a 80-year-old female with past medical history of transient ischemic attack, peripheral arterial disease on aspirin and Plavix, peripheral neuropathy, hypertension, hyperlipidemia, who presents to [facility] for recurrent falls, confusion, altered mental status Recurrent falls, PT OT evaluation, did well clinically, given risk of falls and significant risk of bleeding, I have de-escalating her antiplatelet therapy to aspirin 81 mg daily, and I have stopped Plavix For altered mental status, likely multifactorial related to dementia and REM sleep disorder, CT of the head was unremarkable, MRI of the brain showed age-related changes, blood cultures have been unremarkable, urine cultures have been unremarkable, blood work was unremarkable, she has received multiple antibiotic courses for UTIs without any significant improvement. After a few days of inpatient monitoring and restful, she returned back to baseline, alert oriented x3, answering all questions appropriately. I will have patient follow-up with Dr. Cao as outpatient for further dementia evaluation. Patient was discharged to [facility] senior care Patient's hemoglobin on discharge was 10.8, as above we will continue aspirin 81 mg, I have discontinued the Plavix, no CAD history, repeat hemoglobin in 1 week, monitor for bloody black stools. Physical Exam Const: COMMON NORMALS: no acute distress and patient oriented x3 HENMT: COMMON NORMALS: normocephalic HEAD & SCALP: normocephalic Neck/C-Spine: COMMON NORMALS: no JVD Resp: COMMON NORMALS: normal respiratory effort, No retractions, No use of accessory muscles and clear to auscultation bilaterally AUSCULTATION: clear to auscultation bilaterally Cardio: COMMON NORMALS: no JVD, regular rate, regular rhythm, S1 normal heart sound present and S2 normal heart sound present RATE: regular rate RHYTHM: regular rhythm HEART SOUNDS: S1 normal heart sound present and S2 normal heart sound present GI: COMMON NORMALS: Normal to inspection, nondistended, normoactive bowel sounds present, Soft to palpation, non-tender, No hepatosplenomegaly present, no masses and no bruits PALPATION: Yes Soft to palpation and Yes No hepatosplenomegaly present Extremity: COMMON NORMALS: capillary refill normal, no clubbing, cyanosis or edema, no calf tenderness and no pedal edema Neuro: COMMON NORMALS: patient oriented x3 Psych: COMMON NORMALS: mental status grossly normal Discharge Data Data Completed and Pending: Completed Studies During Hospitalization Category Date Time Status CT cervical spin wo con* [id number] Urge nt Cat Scan 10/07/20 04:[address] head wo con* [id number] Urgent Cat Scan 10/07/20 04:22 Completed XR chest 1V bhumi ble [id number] Urgent Exams 10/07/20 04:22 Completed XR hip RT 2-3V wo /w pel* [id number] Stat Exams 10/07/20 04:22 Completed MR head wo con* [id number] Routine MRI 10/09/20 09:37 Completed Pending at discharge Category Date Time Status Complete Blood Co unt w/Auto AM LABS Lab 10/16/20 04:00 Ordered Complete Blood Co unt w/Auto AM LABS Lab 10/17/20 04:00 Ordered Comprehensive Met abolic Panel AM LA BS Lab 10/16/20 04:00 Ordered Comprehensive Met abolic Panel AM LA BS Lab 10/17/20 04:00 Ordered Magnesium AM LABS Lab 10/16/20 04:00 Ordered Magnesium AM LABS Lab 10/17/20 04:00 Ordered Phosphorus AM LAB S Lab 10/16/20 04:00 Ordered Phosphorus AM LAB S Lab 10/17/20 04:00 Ordered SARS Covid-2 Anti gen Stat Lab 10/15/20 09:30 Received Labs from last 24 hours 10/15/20 10/15/20 10/15/20 09:30 03:10 03:10 WBC 9.3 RBC 3.60 L Hgb 10.8 L Hct 34.6 L MCV 96.1 MCH 30.0 MCHC 31.2 RDW 14.5 Plt Count 213 MPV 11.8 H Neut % (Auto) 54.7 Lymph % (Auto) 32.0 Coffee % (Auto) 8.6 Eos % (Auto) 4.1 Baso % (Auto) 0.4 Neut # (Auto) 5.10 Lymph # (Auto) 3.0 Coffee # (Auto) 0.8 Eos # (Auto) 0.4 Baso # (Auto) 0.0 Nucleated RBC % (a uto) 0 Nucleated RBCs # 0.0 Sodium 142 Potassium 3.8 Chloride 108 H Carbon Dioxide 26 Anion Gap 11.8 BUN 23 Creatinine 0.7 GFR Calculation Not Reportable Glucose 105 Calculated Osmolal ity 298 H Calcium 9.0 Phosphorus 3.2 Magnesium 1.7 Total Bilirubin 0.3 AST 13 ALT 10 Alkaline Phosphata se 79 Total Protein 5.4 L Albumin 3.3 L Globulin 2.1 SARS-CoV-2 Ag (Rap id) Pending Vitals: Last Vital Signs Temp 96.9 F L 10/15/20 08:00 Pulse 106 H 10/15/20 08:00 Resp 26 H 10/15/20 08:00 BP 120/76 10/15/20 09:07 Pulse Ox 98 10/15/20 08:00 Discharge Plan Discharge Patient Disposition: Home Condition: Stable Prescriptions: New gabapentin 300 mg Capsule 300 mg PO TID 30 Days Qty: 90 RF: 0 olanzapine 5 mg Tablet,Disintegrating 5 mg PO BEDTIME 30 Days Qty: 30 RF: 0 Isopto Tears 0.5 % Drops 1 drp eye-both Q4H PRN (Reason: Dry Eye(S)) Qty: 15 RF: 0 Continued atorvastatin 40 mg Tablet 40 mg PO DAILY RF: 0 diltiazem HCl 240 mg Capsule,Extended Release 24 Hr 240 mg PO DAILY RF: 0 zolpidem 10 mg Tablet 10 mg PO BEDTIME PRN (Reason: Insomnia) RF: 0 omeprazole magnesium [Prilosec OTC] 20 mg Tablet,Delayed Release (Dr/Ec) 40 mg PO DAILY RF: 0 ondansetron HCl [Zofran] 4 mg Tablet 4 mg PO Q8H PRN (Reason: Nausea) RF: 0 tramadol [Ultram] 50 mg Tablet 50 - 100 mg PO TID PRN (Reason: Pain) RF: 0 alprazolam 0.5 mg Tablet 0.5 mg PO BID PRN (Reason: Anxiety) RF: 0 tizanidine [Zanaflex] 2 mg Capsule 2 mg PO TID PRN (Reason: muscle spams) RF: 0 Viibryd 40 mg Tablet 40 mg PO DAILY RF: 0 losartan 50 mg Tablet 50 mg PO DAILY 30 Days Qty: 30 RF: 0 aspirin 81 mg tablet,delayed release (DR/EC) 81 mg PO DAILY 30 Days Qty: 30 RF: 0 hydrochlorothiazide 25 mg tablet 25 mg PO DAILY 30 Days Qty: 30 RF: 0 doxycycline hyclate 100 mg tablet 100 mg PO BID 7 Days Qty: 14 RF: 0 Changed clonidine HCl 0.1 mg Tablet 0.1 mg PO BID PRN (Reason: FOR SBP>180 or DBP>90) 30 Days Qty: 60 RF: 0 Discontinued clopidogrel 75 mg Tablet 75 mg PO DAILY RF: 0 gabapentin 600 mg tablet 1,200 mg PO TID RF: 0 amlodipine 10 mg Tablet 10 mg PO DAILY 30 Days Qty: 30 RF: 0 metoprolol tartrate 25 mg Tablet 25 mg PO BID 30 Days Qty: 60 RF: 0 cephalexin [Keflex] 500 mg capsule 500 mg PO BID 7 Days Qty: 14 RF: 0 Discharge Orders: Discharge Order (Routine); Ordered 10/15/20 Ordered By: Moe Vines Other Ambulatory Orders: Complete Blood Count w/Auto (Routine) Timeframe: 1 Week Location: Determined by Patient Ordered By: Moe Vines Sleep Study W Sleep Stage (Routine) Timeframe: 1 Month Location: None Selected Ordered By: Moe Vines Referrals: Aminata Cao MD [Physician] - 1 month (dementia) Discharge Diet: Regular Discharge Activity: Resume usual activity Activity Restrictions/Additional Instructions: -Please follow-up with sleep study as prescribed -Follow-up with neurology for dementia assessment assessment Discharge Attestations Time Spent in Discharge Care*: less than 30 min Quality Metrics Clinical Quality Measures During this hospital stay, did patient experience: None Coding Level of Care Code Acute Intake Clinician for g Fwd Diagnoses Altered mental status R41.82 Altered mental status type: unspecified Insomnia G47.00 Depression F32.9 Anxiety F41.9 Bereavement Z63.4
[2020-10-15 10:24] LABS: SARS Covid-2 Antigen Negative (Negative)
[2020-10-15 10:31] VITALS: BP 120/76; PULSE 106; RESP 26; TEMP 36.1; O2SAT 98
[2020-10-15 11:56] VITALS: BP 129/85; PULSE 109; RESP 20; TEMP 35.6; O2SAT 97
[2020-10-15 12:39] VITALS: BP 129/85; PULSE 109; RESP 20; TEMP 35.6; O2SAT 97
--- NOTE | 2020-10-15 13:45 | PC.NURSE ---
report called to intermediate [facility]. transport set up with social media designer. when transport arrived patient ambulated to wheelchair, took her personal belongings and her packet with discharge instructions and then was taken to transport vehicle
== END 2020-10-15 12:58 | disposition intermediate care facility (04) | DRG 885 ==
LOC: ER 06:09 → CSU 06:24
PROVIDERS: Admitting Provider Internal Medicine; Emergency Provider Emergency Medicine; Visit Provider Family Medicine
DX: F23 Brief psychotic disorder (principal); G93.41 Metabolic encephalopathy; I10 Essential (primary) hypertension; E78.5 Hyperlipidemia, unspecified; F41.8 Other specified anxiety disorders; G47.00 Insomnia, unspecified; Z86.73 Personal history of transient ischemic attack (TIA), and cerebral infarction without residual deficits; I73.9 Peripheral vascular disease, unspecified; Z79.82 Long term (current) use of aspirin; Z79.02 Long term (current) use of antithrombotics/antiplatelets; G62.9 Polyneuropathy, unspecified; Z91.81 History of falling; F03.90 Unspecified dementia, unspecified severity, without behavioral disturbance, psychotic disturbance, mood disturbance, and anxiety; E87.6 Hypokalemia; K21.9 Gastro-esophageal reflux disease without esophagitis; Z63.4 Disappearance and death of family member; Z87.891 Personal history of nicotine dependence; Z62.810 Personal history of physical and sexual abuse in childhood; G89.29 Other chronic pain; M54.9 Dorsalgia, unspecified; Z85.828 Personal history of other malignant neoplasm of skin
CPT/HCPCS: 12345; 36415; 70450; 70551; 71045; 72125; 73502; 80053; 80306; 80307; 81003; 82607; 83735; 84100; 85025; 85610; 87426; 93005; 96372; 99283; G0378; J2060; J3480; J3486; J3490

== ENCOUNTER → 2020-11-19 11:23 | Outpatient (BNVA) | payer MEDICARE, MEDICAID, SELFPAY | PROVIDERS: PCP Family Medicine; Visit Provider Specialist | DX: G31.83 Neurocognitive disorder with Lewy bodies (principal); F02.80 Dementia in other diseases classified elsewhere, unspecified severity, without behavioral disturbance, psychotic disturbance, mood disturbance, and anxiety; Z87.891 Personal history of nicotine dependence | CPT/HCPCS: 96116; 99205 ==

== ENCOUNTER → 2024-12-13 12:59 | Outpatient (BNVA) | payer MEDICARE, MEDICAID, SELFPAY | PROVIDERS: PCP Family Medicine; Visit Provider Family Medicine | DX: I10 Essential (primary) hypertension (principal) | CPT/HCPCS: 80048 ==

== ENCOUNTER → 2025-01-06 15:37 | Outpatient (BNVA) | payer MEDICARE, MEDICAID, SELFPAY | PROVIDERS: PCP Family Medicine; Visit Provider Family Medicine | DX: I10 Essential (primary) hypertension (principal); R53.83 Other fatigue; F51.01 Primary insomnia; M54.12 Radiculopathy, cervical region | CPT/HCPCS: 80053; 82607; 84439; 84443; 85025 ==

== ENCOUNTER 2025-01-07 10:05 | Outpatient (CLI) | payer MEDICARE, MEDICAID, SELFPAY ==
--- NOTE | 2025-01-07 10:11 | XR_ITS ---
WS: [id number] Exam: XR cervical spine 3V* [id number] Date/Time of Exam: 01/07/2025 10:15 AM Reason For Exam: cervical radicular pain C6/C7 No acute fracture. The odontoid is intact. Spondylosis from C4-C7. Degenerative disc narrowing at C6-7. There is straightening and slight reversal of the normal cervical C curve. Normal paraspinal soft tissues. The odontoid is intact. Overall, very little change since the last exam. XR/XR cervical spine 3V* [id number] IMPRESSION: 1. Degenerative changes and straightening. No fracture or malalignment.
== END 2025-01-07 10:06 | disposition home or self-care (01) ==
LOC: RAD 10:09
PROVIDERS: PCP Family Medicine; Visit Provider Family Medicine
DX: M47.22 Other spondylosis with radiculopathy, cervical region (principal); M50.323 Other cervical disc degeneration at C6-C7 level
CPT/HCPCS: 72040

== ENCOUNTER 2025-01-14 11:55 | Outpatient (CLI) | payer MEDICARE, MEDICAID, SELFPAY ==
--- NOTE | 2025-01-14 12:15 | MR_ITS ---
WS: [id number] MRI CERVICAL SPINE NONCONTRAST TECHNIQUE: Sagittal T1, T2 and STIR imaging. Axial T2, gradient, and fiesta imaging. CLINICAL INFORMATION: Cervical OA; R C7 radiculopathy COMPARISON: None. FINDINGS: Straightening the normal cervical lordosis. Small disc osteophyte protrusions at C3 C4 C5-C6 and C6-C7. C2-C3: Mild facet arthropathy. Mild RIGHT foraminal narrowing. C3-C4: Central disc osteophyte protrusion. Moderate RIGHT facet arthropathy. Moderate RIGHT bony foraminal narrowing. Mild central canal stenosis. C4-C5: Central disc protrusion with slight contact of the cervical cord. Moderate facet arthropathy. Mild bilateral bony foraminal narrowing. C5-C6: Central disc osteophyte protrusion with moderate central canal stenosis. Indentation of the cervical cord. Severe LEFT and moderate RIGHT bony foraminal narrowing with facet arthropathy and uncovertebral joint hypertrophy. C6-C7: Central disc osteophyte protrusion with moderate central canal stenosis and indentation of the cervical cord. Severe bilateral bony foraminal narrowing. C7-T1: Eccentric disc bulging with moderate to severe bilateral foraminal narrowing RIGHT greater than LEFT. Visualized brain stem structures: Normal. Prevertebral soft tissues: Normal. MR/MR cervical spin wo con* [id number] IMPRESSION: 1. Moderate central canal stenosis C5-C6 and C6-C7 due to central disc osteoph yte protrusions with indentation on the cervical cord. 2. Mild central canal stenosis C3-C4 with moderate RIGHT foraminal narrowing. 3. Moderate to severe LEFT C5-6 and bilateral C6-7 and bilateral C7-T1 bony fo raminal narrowing.
== END 2025-01-14 11:56 | disposition home or self-care (01) ==
LOC: RAD 11:57
PROVIDERS: PCP Family Medicine; Visit Provider Family Medicine
DX: M54.12 Radiculopathy, cervical region (principal); M48.02 Spinal stenosis, cervical region; M25.78 Osteophyte, vertebrae; M47.892 Other spondylosis, cervical region; M48.03 Spinal stenosis, cervicothoracic region; M50.21 Other cervical disc displacement, high cervical region; M50.221 Other cervical disc displacement at C4-C5 level; M50.222 Other cervical disc displacement at C5-C6 level; M50.223 Other cervical disc displacement at C6-C7 level; M50.33 Other cervical disc degeneration, cervicothoracic region
CPT/HCPCS: 72141

== ENCOUNTER → 2025-02-17 13:54 | Outpatient (BNVA) | payer MEDICARE, MEDICAID, SELFPAY | PROVIDERS: PCP Family Medicine; Visit Provider Nurse Practitioner Family | DX: M54.2 Cervicalgia (principal); G89.29 Other chronic pain | CPT/HCPCS: 99214 ==

== ENCOUNTER → 2025-04-07 14:07 | Outpatient (BNVA) | payer MEDICARE, MEDICAID, SELFPAY | PROVIDERS: PCP Family Medicine; Visit Provider Anesthesiology Pain Medicine | DX: M54.9 Dorsalgia, unspecified (principal); M54.2 Cervicalgia; G89.29 Other chronic pain | CPT/HCPCS: 99214 ==

== ENCOUNTER → 2025-04-29 15:58 | Outpatient (BNVA) | payer OTHER, MEDICAID, SELFPAY | PROVIDERS: PCP Family Medicine; Visit Provider Orthopaedic Surgery | DX: M54.2 Cervicalgia (principal); G89.29 Other chronic pain | CPT/HCPCS: 72050; 99203 ==

== ENCOUNTER → 2025-06-24 11:48 | Outpatient (BNVA) | payer OTHER, MEDICAID, SELFPAY | PROVIDERS: PCP Family Medicine; Referring Provider Orthopaedic Surgery; Visit Provider Specialist | DX: G56.03 Carpal tunnel syndrome, bilateral upper limbs (principal); M79.601 Pain in right arm; G89.29 Other chronic pain; M54.2 Cervicalgia | CPT/HCPCS: 95911 ==

== ENCOUNTER → 2025-07-03 15:34 | Outpatient (BNVA) | payer OTHER, MEDICAID, SELFPAY | PROVIDERS: PCP Family Medicine; Visit Provider Orthopaedic Surgery | DX: G56.03 Carpal tunnel syndrome, bilateral upper limbs (principal) | CPT/HCPCS: 99213 ==

== ENCOUNTER 2025-07-25 19:06 | Emergency (ER) | payer OTHER, MEDICAID, SELFPAY ==
[2025-07-25 19:11] VITALS: BP 134/85; PULSE 78; RESP 22; TEMP 36.6; O2SAT 98
[2025-07-25 20:11] LABS: Hematocrit 44.6 % (36-47); Hemoglobin 14.40 g/dL (11.27-16.99); Mean Corpuscular HGB Conc 32.3 g/dL (30-55); Mean Corpuscular Hemoglobin 29.7 pg (27-33); Mean Corpuscular Volume 92.0 fl (85-98); Nucleated Red Blood Cells % 0 %; Platelet Count 280 10^3/cmm (157-399); Red Blood Count 4.85 10^6/uL (3.85-5.65); White Blood Count 10.84 10^3/uL (3.29-11.43)
[2025-07-25 20:15] LABS: Alanine Aminotransferase 16 U/L (0-33); Albumin Level 4.0 g/dL (3.5-5.2); Alkaline Phosphatase 94 U/L (35-105); Anion Gap 18.9 (5-19); Aspartate Amino Transferase 18 U/L (0-32); Blood Urea Nitrogen 19 mg/dL (8-23); Calcium 10.1 mg/dL (8.5-10.5); Carbon Dioxide 21 mmol/L (22-29); Chloride 104 mmol/L (98-107); Globulin 2.9 g/dL (1.3-4.6); Glucose 99 mg/dL (65-115); Osmolality Calculated 292 mOsm/kg (285-295); Potassium 3.9 mmol/L (3.5-5.1); Sodium 140 mmol/L (136-145); Total Protein 6.9 g/dL (6.6-8.7)
--- NOTE | 2025-07-25 20:15 | CTR_ITS ---
PROCEDURE INFORMATION: Exam: CT Abdomen And Pelvis With Contrast Exam date and time: 07/25/2025 8:45 PM Age: 84 years old Clinical indication: Abdominal pain; Generalized; Prior surgery; Surgery date: 6+ months; Surgery type: Gb, lspine; Additional info: Abd pain vomiting diarrhea TECHNIQUE: Imaging protocol: Computed tomography of the abdomen and pelvis with contrast. Radiation optimization: All CT scans at this facility use at least one of these dose optimization techniques: automated exposure control; mA and/or kV adjustment per patient size (includes targeted exams where dose is matched to clinical indication); or iterative reconstruction. Contrast material: OMNIPAQUE 350; Contrast volume: 100 ml; Contrast route: INTRAVENOUS (IV); COMPARISON: CT abdomen pelvis w con* [id number] 01/01/2020 1:02 AM RADIATION DOSE METRICS: Total DLP (mGy-cm): 687.13 FINDINGS: Liver: Normal. No mass. Gallbladder and biliary ducts: Cholecystectomy clips. Mild prominence of intra and extrahepatic biliary ducts, likely post cholecystectomy changes. Pancreas: Normal. No ductal dilation. Spleen: Old granulomatous disease of spleen. Adrenal glands: Normal. No mass. Kidneys and ureters: Nonspecific although commonly benign renal cysts. Stomach and bowel: Unremarkable. No obstruction. No mucosal thickening. Appendix: No evidence of appendicitis. Intraperitoneal space: Unremarkable. No free air. No significant fluid collection. Vasculature: Aortic atherosclerosis. Lymph nodes: Unremarkable. No enlarged lymph nodes. Urinary bladder: Unremarkable as visualized. Reproductive: Unremarkable as visualized. Bones/joints: Moderate degenerative changes of vertebral bodies with endplate spurring and disc space narrowing. Postsurgical changes of the lumbar spine. Soft tissues: Small fat containing umbilical hernia. CT/CT abdomen pelvis w con* [id number] IMPRESSION: No definite acute abdominopelvic abnormality. Incidentals as above. COMMENTS: Consistent with the [employer]'s Incidental Findings Committee white paper (J Am Carol Radiol 2018): Any incidental renal lesion less than 1 cm or classified as too small to characterize, or any incidental cystic renal lesion characterized as simple-appearing, is likely benign. No follow-up imaging is recommended for these lesions per consensus recommendations based on imaging criteria.
[2025-07-25 20:17] LABS: Creatinine Clr Calc Pharmacy 44.9422
[2025-07-25] MEDS: ondansetron 2 mg/ML SDV 2 mL 4 MG IVP (20:18)
[2025-07-25 20:39] LABS: Add Urine Microscopic? NO
[2025-07-25] MEDS: LORazepam 1 MG/0.5 ML injection IVP (20:42)
[2025-07-25 20:44] LABS: Glucose Urine UA Negative (Normal); Nitrate Urine Negative (Negative); Specific Gravity, Urine 1.020 (1.005-1.030)
[2025-07-25 20:46] LABS: Lipase 47 U/L (13-60)
[2025-07-25] MEDS: iohexol 350 mg/mL 500 mL Btl (per mL) IV (20:47)
[2025-07-25 20:55] LABS: Charge for UA Resulting for Rev
--- NOTE | 2025-07-25 22:04 | W.ED.ABDPA2 ---
HPI - Abdominal Pain General: Chief Complaint: Abdominal Pain Stated Complaint: abdomen and back pain Time Seen by Provider: 07/25/25 20:02 History of Present Illness: Patient is an 84-year-old female who presents with a one-week history of gastrointestinal symptoms. She reports that the illness began one week ago while eating, when she suddenly became sick and started vomiting. The vomiting has resolved over the last couple of days, but she continues to experience diarrhea. She describes lower abdominal pain and low back pain. She denies dysuria. Patient reports having similar but milder symptoms a few weeks ago that resolved spontaneously. She denies fever. No one else in her household (lives with daughter and granddaughter) has been sick with similar symptoms. She has been self-medicating with ltvh-ugy-[id number] Dramamine and other unspecified OTC medications for nausea. Related Data Home Medications ?Medication ?Instructions ?Recorded ?Confirmed aspirin 325 mg tablet 325 mg PO DAILY 11/14/24 07/03/25 cholecalciferol (vitamin D3) 25 25 mcg PO DAILY 11/14/24 07/03/25 mcg (1,000 unit) capsule cranberry fruit 1,000 mg capsule 15,000 mg PO DAILY 11/14/24 07/03/25 glucosamine-chondroitin 250 mg-200 2 tab PO ONCE 11/14/24 07/03/25 mg tablet (Osteo Bi-Flex) magnesium gluconate 27 mg 27 mg PO DAILY 11/14/24 07/03/25 magnesium (500 mg) tablet hhxbdndldfdv-taizfbfi-hteomx tablet 1 tab PO DAILY 11/14/24 07/03/25 nitroglycerin 0.4 mg sublingual 0.4 mg sublingual Q5M PRN 11/14/24 07/03/25 tablet omega-3 360 jf-qta-raq-fish cap PO 11/14/24 07/03/25 oil-vitamin D3 12.5 mcg capsule (Everyday Wantagh Minis) vitamin B comp and C no.3 15 mg-10 1 cap PO DAILY 11/14/24 07/03/25 mg-50 mg-5 mg-300 mg capsule (B Complex Plus Vitamin C) Previous Rx's ?Medication ?Instructions ?Recorded atorvastatin 40 mg tablet 40 mg PO DAILY #90 tabs 02/07/25 buspirone 10 mg tablet 10 mg PO BID #180 tabs 04/25/25 diltiazem HCl 240 mg capsule,24 240 mg PO DAILY #90 caps 02/07/25 hr,extended release hydrochlorothiazide 12.5 mg tablet 12.5 mg PO DAILY #90 tabs 02/07/25 nebivolol 5 mg tablet 5 mg PO DAILY #90 tabs 02/07/25 omeprazole 20 mg capsule,delayed 20 mg PO DAILY #90 caps 02/07/25 release paroxetine HCl 30 mg tablet 30 mg PO DAILY #90 tabs 02/07/25 ropinirole 2 mg tablet 2 mg PO DAILY #90 tabs 02/07/25 trazodone 100 mg tablet 100 mg PO .qpm #90 tabs 02/07/25 clonidine HCl 0.1 mg tablet See Rx Instructions .Route 05/03/25 .COMPLEX #360 tabs losartan 100 mg tablet 50 mg (1/2 x 100 mg) PO DAILY #90 05/06/25 tabs tramadol 50 mg tablet 50 mg PO BID PRN pain #60 tabs 05/06/25 triamcinolone acetonide 0.1 % 1 applic topical DAILY #15 grams 05/06/25 topical cream diphenoxylate-atropine 2.5 1 tab PO TID PRN diarrhea #14 tabs 07/25/25 mg-0.025 mg tablet (Lomotil) ondansetron 4 mg disintegrating 4 mg PO Q6H PRN nausea and 07/25/25 tablet vomiting #14 tabs Allergies Allergy/AdvReac Type Severity Reaction Status Date / Time topiramate (From Topamax) Allergy Severe ADR-Nausea Verified 07/25/25 19:18 latex Allergy Mild blisters Verified 07/25/25 19:18 [facility] ED PFSH: Medical History Chronic pain of right upper extremity Bilateral knee pain Chronic neck pain Pain management contract signed Encounter for chronic pain management Medicare annual wellness visit, subsequent last done [place] 6.20.23 Obstructive sleep apnea didn't tolerate CPAP in past; wants to try again--sleep study ordered for 06/09 Hx of completed stroke Right pontine; per [place] records Cervical radiculopathy at C7 Atherosclerosis of both carotid arteries on US of carotids 2019 Hx of blood clots will get records--she said she was in [facility]; about 4 yrs ago, was in artery of neck Restless leg syndrome CAD (coronary artery disease) no hx of cardiac cath; has had stress test; was told she had old NC on EKG Insomnia used to be on ambien for years then had sleep walking; was on Belsomra; now on trazodone Chronic back pain Peripheral neuropathy idiopathic GERD (gastroesophageal reflux disease) Skin cancer Anxiety Depression Peripheral vascular disease Hyperlipidemia Hypertension Surgical History History of phacoemulsification of cataract of left eye with intraocular lens implantation Hx of vein stripping Hx of colonoscopy 7.5.16 History of lumbar surgery Dr. Omar Figueroa 2014 Hx of basal cell carcinoma excision derm in [place]; has had several excised Hx of tonsillectomy H/O: hysterectomy w/ BSO done for bleeding and pain Hx of cholecystectomy Family History Mother Cancer esophageal--related to alcohol and smoking Father CAD (coronary artery disease) Other Hypertension Leukemia Social History Smoking and tobacco/nicotine status: never used tobacco/nicotine Quit status (tobacco/nicotine): has quit using Year quit tobacco: Alcohol intake: never Substance/Drug Use: never Household members: none Housing: Apartment Marital status: / Number of children: 4 Highest education level completed: Bachelor's Degree 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 Physical Exam Const: GENERAL APPEARANCE: cooperative and ill appearing (Mildly) ORIENTATION/CONSCIOUSNESS: Yes awake, Yes oriented to person, Yes oriented to place and Yes oriented to time HENMT: COMMON NORMALS: normocephalic, atraumatic and Normal external nose present HEAD & SCALP: normocephalic and atraumatic FACE & SINUS: normal facial exam and face symmetric NOSE: Normal external nose present Eye: COMMON NORMALS: Equal, round and reactive pupils present and EOMs intact bilaterally PUPIL: Yes Equal, round and reactive pupils present Neck/C-Spine: GENERAL: Yes trachea midline Chest: CHEST: Yes Symmetrical chest wall rise Resp: COMMON NORMALS: normal respiratory effort, No retractions, No use of accessory muscles and clear to auscultation bilaterally AUSCULTATION: clear to auscultation bilaterally Cardio: COMMON NORMALS: regular rate and regular rhythm RATE: regular rate RHYTHM: regular rhythm GI: COMMON NORMALS: Soft to palpation INSPECTION: Yes abdominal distension AUSCULTATION: Yes Hyperactive bowel sounds present PALPATION: Yes Soft to palpation, Yes Tenderness to palpation present (GI) (Diffuse) and No Guarding due to palpation present (GI) Extremity: COMMON NORMALS: no pedal edema Neuro: KRISTIAN COMA SCALE: document GCS findings Starke coma scale eye opening: Spontaneous Kristian coma scale verbal response: Orientated Starke coma scale motor response: Obey commands Kristian coma scale total score: 15 SENSORIUM/ORIENTATION: Yes oriented to person, Yes oriented to place and Yes oriented to time SENSORY EXAM: Yes extremities (intact) Psych: COMMON NORMALS: speech normal SPEECH: Yes normal speech Skin: COMMON NORMALS: no rashes or lesions noted GENERAL SKIN EXAM: no rashes or lesions noted Course Vital Signs: Vital signs: Vital Signs Temperature 97.8 F 07/25/25 19:11 Pulse Rate 85 07/25/25 22:27 Respiratory Rate 18 07/25/25 22:27 Blood Pressure 158/90 07/25/25 22:27 Pulse Oximetry 94 07/25/25 22:27 MDM - Abdominal Pain Medical Decision Making Improved after fluid and Zofran here. Vital signs are normal. CBC is normal. BMP is not remarkable. CRP is 3. Lipase is 47. Liver enzymes are normal. Urinalysis is negative. Stool is sent for C. difficile and other pathogens. Will await those results. CT of the belly is negative for acute findings. Symptom control. Stable for discharge. Return for worsening symptoms. Lab Data 07/25/25 19:37 07/25/25 19:37 Labs/Radiology: Radiology Impressions Abdomen/Pelvis CT 07/25/25 20:15 IMPRESSION: No definite acute abdominopelvic abnormality. Incidentals as above. COMMENTS: Consistent with the [employer]'s Incidental Findings Committee white paper (J Am Carol Radiol 2018): Any incidental renal lesion less than 1 cm or classified as too small to characterize, or any incidental cystic renal lesion characterized as simple-appearing, is likely benign. No follow-up imaging is recommended for these lesions per consensus recommendations based on imaging criteria. Laboratory Results WBC 10.84 10^3/uL (3.29-11.43) 07/25/25 19:37 RBC 4.85 10^6/uL (3.85-5.65) 07/25/25 19:37 Hgb 14.40 g/dL (11.27-16.99) 07/25/25 19:37 Hct 44.6 % (36-47) 07/25/25 19:37 MCV 92.0 fl (85-98) 07/25/25 19:37 MCH 29.7 pg (27-33) 07/25/25 19:37 MCHC 32.3 g/dL (30-55) 07/25/25 19:37 RDW 12.2 % (12.1-15.1) 07/25/25 19:37 Plt Count 280 10^3/cmm (157-399) 07/25/25 19:37 MPV 11.1 fL (7.4-10.4) H 07/25/25 19:37 Neut % (Auto) 57.2 % 07/25/25 19:37 Lymph % (Auto) 31.7 % 07/25/25 19:37 Bowie % (Auto) 8.5 % 07/25/25 19:37 Eos % (Auto) 1.6 % 07/25/25 19:37 Baso % (Auto) 0.4 % 07/25/25 19:37 Neut # (Auto) 6.21 10^3/uL (1.8-7.7) 07/25/25 19:37 Lymph # (Auto) 3.4 10^3/uL (0.8-4.8) 07/25/25 19:37 Bowie # (Auto) 0.9 10^3/uL (0.2-0.9) 07/25/25 19:37 Eos # (Auto) 0.2 10^3/uL (0.0-0.8) 07/25/25 19:37 Baso # (Auto) 0.0 10^3/uL (0.0-0.1) 07/25/25 19:37 Nucleated RBC % (auto) 0 % 07/25/25 19:37 Nucleated RBCs # 0.0 /100WBC 07/25/25 19:37 Sodium 140 mmol/L (136-145) 07/25/25 19:37 Potassium 3.9 mmol/L (3.5-5.1) 07/25/25 19:37 Chloride 104 mmol/L (98-107) 07/25/25 19:37 Carbon Dioxide 21 mmol/L (22-29) L 07/25/25 19:37 Anion Gap 18.9 (5-19) 07/25/25 19:37 BUN 19 mg/dL (8-23) 07/25/25 19:37 Creatinine 1.0 mg/dL (0.5-0.9) H 07/25/25 19:37 GFR Calculation Not Reportable 07/25/25 19:37 Glucose 99 mg/dL (65-115) 07/25/25 19:37 Calculated Osmolality 292 mOsm/kg (285-295) 07/25/25 19:37 Calcium 10.1 mg/dL (8.5-10.5) 07/25/25 19:37 Total Bilirubin 0.3 mg/dL (0.15-1.2) 07/25/25 19:37 AST 18 U/L (0-32) 07/25/25 19:37 ALT 16 U/L (0-33) 07/25/25 19:37 Alkaline Phosphatase 94 U/L (35-105) 07/25/25 19:37 C-Reactive Protein 3.0 mg/L (0.0-4.9) 07/25/25 14:37 Total Protein 6.9 g/dL (6.6-8.7) 07/25/25 19:37 Albumin 4.0 g/dL (3.5-5.2) 07/25/25 19:37 Globulin 2.9 g/dL (1.3-4.6) 07/25/25 19:37 Lipase 47 U/L (13-60) 07/25/25 14:37 Urine Color Yellow (Yellow) 07/25/25 20:20 Urine Appearance Clear (CLEAR) 07/25/25 20:20 Urine pH 8.5 (5-7) A 07/25/25 20:20 Ur Specific [place] 1.020 (1.005-1.030) 07/25/25 20:20 Urine Protein Trace (Negative) A 07/25/25 20:20 Urine Glucose (UA) Negative (Normal) 07/25/25 20:20 Urine Ketones Trace (Negative) 07/25/25 20:20 Urine Blood Negative (Negative) 07/25/25 20:20 Urine Nitrate Negative (Negative) 07/25/25 20:20 Urine Bilirubin Negative (Negative) 07/25/25 20:20 Urine Urobilinogen 0.2 mg/dL (Negative) 07/25/25 20:20 Ur Leukocyte Esterase Negative (Negative) 07/25/25 20:20 Amorphous Sediment Not Reportable 07/25/25 20:20 C. difficile (PCR) Negative (Negative) 07/25/25 20:08 All radiology interpretation(s) finalized by discharge Discharge Plan Discharge Patient Disposition: Home Clinical Impression: Diarrhea Condition: Stable Prescriptions: New ondansetron 4 mg tablet,disintegrating 4 mg PO Q6H PRN (Reason: nausea and vomiting) Qty: 14 0RF diphenoxylate-atropine [Lomotil] 2.5-0.025 mg tablet 1 tab PO TID PRN (Reason: diarrhea) Qty: 14 0RF No Action losartan 100 mg tablet 50 mg PO DAILY Qty: 90 1RF tramadol 50 mg tablet 50 mg PO BID PRN (Reason: pain) Qty: 60 2RF triamcinolone acetonide 0.1 % cream 1 applic topical DAILY Qty: 15 0RF nitroglycerin 0.4 mg tablet, sublingual 0.4 mg sublingual Q5M PRN Rx Instructions: do not exceed 3 doses per episode aspirin 325 mg tablet 325 mg PO DAILY cranberry fruit 1,000 mg capsule 15,000 mg PO DAILY Rx Instructions: administer with meals cholecalciferol (vitamin D3) 25 mcg (1,000 unit) capsule 25 mcg PO DAILY [id number] Tablet 1 tab PO DAILY glucosamine-chondroitin [Osteo Bi-Flex] 250-200 mg tablet 2 tab PO ONCE Rx Instructions: give after food/meal B Complex Plus Vitamin C [id number] mg capsule 1 cap PO DAILY Rx Instructions: give with food (meal/snack) magnesium gluconate 27 mg magnesium (500 mg) tablet 27 mg PO DAILY Everyday Wantagh Minis 360 mg- 12.5 mcg capsule PO atorvastatin 40 mg tablet 40 mg PO DAILY Qty: 90 3RF buspirone 10 mg tablet 10 mg PO BID Qty: 180 1RF diltiazem HCl 240 mg capsule,extended release 24 hr 240 mg PO DAILY Qty: 90 1RF hydrochlorothiazide 12.5 mg tablet 12.5 mg PO DAILY Qty: 90 3RF nebivolol 5 mg tablet 5 mg PO DAILY Qty: 90 1RF omeprazole 20 mg capsule,delayed release(DR/EC) 20 mg PO DAILY Qty: 90 1RF paroxetine HCl 30 mg tablet 30 mg PO DAILY Qty: 90 1RF ropinirole 2 mg tablet 2 mg PO DAILY Qty: 90 1RF trazodone 100 mg tablet 100 mg PO .qpm Qty: 90 2RF clonidine HCl 0.1 mg tablet See Rx Instructions .ROUTE .COMPLEX Qty: 360 1RF Dose Instruction: TAKE 2 TABLETS BY MOUTH THREE TIMES DAILY as needed for blood pressure over 140 systolic or 90 diastolic Rx Instructions: TAKE 2 TABLETS BY MOUTH THREE TIMES DAILY as needed for blood pressure over 140 systolic or 90 diastolic Discharge Orders: Discharge ED (Routine); Ordered 07/25/25 Ordered By: Hugo Spencer Referrals: Joann Apodaca MD [Primary Care Provider, Family Practice] - 1-3 days Patient Instructions: Acute Diarrhea (ED), Opioid Safety, Pain Management, Patient Portal & Anival Instructions Activity Restrictions/Additional Instructions: Use the medications to manage your symptoms. 1 is for nausea, 1 is for diarrhea. You may take the antidiarrheal medication up to 3 times a day as needed. Return for fever, vomiting liquids or medications despite treatment, worsening pain, other concerning symptoms. Call your doctor Monday for follow-up appointment. Print Language: Algerian Coding Level of Care Code ED [employer] Operator for Miguel Bowser
[2025-07-25 22:27] VITALS: BP 158/90; PULSE 85; RESP 18; O2SAT 94
[2025-07-25 23:24] LABS: C.Diff PCR (Lab) NEGATIVE (Negative)
== END 2025-07-25 22:25 | disposition home or self-care (01) ==
PROVIDERS: Emergency Provider Emergency Medicine; PCP Family Medicine
DX: R19.7 Diarrhea, unspecified (principal); Z79.82 Long term (current) use of aspirin; Z87.891 Personal history of nicotine dependence; I25.10 Atherosclerotic heart disease of native coronary artery without angina pectoris; E78.5 Hyperlipidemia, unspecified; I10 Essential (primary) hypertension
CPT/HCPCS: 36415; 74177; 80053; 81003; 82274; 83630; 83690; 85025; 86140; 87045; 87177; 87209; 87427; 87449; 87493; 96361; 96374; 96375; 99285; J2060; J2405; J7030

== ENCOUNTER 2025-08-22 11:13 | Outpatient (CLI) | payer OTHER, MEDICAID, SELFPAY ==
--- NOTE | 2025-08-22 11:19 | XRR_ITS ---
PROCEDURE INFORMATION: Exam: XR Lumbosacral Spine Exam date and time: 08/22/2025 11:23 AM Age: 84 years old Clinical indication: Low back pain; Prior surgery; Surgery date: 6+ months; Surgery type: Lspine ; gb; History--pain in lower back that radiates to sides of abdomen. Smoking--n. Cancer (type)--skin. Surgery--l-spine, gb; Additional info: Chronic low back pain TECHNIQUE: Imaging protocol: Radiologic exam of the lumbosacral spine. Views: 2 or 3 views. COMPARISON: CT abdomen pelvis w con* [id number] 07/25/2025 8:45 PM FINDINGS: Bones/joints: Fusion and disc postoperative changes at L5-S1. Lumbosacral anatomy is present. Extensive and severe degenerative change throughout the lumbar spine. Levoconvex curvature of the lower lumbar spine with correctional curvature of the upper lumbar spine similar to prior comparisons. Soft tissues: Unremarkable. Organs: Cholecystectomy changes. Vasculature: Extensive atherosclerotic disease. XR/XR lumbar spine 2-3V* [id number] IMPRESSION: Degenerative and postoperative changes without evidence for acute abnormality.
== END 2025-08-22 11:14 | disposition home or self-care (01) ==
LOC: RAD 11:14
PROVIDERS: PCP Family Medicine; Visit Provider Family Medicine
DX: M54.50 Low back pain, unspecified (principal); G89.29 Other chronic pain; M79.601 Pain in right arm; R10.30 Lower abdominal pain, unspecified
CPT/HCPCS: 72100; 87086

== ENCOUNTER 2025-09-22 13:59 | Outpatient (CLI) | payer OTHER, MEDICAID, SELFPAY ==
--- NOTE | 2025-09-22 14:02 | XR_ITS ---
WS: [id number] DEXA (DUAL ENERGY X-RAY ABSORPTIOMETRY) Bone mineral density was performed using a Zuppler machine. HISTORY: OSTEOPOROSIS SCREENING COMPARISON: 11/30/2017 Total hip BMD: Left: 1.310 g/cm2. T score: 2.4 Z score: 4.3 Right: 1.268 g/cm2. T score: 2.1 Z score: 3.9 10 year probability of a major osteoporotic fracture is 6.8%. Compared to the prior study from 11/30/2017. Bilateral hips bone mineral density has decreased by 6.3%. XR/XR DEXA axial skeleton* [id number] IMPRESSION: NORMAL BONE MINERAL DENSITY based upon the WHO classification for females. Sign ificant decrease in bone mineral density within the hips since the prior study.
== END 2025-09-22 14:00 | disposition home or self-care (01) ==
LOC: RAD 13:59
PROVIDERS: PCP Family Medicine; Visit Provider Family Medicine
DX: Z13.820 Encounter for screening for osteoporosis (principal); Z78.0 Asymptomatic menopausal state
CPT/HCPCS: 77080